=== PATIENT | male | born 1970 | race African-American/Black ===

== ENCOUNTER → 2017-01-16 | Outpatient (CLI) | payer OTHER ==
--- NOTE | 2017-01-17 05:29 | EEG ---
DATE OF SERVICE: 01/16/2017 REASON FOR TESTING: Syncope. DESCRIPTION OF THE PROCEDURE: This EEG was performed using a 21-channel digital electroencephalograph, following international 10-20 system. DESCRIPTION OF THE RECORDING: From the beginning of the tracing, and with the patient's eyes closed, the background rhythm was mostly consisting of 8 Hz alpha frequency in the posterior occipital leads. No obvious asymmetry is seen. EKG artifacts are noticed during the tracing. Photic stimulation was performed with a good driving response seen. No pathological waves were elicited. During the tracing, the patient does reach stage II of sleep and occasional K complexes and sleep spindles are seen. Occasional movement artifacts are noticed. No epileptiform discharges were seen. His EKG lead showed a regular rate and rhythm. INTERPRETATION: This asleep and awake EEG can be considered within normal limits. There was no asymmetry seen. No epileptiform discharges were noticed. The absence of epileptiform discharges does not rule out the diagnosis of epilepsy, therefore, clinical correlation is recommended. Thank you Dr. Kaur for allowing me to participate in the care of your patient. If you have any questions, please feel free to contact me. ROS
== END | disposition home or self-care (01) ==
LOC: NEUROMAIN 13:14
PROVIDERS: ATTEND Family Medicine
DX: R55 Syncope and collapse (principal)
CPT/HCPCS: 95819

== ENCOUNTER → 2017-01-23 | Outpatient (CLI) | payer OTHER ==
--- NOTE | 2017-01-23 15:12 | MR ---
EXAMINATION TYPE: MR brain wo con DATE OF EXAM: 01/23/2017 COMPARISON: Correlation CT orbits 09/17/2014 HISTORY: 46-year-old male with Syncope TECHNIQUE: Multiplanar, multisequence images of the brain and brainstem were acquired without IV con trast. Diffusion weighted imaging is performed. FINDINGS: No evidence for acute infarction, hemorrhage, mass, mass effect, midline shift, herniation, effacemen t of basal cisterns, or extra-axial fluid collection. The ventricles and sulci are age-appropriate. Major intracranial flow voids are intact. T2/FLAIR weighted sequences show mild to moderate scattered bright signal foci within the subcortical , deep, and periventricular white matter of both cerebral hemispheres. There are approximately 20 foc i on the right, largest measuring 6 mm in the subcortical frontal region, axial image 21 and approxim ately 30 on the left, largest measuring 6 mm in the anterior subcortical left frontal region, axial i mage 20. Midline structures demonstrate normal morphology. The craniocervical junction is normal. Bilateral exophthalmos is redemonstrated. Wbfe-tu-jocpvbve mucosal thickening within the ethmoid air cells and mild within the mastoid air cells. IMPRESSION: 1. No acute intracranial abnormality seen. 2. Mild to moderate scattered burden of bright white matter change in both cerebral hemispheres. Appr oximately 20 foci on the right and 30 foci on the left. These are nonspecific findings. Some differen tial considerations include age advanced changes of chronic small vessel ischemic disease, chronic mi graines, vasculitis, hypertension, and demyelinating disease. 3. Chronic bilateral exophthalmos. Mild chronic paranasal sinus disease.
== END ==
LOC: RADMRIMAIN 13:49
PROVIDERS: ATTEND Family Medicine
DX: R90.89 Other abnormal findings on diagnostic imaging of central nervous system (principal)
CPT/HCPCS: 70551

== ENCOUNTER 2017-06-19 07:01 | Day surgery (SDC) | payer OTHER ==
[2017-06-18 09:45] VITALS: BMI 32.6
[~2017-06-19 07:01] MED LIST: LACTATED RINGERS 1,000 ML IV SCH
[2017-06-19 07:49] VITALS: TEMP 97.7
[2017-06-19 07:52] LABS: Glucose,Whole Blood 125 mg/dL (75-99)
--- NOTE | 2017-06-19 08:59 | P.PCN ---
Date of Procedure: 06/19/17 Surgeon: Richard Geller Pathology: none sent Condition: stable Disposition: PACU Description of Procedure: PREOPERATIVE DIAGNOSIS: 1-eval pseudotumor cerebri POSTOPERATIVE DIAGNOSIS: same PROCEDURE 1. Diagnostic lumbar puncture ANESTHESIA: Local with 1% lidocaine; conscious sedation with Versed only EBL: Minimal PROCEDURE INDICATION: The patient with persistent headaches due to presumed pseudotumor cerebri presents for diagnostic LP as ordered by Dr. Olmos for opening pressure only. No use of blood thinners. PROCEDURE DESCRIPTION / TECHNIQUE: The patient was seen and identified in the preoperative area. Risks, benefits, complications, and alternatives were discussed with the patient, including but not limited to bleeding, infection, nerve damage, allergic reactions to medications, and spinal headache. The patient agreed to proceed with the procedure and signed the consent after all questions were answered. Vital signs were stable. Patient was taken to the procedure room and time out was completed to confirm patient position, procedure, area of pain, and allergies. The patient was placed in the sitting position on procedure table with help from nursing staff. The lumbosacral area was prepped and draped in the usual sterile fashion. Vital signs were closely monitored during the procedure. After localization with 1% lidocaine, a 22-gauge 3.5-inch spinal needle was placed in the L2-L3 interspace. Stylet was removed and clear cerebrospinal fluid was obtained. Opening pressure was measured at 33 cm H2O. 2 ml CSF was removed. COMPLICATIONS: None COMMENTS: None DISPOSITION / PLANS: The patient was placed in a supine position and transferred to the recovery area in a stable condition for observation. There was no evidence of lower extremity motor or sensory deficit after the procedure. Patient was discharged from the recovery room after meeting discharge criteria. Home discharge instructions were given to the patient by the staff, including regarding hydration and caffeine in order to prevent postdural puncture headache. The patient was reexamined prior to discharge and there were no issues. The patient will follow up with the neurologist as scheduled.
[2017-06-19] MEDS ORDERED: IV FLUID CONTINUATION 400 ML IV ONE (09:07)
[2017-06-19 09:24] VITALS: RESP 18
[2017-06-19 09:39] VITALS: BP 135/79; PULSE 56
== END 2017-06-19 10:36 | disposition home or self-care (01) ==
LOC: ORPAIN 07:01
PROVIDERS: ATTEND Anesthesiology
DX: G93.2 Benign intracranial hypertension (principal); G89.29 Other chronic pain; I10 Essential (primary) hypertension; E05.00 Thyrotoxicosis with diffuse goiter without thyrotoxic crisis or storm; J30.2 Other seasonal allergic rhinitis
CPT/HCPCS: 62270; J2250; 99152

== ENCOUNTER → 2017-09-08 | Outpatient (CLI) | payer OTHER ==
--- NOTE | 2017-09-08 08:46 | MR ---
EXAMINATION TYPE: MR brain wo/w con DATE OF EXAM: 09/08/2017 8:36 AM COMPARISON: Previous study dated 01/23/2017 HISTORY: Headaches, Gadavist 10ml, Previous MRI on PACS TECHNIQUE: Multiplanar, multiecho imaging of the brain was obtained with and without intravenous adm inistration of 10 mL intravenous Gadavist. FINDINGS: Midline structures are unremarkable. There is a normal craniocervical junction. Echoplanar diffusion imaging is normal. There is stable, mild exophthalmos present bilaterally. There is minimal mucoperiosteal thickening in volving ethmoid sinuses. There are normal vascular flow voids. There is no evidence of a CP angle mass lesion There may be a slight increase in the number of high signal FLAIR lesions in both cerebral hemisphere s. There is no mass effect, midline shift or intracranial blood. Following intravenous administration of gadolinium, I do not see evidence of abnormal enhancement. IMPRESSION: 1. NO ACUTE INTRACRANIAL ABNORMALITY. 2. STABLE EXOPHTHALMOS. 3. PERHAPS A SLIGHT INCREASE IN THE NUMBER OF HIGH SIGNAL FLAIR LESIONS IN THE CEREBRAL HEMISPHERES. A DIFFERENTIAL DIAGNOSIS WOULD INCLUDE SMALL VESSEL ISCHEMIC CHANGE, HYPERTENSION, MIGRAINE HEADACHES AND DEMYELINATION.
== END | disposition home or self-care (01) ==
LOC: RADMRIMAIN 07:47
PROVIDERS: ATTEND Psychiatry & Neurology Neurology
DX: H05.20 Unspecified exophthalmos (principal); G93.2 Benign intracranial hypertension
CPT/HCPCS: 70553; A9581

== ENCOUNTER → 2017-09-10 | Outpatient (CLI) | payer OTHER ==
--- NOTE | 2017-09-10 14:19 | CT ---
EXAMINATION TYPE: CT abdomen pelvis w con DATE OF EXAM: 09/10/2017 COMPARISON: NONE HISTORY: Abdominal pain and elevated LFT's CT DLP: 1509.70 mGycm Automated exposure control for dose reduction was used. TECHNIQUE: Helical acquisition of images was performed from the lung bases through the pelvis. CONTRAST: Performed with Oral Contrast and with IV Contrast, patient injected with 100 ml mL of Isovue 300. FINDINGS: LUNG BASES: Unremarkable LIVER/GB: Hepatic parenchyma is diffusely hypoattenuated in comparison to that of the spleen, most co mmonly seen in hepatic steatosis. This finding limits evaluation for hepatic masses. No gross evidenc e of hepatic mass is seen. No intrahepatic biliary ductal dilatation. No cholelithiasis . PANCREAS: No significant abnormality is seen. SPLEEN: No significant abnormality is seen. ADRENALS: No significant abnormality is seen. KIDNEYS: Too small to accurately characterize 3 mm left lower pole renal lesion is identified.. Other henning the kidneys enhance and excrete symmetrically without hydronephrosis. FREE AIR: No free air is visualized. REPRODUCTIVE ORGANS: Prostate gland is slightly heterogenous containing few central zone calcificatio ns. URINARY BLADDER: Urinary bladder is decompressed and incompletely evaluated. ADENOPATHY: No greater than 1 cm short axis lymph nodes are seen within the abdomen or pelvis. OSSEOUS STRUCTURES: Osseous structures are intact.. Mild degenerative changes are seen of the visual ized thoracolumbar spine. BOWEL: Multiple sigmoid diverticula are noted without pericolonic fat stranding. No evidence of srini l obstruction. Appendix is contrast-filled and within normal limits of size. OTHER: Subcentimeter periumbilical hernia is identified. IMPRESSION: FINDINGS MOST COMPATIBLE WITH HEPATIC STEATOSIS, APPEARING MILD IN DEGREE.
== END | disposition home or self-care (01) ==
LOC: RADCTMAIN 11:30
PROVIDERS: ATTEND Family Medicine
DX: R10.84 Generalized abdominal pain (principal); R94.5 Abnormal results of liver function studies
CPT/HCPCS: 74177; Q9967

== ENCOUNTER → 2018-02-07 | Outpatient (CLI) | payer OTHER ==
--- NOTE | 2018-02-08 07:57 | CT ---
EXAMINATION TYPE: CT abdomen pelvis w con DATE OF EXAM: 02/07/2018 COMPARISON: September 10, 2017 HISTORY: Pancreatic mass. CT DLP: 2068.1 mGycm CONTRAST: CT scan of the abdomen and pelvis is performed without Oral Contrast and with IV Contrast, patient in jected with 100 mL of Isovue 370. FINDINGS: LUNG BASES-: No visible nodule. No infiltrate. LIVER/GB: No calcified gallstones. Hepatic steatosis again noted. No space occupying hepatic lesio n. Biliary tree is of normal caliber. PANCREAS: No inflammation. No distinct mass. SPLEEN: No splenic enlargement. No lesion seen. ADRENALS: No nodule. No thickening. KIDNEYS/BLADDER: No hydronephrosis. No nephrolithiasis. No distinct renal mass. Urinary bladder g rossly unremarkable. BOWEL: Normal appendix. Normal bowel caliber. No inflammation. GENITAL ORGANS: No gross abnormality. LYMPH NODES: No greater than 1cm abdominal or pelvic lymph nodes are appreciated. AORTA: No significant abnormality. OSSEOUS STRUCTURES: No significant abnormality is seen. OTHER: No significant additional abnormality is seen. IMPRESSION: 1. Hepatic steatosis. 2. No evidence for pancreatic mass at this time.
== END | disposition home or self-care (01) ==
LOC: RADCTMAIN 18:08
PROVIDERS: ATTEND Family Medicine
DX: K76.0 Fatty (change of) liver, not elsewhere classified (principal)
CPT/HCPCS: 82565; 84520; 74177; 36415; Q9967

== ENCOUNTER → 2018-10-14 | Outpatient (CLI) | payer OTHER ==
--- NOTE | 2018-10-14 09:02 | CT ---
EXAMINATION TYPE: CT brain wo con, CT orbits wo con DATE OF EXAM: 10/14/2018 COMPARISON: MRI brain September 08, 2017. CT orbits September 17, 2014. HISTORY: Thyrotoxicosis with diffuse goiter, Graves disease and pseudo tumor cerebri. (accession [id number]), Thyrotoxicosis with diffuse goiter, Graves disease and pseudo tumor cerebri (accession [id number]) CT DLP: 1121.01 (accession [id number]), 391.11 (accession [id number]) mGycm. Automated Exposure Control for Dose Reduction was Utilized. TECHNIQUE: CT scan of the head and orbits are performed without contrast. FINDINGS: There is no acute intracranial hemorrhage, mass effect, or midline shift identified. The ventricles and sulci are within normal limits in size. Multifocal areas of low attenuation throughou t the white matter are present seen better on prior MRI. The calvarium is intact. Mastoid air cells s how no suspicious opacification. Mild mucosal thickening involving ethmoid sinuses bilaterally as well as anterior aspect bilateral sp henoid sinuses and inferior aspect right maxillary sinus is present. Old depressed fracture deformity nasal bridge is redemonstrated. There is bilateral proptosis redemonstrated. Intraconal fat is prese rved. Rectus muscles are symmetric and felt within normal limits. Orbital floors and quezada are intact . Suprasellar cistern is maintained. Optic chiasm is not effaced. IMPRESSION: 1. No acute intracranial hemorrhage or midline shift. Nonspecific mild to moderate white matter joya es redemonstrated seen better on MRI versus today's CT. 2. Stable bilateral exophthalmus.
== END ==
LOC: RADCTMAIN 08:13
PROVIDERS: ATTEND Ophthalmology
DX: E05.00 Thyrotoxicosis with diffuse goiter without thyrotoxic crisis or storm (principal); G93.2 Benign intracranial hypertension; I10 Essential (primary) hypertension; E11.9 Type 2 diabetes mellitus without complications; H05.20 Unspecified exophthalmos
CPT/HCPCS: 70450; 70480

== ENCOUNTER 2018-11-05 09:04 | Emergency (ER) | payer OTHER ==
[2018-11-05 09:10] VITALS: RESP 18
[2018-11-05] MEDS ORDERED: ONDANSETRON 4 MG/2 ML VIAL IVP STA (09:24)
[2018-11-05] MEDS ORDERED: MORPHINE SULFATE 4 MG/ML SYRINGE IV STA (09:24)
[2018-11-05] MEDS ORDERED: SODIUM CHLORIDE 0.9% 1,000 ML IV STA (09:24)
--- NOTE | 2018-11-05 09:28 | ED ---
General Adult HPI - General Chief complaint: Back Pain/Injury Stated complaint: Back pain Time Seen by Provider: 11/05/18 09:18 Source: patient, RN notes reviewed Mode of arrival: ambulatory Limitations: no limitations - History of Present Illness Initial comments: 48-year-old male presents emergency Department chief complaint of right flank pain. Patient states this was nauseated yesterday but woke up With worsening right flank pain that radiates into his abdomen. Patient states he still has some nausea no vomiting. He does take [place] is not alleviating his symptoms at this time. Patient denies fever, chills, chest pain or shortness breath. His pain is fairly exacerbated by movement but states it's not his typical back pain that he takes medications for. Denies any bowel bladder incontinence or retention. Patient states that he's been urinating more frequently but states that it is a large amount of urine out he states it's not hesitancy or dribbling. - Related Data Home Medications Medication Instructions Recorded Confirmed Albuterol Inhaler [Ventolin Hfa 1 - 2 puff INHALATION RT-Q6H PRN 06/18/17 11/05/18 Inhaler] Cetirizine HCl [Zyrtec] 10 mg PO HS 06/18/17 11/05/18 HYDROcodone/APAP 10-325MG [[place] 1 tab PO Q6H PRN 06/18/17 11/05/18 10-325] Levothyroxine Sodium [Synthroid] 112 mcg PO 1100 06/18/17 11/05/18 Lisinopril [Zestril] 5 mg PO 1100 06/18/17 11/05/18 Montelukast [Singulair] 10 mg PO HS 06/18/17 11/05/18 Acetaminophen [Tylenol] 650 mg PO Q6H 11/05/18 11/05/18 Atorvastatin [Lipitor] 10 mg PO DAILY 11/05/18 11/05/18 Bisoprolol-Hctz 10-6.25 mg [Ziac 1 tab PO DAILY 11/05/18 11/05/18 10-6.25 MG] Fluticasone/Salmeterol 1 puff INHALATION RT-BID 11/05/18 11/05/18 [Fluticasone-Salmeterol 113-14] Ipratropium Winn 0.06%Nasal 2 sprays EA NOSTRIL BID 11/05/18 11/05/18 [Atrovent Nasal 0.06%] Liraglutide [Victoza 3-Eliu] 1.2 mg SQ DAILY 11/05/18 11/05/18 Omeprazole 40 mg PO DAILY 11/05/18 11/05/18 Pioglitazone [Actos] 45 mg PO DAILY 11/05/18 11/05/18 Allergies Allergy/AdvReac Type Severity Reaction Status Date / Time Pork/Porcine Containing Allergy Nausea & Verified 11/05/18 09:21 Products Vomiting & [Pork] Diarrhea Review of Systems ROS Statement: Those systems with pertinent positive or pertinent negative responses have been documented in the HPI. ROS Other: All systems not noted in ROS Statement are negative. Past Medical History Past Medical History: Asthma, Diabetes Mellitus, Hypertension, Pneumonia, Sleep Apnea/CPAP/BIPAP, Thyroid Disorder Additional Past Medical History / Comment(s): recent pneumonia, migraines, used to use CPAP History of Any Multi-Drug Resistant Organisms: None Reported Past Surgical History: Orthopedic Surgery Additional Past Surgical History / Comment(s): arthroscopy knee Past Anesthesia/Blood Transfusion Reactions: No Reported Reaction Past Psychological History: No Psychological Hx Reported Smoking Status: Never smoker Past Alcohol Use History: Occasional Past Drug Use History: Marijuana - Past Family History Mother Family Medical History: No Reported History General Exam Limitations: no limitations General appearance: alert, in no apparent distress Head exam: Present: atraumatic, normocephalic, normal inspection Neck exam: Present: normal inspection. Absent: tenderness, meningismus, lymphadenopathy Respiratory exam: Present: normal lung sounds bilaterally. Absent: respiratory distress, wheezes, rales, rhonchi, stridor Cardiovascular Exam: Present: regular rate, normal rhythm, normal heart sounds. Absent: systolic murmur, diastolic murmur, rubs, gallop, clicks GI/Abdominal exam: Present: soft, tenderness (Mild right-sided), normal bowel sounds. Absent: distended, guarding, rebound, rigid Back exam: Present: CVA tenderness (R). Absent: CVA tenderness (L) Skin exam: Present: warm, dry, intact, normal color. Absent: rash Course Vital Signs 11/05/18 09:07 Temperature 98.5 F Pulse Rate 74 Respiratory 18 Rate Blood Pressure 133/91 O2 Sat by Pulse 98 Oximetry Medical Decision Making - Medical Decision Making 48-year-old male present emergency from for right flank pain. Patient CT labs and urinalysis which unremarkable. This may be related to his chronic back pain with acute exacerbation. Patient will be discharged return parameters were discussed. Patient has no red flag symptoms. - Lab Data Result diagrams: 11/05/18 09:44 11/05/18 09:44 Lab Results 11/05/18 11/05/18 11/05/18 Range/Units 09:44 09:44 11:05 WBC 5.4 (3.8-10.6) k/uL RBC 4.74 (4.30-5.90) m/uL Hgb 14.1 (13.0-17.5) gm/dL Hct 43.1 (39.0-53.0) % MCV 91.0 (80.0-100.0) fL MCH 29.7 (25.0-35.0) pg MCHC 32.6 (31.0-37.0) g/dL RDW 14.9 (11.5-15.5) % Plt Count 269 (150-450) k/uL Neutrophils % 56 % Lymphocytes % 27 % Monocytes % 5 % Eosinophils % 9 % Basophils % 0 % Neutrophils # 3.0 (1.3-7.7) k/uL Lymphocytes # 1.5 (1.0-4.8) k/uL Monocytes # 0.3 (0-1.0) k/uL Eosinophils # 0.5 (0-0.7) k/uL Basophils # 0.0 (0-0.2) k/uL Sodium 138 (137-145) mmol/L Potassium 4.7 (3.5-5.1) mmol/L Chloride 104 (98-107) mmol/L Carbon Dioxide 29 (22-30) mmol/L Anion Gap 5 mmol/L BUN 14 (9-20) mg/dL Creatinine 1.47 H (0.66-1.25) mg/dL Est GFR (CKD-EPI)AfAm 65 (>60 ml/min/1.73 sqM) Est GFR (CKD-EPI)NonAf 57 (>60 ml/min/1.73 sqM) Glucose 122 H (74-99) mg/dL Calcium 9.5 (8.4-10.2) mg/dL Total Bilirubin 0.5 (0.2-1.3) mg/dL AST 30 (17-59) U/L ALT 32 (21-72) U/L Alkaline Phosphatase 73 (38-126) U/L Total Protein 7.3 (6.3-8.2) g/dL Albumin 4.1 (3.5-5.0) g/dL Amylase 78 (30-110) U/L Lipase 150 (23-300) U/L Urine Color Light Yellow Urine Appearance Clear (Clear) Urine pH 7.0 (5.0-8.0) Ur Specific Leonard 1.007 (1.001-1.035) Urine Protein Negative (Negative) Urine Glucose (UA) Negative (Negative) Urine Ketones Negative (Negative) Urine Blood Negative (Negative) Urine Nitrite Negative (Negative) Urine Bilirubin Negative (Negative) Urine Urobilinogen <2.0 (<2.0) mg/dL Ur Leukocyte Esterase Negative (Negative) Disposition Clinical Impression: Flank pain, Back pain Disposition: HOME SELF-CARE Instructions (If sedation given, give patient instructions): Acute Low Back Pain (ED) Additional Instructions: Please return to the Emergency Department if symptoms worsen or any other concerns. Is patient prescribed a controlled substance at d/c from ED?: No Referrals: Jimena Arevalo DO [Primary Care Provider] - 1-2 days Time of Disposition: 11:45
--- NOTE | 2018-11-05 10:15 | CT ---
EXAMINATION TYPE: CT abdomen pelvis wo con DATE OF EXAM: 11/05/2018 HISTORY: Right flank pain CT DLP: 883.6 mGycm. Automated Exposure Control for Dose Reduction was Utilized. TECHNIQUE: CT scan of the abdomen and pelvis is performed without oral or IV contrast. COMPARISON: CT abdomen pelvis February 07, 2018 FINDINGS: Within the limitations of a non-contrast study, the following observations are made. LUNG BASES: No significant abnormality is appreciated. LIVER/GB: No significant abnormality is appreciated. PANCREAS: No significant abnormality is seen. SPLEEN: No significant abnormality is seen. ADRENALS: No significant abnormality is seen. KIDNEYS: No renal calculi or hydronephrosis is seen bilaterally. No intraluminal calculus in the blad brianna is present. Left-sided pelvic phlebolith is noted axial image 139. BOWEL: Evaluation of bowel is suboptimal secondary to lack of enteric contrast. There is no suspiciou s small or large bowel dilatation. Appendix felt within normal limits descending from cecum in the ri ght lower quadrant medial aspect. GENITAL ORGANS: No gross abnormality seen. LYMPH NODES: No greater than 1cm abdominal or pelvic lymph nodes are appreciated. OSSEOUS STRUCTURES: Spine is straightened on sagittal images with disc herniation L4-L5 level. Mild t o moderate narrowing and acetabular spurring in both hips is present. OTHER: No significant additional abnormality is seen. IMPRESSION: No renal stones or hydronephrosis is seen bilaterally. No suspicious acute findings seen to account for patient's symptoms of right-sided flank pain.
[2018-11-05 10:19] LABS: Albumin 4.1 g/dL (3.5-5.0); Calcium 9.5 mg/dL (8.4-10.2); Potassium 4.7 mmol/L (3.5-5.1); Total Bilirubin 0.5 mg/dL (0.2-1.3); Total Protein 7.3 g/dL (6.3-8.2)
[2018-11-05 10:23] LABS: Basophils % (A) 0 %; Eosinophils # (A) 0.5 k/uL (0-0.7); Eosinophils % (A) 9 %; HCT 43.1 % (39.0-53.0); HGB 14.1 gm/dL (13.0-17.5); Lymphocytes # (A) 1.5 k/uL (1.0-4.8); Lymphocytes % (A) 27 %; MCH 29.7 pg (25.0-35.0); MCHC 32.6 g/dL (31.0-37.0); Mean Platelet Volume 7.3; Monocytes # (A) 0.3 k/uL (0-1.0); Monocytes % (A) 5 %; Neutrophils % (A) 56 %; Platelet Count 269 k/uL (150-450); RBC 4.74 m/uL (4.30-5.90); RDW 14.9 % (11.5-15.5); WBC 5.4 k/uL (3.8-10.6)
[2018-11-05 11:26] LABS: Appearance,Urine Clear (Clear); Bilirubin,Urine Negative (Negative); Blood,Urine Negative (Negative); Color,Urine Light Yellow; Glucose,Urine (UA) Negative (Negative); Ketones,Urine Negative (Negative); Leukocyte Esterase,Urine Negative (Negative); Nitrite,Urine Negative (Negative); Protein,Urine Negative (Negative); Specific Gravity,Urine 1.007 (1.001-1.035); Urobilinogen,Urine <2.0 mg/dL (<2.0)
[2018-11-05 12:09] VITALS: BP 123/73; PULSE 60; TEMP 97.8
== END 2018-11-05 12:08 | disposition home or self-care (01) ==
LOC: EC 09:04
DX: R10.9 Unspecified abdominal pain (principal); M54.9 Dorsalgia, unspecified; J45.909 Unspecified asthma, uncomplicated; E11.9 Type 2 diabetes mellitus without complications; I10 Essential (primary) hypertension; G47.30 Sleep apnea, unspecified; Z99.89 Dependence on other enabling machines and devices; E07.9 Disorder of thyroid, unspecified; Z79.890 Hormone replacement therapy; Z79.899 Other long term (current) drug therapy; Z91.018 Allergy to other foods
CPT/HCPCS: 36415; 80053; 82150; 83690; 85025; 81003; 74176; 99284; 96374; 96375; 96361; J2270; J2405

== ENCOUNTER 2020-04-27 21:54 | Emergency (ER) | payer OTHER ==
[2020-04-27 22:07] VITALS: BP 148/90; PULSE 65; RESP 16; TEMP 98.3
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
[2020-04-27] MEDS ORDERED: KETOROLAC 15 MG/ML 1 ML VIAL IM STA (23:14)
== END 2020-04-27 23:28 | disposition home or self-care (01) ==
LOC: EC 21:54
DX: S46.812A Strain of other muscles, fascia and tendons at shoulder and upper arm level, left arm, initial encounter (principal); J45.909 Unspecified asthma, uncomplicated; E11.9 Type 2 diabetes mellitus without complications; I10 Essential (primary) hypertension; G47.30 Sleep apnea, unspecified; E07.9 Disorder of thyroid, unspecified; Z79.890 Hormone replacement therapy; Z79.51 Long term (current) use of inhaled steroids; Z79.899 Other long term (current) drug therapy; Z91.018 Allergy to other foods; Z99.89 Dependence on other enabling machines and devices; V89.2XXA Person injured in unspecified motor-vehicle accident, traffic, initial encounter; Y92.410 Unspecified street and highway as the place of occurrence of the external cause
CPT/HCPCS: 72125; 70450; 99284; 96372; J1885

== ENCOUNTER → 2020-07-09 | Outpatient (CLI) | payer OTHER ==
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
== END | disposition home or self-care (01) ==
LOC: RADMRIMAIN 13:29
PROVIDERS: ATTEND Physical Medicine & Rehabilitation
DX: M47.26 Other spondylosis with radiculopathy, lumbar region (principal)
CPT/HCPCS: 72158; A9585

== ENCOUNTER → 2020-08-23 | Outpatient (CLI) | payer OTHER ==
--- NOTE | 2020-08-23 16:00 | XR ---
EXAMINATION TYPE: XR thoracic spine complete, 3 views DATE OF EXAM: 08/23/2020 Comparison: None Clinical History: 50-year-old male M51.37 DDD Findings: 12 rib-bearing thoracic vertebral bodies. All pedicles are visualized. Mild degenerative disc disease and endplate spondylosis throughout. Vertebral body heights are preserved and alignment is maintaine d. Impression: Mild degenerative disc disease and endplate spondylosis throughout. No vertebral compression collapse or malalignment.
== END ==
LOC: RADXRMAIN 14:14
PROVIDERS: ATTEND Physical Medicine & Rehabilitation
DX: M51.37 Other intervertebral disc degeneration, lumbosacral region (principal); M47.817 Spondylosis without myelopathy or radiculopathy, lumbosacral region
CPT/HCPCS: 72072

== ENCOUNTER → 2021-02-09 | Outpatient (CLI) | payer OTHER ==
[2021-02-09 09:08] VITALS: BP 128/85; PULSE 69; RESP 18; TEMP 97.9
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
== END ==
LOC: PNWHC3 08:53
PROVIDERS: ATTEND Specialist
DX: M51.36 Other intervertebral disc degeneration, lumbar region (principal); M47.816 Spondylosis without myelopathy or radiculopathy, lumbar region; M51.34 Other intervertebral disc degeneration, thoracic region; M79.18 Myalgia, other site; J45.909 Unspecified asthma, uncomplicated; E11.9 Type 2 diabetes mellitus without complications; I10 Essential (primary) hypertension; G43.909 Migraine, unspecified, not intractable, without status migrainosus; Z79.84 Long term (current) use of oral hypoglycemic drugs; Z79.899 Other long term (current) drug therapy; Z91.018 Allergy to other foods
CPT/HCPCS: 99211

== ENCOUNTER 2021-02-10 16:52 | Observation (INO) | payer OTHER ==
[2021-02-10] MEDS ORDERED: SODIUM CHLORIDE 0.9% 1,000 ML IV STA (19:54)
[2021-02-10] MEDS ORDERED: KETOROLAC 15 MG/ML 1 ML VIAL IVP STA (19:55)
--- NOTE | 2021-02-10 19:57 | ED ---
Abdominal Pain HPI - General Chief Complaint: Abdominal Pain Stated Complaint: Abd pain Time Seen by Provider: 02/10/21 19:25 Source: patient, RN notes reviewed Mode of arrival: ambulatory Limitations: no limitations - History of Present Illness Initial Comments: 42-year-old male history diabetes who states he was feeling well until last evening when he started developing some nonspecific abdominal discomfort he later developed some nausea with dry heaves he fell he was constipated cardiac bowel movements and didn't pass much. He states he later vomited up what appear to be a meal from a couple days ago. On further questioning states he is not p assing gas. He's had some chills no fevers no sweats some other symptoms reported at this time. No prior abdominal surgeries. MD Complaint: abdominal pain - Related Data Home Medications Medication Instructions Recorded Confirmed Cetirizine HCl [Zyrtec] 10 mg PO BID PRN 06/18/17 02/07/21 HYDROcodone/APAP 10-325MG [[place] 1 tab PO QID PRN 06/18/17 02/07/21 10-325] Levothyroxine Sodium [Synthroid] 112 mcg PO DAILY 06/18/17 02/07/21 Montelukast [Singulair] 10 mg PO DAILY 06/18/17 02/07/21 Bisoprolol-Hctz 10-6.25 mg [Ziac 1 tab PO DAILY 11/05/18 02/07/21 10-6.25 MG] Fluticasone/Salmeterol 2 puff INHALATION RT-BID PRN 11/05/18 02/07/21 [Fluticasone-Salmeterol 113-14] Ipratropium [place] 0.06%Nasal 2 sprays EA NOSTRIL BID PRN 11/05/18 02/07/21 [Atrovent Nasal 0.06%] lisinopriL [Zestril] 5 mg PO DAILY 04/27/20 02/07/21 Diabetic Med (Unknown Name) 1 tab PO DAILY 02/07/21 02/07/21 Liraglutide [Victoza 3-Eliu] 1.8 mg SQ DAILY 02/07/21 02/07/21 Previous Rx's Medication Instructions Recorded Cyclobenzaprine [Flexeril] 5 mg PO BID PRN #10 tablet 04/27/20 Allergies Allergy/AdvReac Type Severity Reaction Status Date / Time Pork/Porcine Containing Allergy Nausea & Verified 02/10/21 19:02 Products Vomiting & [Pork] Diarrhea Review of Systems ROS Statement: Those systems with pertinent positive or pertinent negative responses have been documented in the HPI. ROS Other: All systems not noted in ROS Statement are negative. Past Medical History Past Medical History: Asthma, Diabetes Mellitus, Hypertension, Musculoskeletal Disorder, Pneumonia, Sleep Apnea/CPAP/BIPAP, Thyroid Disorder Additional Past Medical History / Comment(s): Hx Pneumonia, chronic migraines, used to use CPAP, Degenerative Disc Disease. Received last dose of Moderna 09/29/20. Chronic back pain. History of Any Multi-Drug Resistant Organisms: None Reported Past Surgical History: Orthopedic Surgery Additional Past Surgical History / Comment(s): Bilateral knee arthroscopy knee, spinal tap. Past Anesthesia/Blood Transfusion Reactions: No Reported Reaction Past Psychological History: No Psychological Hx Reported Smoking Status: Never smoker Past Alcohol Use History: Rare Past Drug Use History: Marijuana - Past Family History Mother Family Medical History: No Reported History General Exam - General Exam Comments Initial Comments: Is a well-developed well-nourished awake alert oriented times 3 male Limitations: no limitations General appearance: alert, in no apparent distress Head exam: Present: atraumatic, normocephalic, normal inspection Eye exam: Present: normal appearance, PERRL, EOMI. Absent: scleral icterus, conjunctival injection, periorbital swelling ENT exam: Present: normal exam, mucous membranes moist Neck exam: Present: normal inspection. Absent: tenderness, meningismus, lymphadenopathy Respiratory exam: Present: normal lung sounds bilaterally. Absent: respiratory distress, wheezes, rales, rhonchi, stridor Cardiovascular Exam: Present: regular rate, normal rhythm, normal heart sounds. Absent: systolic murmur, diastolic murmur, rubs, gallop, clicks GI/Abdominal exam: Present: soft, tenderness, normal bowel sounds. Absent: distended, guarding, rebound, rigid Extremities exam: Present: normal inspection, full ROM, normal capillary refill. Absent: tenderness, pedal edema, joint swelling, calf tenderness Back exam: Present: normal inspection Neurological exam: Present: alert, oriented X3, CN II-XII intact Psychiatric exam: Present: normal affect, normal mood Skin exam: Present: warm, dry, intact, normal color. Absent: rash Course Vital Signs 02/10/21 18:55 Temperature 98.3 F Pulse Rate 69 Respiratory 17 Rate Blood Pressure 132/83 O2 Sat by Pulse 97 Oximetry Medical Decision Making - Medical Decision Making Reevaluation patient reveals he still feels nauseated with abdominal discomfort. I did discuss the findings with him and his family also with Dr. Casas patient be admitted for IV fluids and evaluation repeat lipase in the morning - Lab Data Result diagrams: 02/10/21 20:22 02/10/21 20:22 Lab Results 02/10/21 02/10/21 02/10/21 Range/Units 20:22 20: 20:22 WBC 9.8 (3.8-10.6) k/uL RBC 4.97 (4.30-5.90) m/uL Hgb 15.6 (13.0-17.5) gm/dL Hct 45.7 (39.0-53.0) % MCV 91.9 (80.0-100.0) fL MCH 31.5 (25.0-35.0) pg MCHC 34.3 (31.0-37.0) g/dL RDW 13.9 (11.5-15.5) % Plt Count 294 (150-450) k/uL MPV 7.5 Neutrophils % 64 % Lymphocytes % 25 % Monocytes % 4 % Eosinophils % 4 % Basophils % 1 % Neutrophils # 6.3 (1.3-7.7) k/uL Lymphocytes # 2.4 (1.0-4.8) k/uL Monocytes # 0.4 (0-1.0) k/uL Eosinophils # 0.4 (0-0.7) k/uL Basophils # 0.1 (0-0.2) k/uL Sodium 139 (137-145) mmol/L Potassium 3.8 (3.5-5.1) mmol/L Chloride 102 (98-107) mmol/L Carbon Dioxide 27 (22-30) mmol/L Anion Gap 10 mmol/L BUN 13 (9-20) mg/dL Creatinine 1.52 H (0.66-1.25) mg/dL Est GFR (CKD-EPI)AfAm 62 (>60 ml/min/1.73 sqM) Est GFR (CKD-EPI)NonAf 54 (>60 ml/min/1.73 sqM) Glucose 110 H (74-99) mg/dL Plasma Lactic Acid Cj (0.7-2.0) mmol/L Calcium 10.0 (8.4-10.2) mg/dL Total Bilirubin 0.6 (0.2-1.3) mg/dL AST 42 (17-59) U/L ALT 52 H (4-49) U/L Alkaline Phosphatase 99 (38-126) U/L Creatine Kinase 419 H (55-170) U/L Troponin I (0.000-0.034) ng/mL Total Protein 8.1 (6.3-8.2) g/dL Albumin 4.6 (3.5-5.0) g/dL Amylase 123 H (30-110) U/L Lipase 356 H (23-300) U/L Urine Color Yellow Urine Appearance Clear (Clear) Urine pH 6.0 (5.0-8.0) Ur Specific [place] 1.025 (1.001-1.035) Urine Protein 1+ H (Negative) Urine Glucose (UA) Negative (Negative) Urine Ketones Negative (Negative) Urine Blood Trace H (Negative) Urine Nitrite Negative (Negative) Urine Bilirubin Negative (Negative) Urine Urobilinogen <2.0 (<2.0) mg/dL Ur Leukocyte Esterase Negative (Negative) Urine RBC 1 (0-5) /hpf Urine WBC 14 H (0-5) /hpf Urine Mucus Rare H (None) /hpf 02/10/21 02/10/21 Range/Units 20:22 20:22 WBC (3.8-10.6) k/uL RBC (4.30-5.90) m/uL Hgb (13.0-17.5) gm/dL Hct (39.0-53.0) % MCV (80.0-100.0) fL MCH (25.0-35.0) pg MCHC (31.0-37.0) g/dL RDW (11.5-15.5) % Plt Count (150-450) k/uL MPV Neutrophils % % Lymphocytes % % Monocytes % % Eosinophils % % Basophils % % Neutrophils # (1.3-7.7) k/uL Lymphocytes # (1.0-4.8) k/uL Monocytes # (0-1.0) k/uL Eosinophils # (0-0.7) k/uL Basophils # (0-0.2) k/uL Sodium (137-145) mmol/L Potassium (3.5-5.1) mmol/L Chloride (98-107) mmol/L Carbon Dioxide (22-30) mmol/L Anion Gap mmol/L BUN (9-20) mg/dL Creatinine (0.66-1.25) mg/dL Est GFR (CKD-EPI)AfAm (>60 ml/min/1.73 sqM) Est GFR (CKD-EPI)NonAf (>60 ml/min/1.73 sqM) Glucose (74-99) mg/dL Plasma Lactic Acid Cj 1.1 (0.7-2.0) mmol/L Calcium (8.4-10.2) mg/dL Total Bilirubin (0.2-1.3) mg/dL AST (17-59) U/L ALT (4-49) U/L Alkaline Phosphatase (38-126) U/L Creatine Kinase (55-170) U/L Troponin I <0.012 (0.000-0.034) ng/mL Total Protein (6.3-8.2) g/dL Albumin (3.5-5.0) g/dL Amylase (30-110) U/L Lipase (23-300) U/L Urine Color Urine Appearance (Clear) Urine pH (5.0-8.0) Ur Specific [place] (1.001-1.035) Urine Protein (Negative) Urine Glucose (UA) (Negative) Urine Ketones (Negative) Urine Blood (Negative) Urine Nitrite (Negative) Urine Bilirubin (Negative) Urine Urobilinogen (<2.0) mg/dL Ur Leukocyte Esterase (Negative) Urine RBC (0-5) /hpf Urine WBC (0-5) /hpf Urine Mucus (None) /hpf - Radiology Data Radiology results: report reviewed (Imaging reviewed and report reviewed no acute findings), image reviewed Disposition Clinical Impression: Abdominal pain, Constipation, Pancreatitis, Dehydration Disposition: ADMITTED IP TO THIS [facility] Condition: Fair Referrals: Jimena Arevalo DO [Primary Care Provider] - 1-2 days
[2021-02-10 20:32] LABS: Basophils # (A) 0.1 k/uL (0-0.2); Basophils % (A) 1 %; Eosinophils # (A) 0.4 k/uL (0-0.7); Eosinophils % (A) 4 %; HCT 45.7 % (39.0-53.0); HGB 15.6 gm/dL (13.0-17.5); Lymphocytes # (A) 2.4 k/uL (1.0-4.8); Lymphocytes % (A) 25 %; MCH 31.5 pg (25.0-35.0); MCHC 34.3 g/dL (31.0-37.0); MCV 91.9 fL (80.0-100.0); Mean Platelet Volume 7.5; Monocytes # (A) 0.4 k/uL (0-1.0); Monocytes % (A) 4 %; Neutrophils # (A) 6.3 k/uL (1.3-7.7); Neutrophils % (A) 64 %; Platelet Count 294 k/uL (150-450); RBC 4.97 m/uL (4.30-5.90); RDW 13.9 % (11.5-15.5); WBC 9.8 k/uL (3.8-10.6)
[2021-02-10 20:46] LABS: Albumin 4.6 g/dL (3.5-5.0); Potassium 3.8 mmol/L (3.5-5.1); Total Bilirubin 0.6 mg/dL (0.2-1.3); Total Protein 8.1 g/dL (6.3-8.2)
[2021-02-10 20:49] LABS: Appearance,Urine Clear (Clear); Bilirubin,Urine Negative (Negative); Blood,Urine Trace (Negative); Color,Urine Yellow; Glucose,Urine (UA) Negative (Negative); Ketones,Urine Negative (Negative); Leukocyte Esterase,Urine Negative (Negative); Mucus,Urine Rare /hpf; Nitrite,Urine Negative (Negative); Protein,Urine 1+ (Negative); RBC,Urine 1 /hpf (0-5); Specific Gravity,Urine 1.025 (1.001-1.035); Urobilinogen,Urine <2.0 mg/dL (<2.0); WBC,Urine 14 /hpf (0-5)
--- NOTE | 2021-02-10 21:38 | XR ---
EXAMINATION TYPE: XR KUB 2 VIEWS DATE OF EXAM: 02/10/2021 9:03 PM CLINICAL HISTORY: Pain and constipation TECHNIQUE: Single supine KUB image of the abdomen is obtained. COMPARISON: None. FINDINGS: Visualized lung bases and pleural spaces are negative. Scattered gas is seen in non-distended small bowel loops. Gas and fecal material is seen in non-diste nded colon. There is no visceromegaly, pneumoperitoneum, or abnormal calcification appreciated. The osseous structures are intact. IMPRESSION: No acute radiographic process.
--- NOTE | 2021-02-10 22:06 | CT ---
EXAMINATION TYPE: CT abdomen pelvis w con DATE OF EXAM: 02/10/2021 COMPARISON: 08/05/2018 HISTORY: Abdominal pain, nausea and constipation. CT DLP: 1480.8 mGycm Automated exposure control for dose reduction was used. TECHNIQUE: Helical acquisition of images was performed from the lung bases through the pelvis. CONTRAST: Performed without Oral Contrast and with IV Contrast, patient injected with 80ml mL of Isov ue 300. FINDINGS: LUNG BASES: No significant abnormality is appreciated. LIVER/GB: No significant abnormality is appreciated. PANCREAS: No significant abnormality is seen. SPLEEN: No significant abnormality is seen. ADRENALS: No significant abnormality is seen. KIDNEYS: No significant abnormality is seen. FREE AIR: No free air is visualized. RETROPERITONEAL ADENOPATHY: None visualized REPRODUCTIVE ORGANS: No significant abnormality is seen URINARY BLADDER: No significant abnormality is seen. PELVIC ADENOPATHY: None visualized. OSSEOUS STRUCTURES: No significant abnormality is seen. BOWEL: No significant abnormality is seen. OTHER: No acute vascular findings.44 IMPRESSION: NO ACUTE PROCESS.
[2021-02-10] MEDS ORDERED: KETOROLAC 15 MG/ML 1 ML VIAL IVP PRN (23:01)
[2021-02-10] MEDS ORDERED: NALOXONE 0.4 MG/ML 1 ML VIAL IV PRN (23:01)
[2021-02-10] MEDS ORDERED: CYCLOBENZAPRINE 5 MG TAB PO PRN (23:03)
[2021-02-11] MEDS: SODIUM CHLORIDE 0.9% 1,000 ML IV SCH ×4 (00:50→22:39)
[2021-02-11] MEDS: HYDROcodone/APAP 10-325MG 1 EACH TAB PO PRN ×3 (00:58→15:08)
[2021-02-11] MEDS: BISOPROLOL-HCTZ 10-6.25 MG 1 EACH TAB PO SCH (08:28)
[2021-02-11] MEDS: MONTELUKAST 10 MG TAB PO SCH (08:28)
[2021-02-11] MEDS: lisinopriL 10 MG TAB PO SCH (08:29)
[2021-02-11] MEDS: LEVOTHYROXINE 112 MCG TAB PO SCH (08:29)
[2021-02-11] MEDS ORDERED: IPRATROPIUM BROMIDE 0.06% NASAL SPRAY (15 ML) EA NOSTRIL PRN (09:00)
[2021-02-11] MEDS ORDERED: LORATADINE 10 MG TAB PO PRN (09:00)
[2021-02-11] MEDS: ONDANSETRON 4 MG/2 ML VIAL IVP PRN ×2 (15:04→19:55)
[2021-02-11 15:36] LABS: African American GFR (CKD) 68 (>60 ml/min/1.73 sqM); Anion Gap 8 mmol/L; Blood Urea Nitrogen 13 mg/dL (9-20); Carbon Dioxide 25 mmol/L (22-30); Chloride 103 mmol/L (98-107); Creatine Kinase 349 U/L (55-170); Glucose 152 mg/dL (74-99); Lipase 171 U/L (23-300); Non-African American GFR(CKD) 59 (>60 ml/min/1.73 sqM); Potassium 3.8 mmol/L (3.5-5.1); Sodium 136 mmol/L (137-145)
[2021-02-11] MEDS: SYMBICORT 160-4.5 MCG INHALER INHALATION PRN (20:04)
[2021-02-12] MEDS: SODIUM CHLORIDE 0.9% 1,000 ML IV SCH ×3 (00:52→23:04)
[2021-02-12] MEDS: LEVOTHYROXINE 112 MCG TAB PO SCH (06:07)
[2021-02-12] MEDS: MONTELUKAST 10 MG TAB PO SCH (09:50)
[2021-02-12] MEDS: HYDROcodone/APAP 10-325MG 1 EACH TAB PO PRN (09:54)
--- NOTE | 2021-02-12 10:15 | P.HPIM ---
History of Present Illness H&P Date: 02/11/21 Chief Complaint: Abdominal pain 42-year-old male history diabetes, hypertension, asthma, who states he was feeling well until last evening when he started developing some nonspecific abdominal discomfort he later developed some nausea with dry heaves he fell he was constipated cardiac bowel movements and didn't pass much. He states he later vomited up what appear to be a meal from a couple days ago. On further questioning states he is not passing gas. He's had some chills no fevers no sweats some other symptoms reported at this time. No prior abdominal surgeries. Blood work in ED reveals elevated amylase and lipase of 123, 356 respectively, B UN/creatinine at 13/1.52, CBC reveals WBC 9.8, hemoglobin 15.6 and platelet count of 294 Patient is being admitted to the hospital for acute pancreatitis, acute renal injury and dehydration Review of Systems REVIEW OF SYSTEMS: CONSTITUTIONAL: No fever, no malaise, no fatigue. HEENT: No recent visual problems or hearing problems. Denied any sore throat. CARDIOVASCULAR: No chest pain, orthopnea, PND, no palpitations, no syncope. PULMONARY: No shortness of breath, no cough, no hemoptysis. GASTROINTESTINAL: No diarrhea, no nausea, no vomiting, no abdominal pain. NEUROLOGICAL: No headaches, no weakness, no numbness. HEMATOLOGICAL: Denies any bleeding or petechiae. GENITOURINARY: Denies any burning micturition, frequency, or urgency. MUSCULOSKELETAL/RHEUMATOLOGICAL: Denies any joint pain, swelling, or any muscle pain. ENDOCRINE: Denies any polyuria or polydipsia. The rest of the 14-point review of systems is negative. Past Medical History Past Medical History: Asthma, Diabetes Mellitus, Hypertension, Musculoskeletal Disorder, Pneumonia, Sleep Apnea/CPAP/BIPAP, Thyroid Disorder Additional Past Medical History / Comment(s): Hx Pneumonia, chronic migraines, used to use CPAP, Degenerative Disc Disease. Received last dose of Moderna 09/29/20. Chronic back pain. History of Any Multi-Drug Resistant Organisms: None Reported Past Surgical History: Orthopedic Surgery Additional Past Surgical History / Comment(s): Bilateral knee arthroscopy knee, spinal tap. Past Anesthesia/Blood Transfusion Reactions: No Reported Reaction Past Psychological History: No Psychological Hx Reported Smoking Status: Never smoker Past Alcohol Use History: Rare Past Drug Use History: Marijuana - Past Family History Mother Family Medical History: No Reported History, Hypertension Medications and Allergies Home Medications Medication Instructions Recorded Confirmed Type Cetirizine HCl [Zyrtec] 10 mg PO BID PRN 06/18/17 02/10/21 History HYDROcodone/APAP 10-325MG [[place] 1 tab PO QID PRN 06/18/17 02/10/21 History 10-325] Levothyroxine Sodium [Synthroid] 112 mcg PO DAILY 06/18/17 02/10/21 History Montelukast [Singulair] 10 mg PO DAILY 06/18/17 02/10/21 History Bisoprolol-Hctz 10-6.25 mg [Ziac 1 tab PO DAILY 11/05/18 02/10/21 History 10-6.25 MG] lisinopriL [Zestril] 5 mg PO DAILY 04/27/20 02/10/21 History Liraglutide [Victoza 3-Eliu] 1.8 mg SQ DAILY 02/07/21 02/10/21 History Atorvastatin Calcium [Lipitor] 40 mg PO DAILY 02/10/21 02/10/21 History Omeprazole [PriLOSEC] 40 mg PO DAILY 02/10/21 02/10/21 History Repaglinide [Prandin] 1 mg PO AC-TID 02/10/21 02/10/21 History Sildenafil Citrate [Viagra] 100 mg PO DAILY PRN 02/10/21 02/10/21 History metFORMIN HCL ER [Glucophage XR] 500 mg PO BID 02/10/21 02/10/21 History methocarbamoL [Methocarbamol] 500 mg PO DAILY PRN 02/10/21 02/10/21 History Allergies Allergy/AdvReac Type Severity Reaction Status Date / Time Pork/Porcine Containing Allergy Nausea & Verified 02/10/21 23:19 Products Vomiting & [Pork] Diarrhea Physical Exam Vitals: Vital Signs Temp Pulse Pulse Resp BP BP Pulse Ox 02/11/21 12:59 98.7 F 57 L 18 152/82 02/11/21 10:28 98.7 F 57 L 17 152/82 97 02/11/21 06:25 77 18 134/99 96 02/11/21 05:02 18 02/11/21 00:52 60 18 125/76 97 02/10/21 18:55 98.3 F 69 17 132/83 97 Intake and Output 02/10/21 02/11/21 02/11/21 22:59 06:59 14:59 Other: # Voids 1 Weight 100.698 kg 100.698 kg - Constitutional General appearance: Present: average body habitus, cooperative, no acute distress - EENT Eyes: Present: anicteric sclerae, EOMI, PERRLA, normal appearance ENT: Present: hearing grossly normal, normal oropharynx Ears: bilateral: normal - Neck Neck: Present: normal ROM. Absent: lymphadenopathy, rigidity, thyromegaly Carotids: negative: bruit present Thyroid: bilateral: normal size, negative: enlarged, nodule - Respiratory Respiratory: bilateral: CTA, negative: rales, rhonchi, wheezing - Cardiovascular Rhythm: regular Heart sounds: normal: S1, S2 Abnormal Heart Sounds: Absent: systolic murmur, diastolic murmur - Gastrointestinal General gastrointestinal: Present: normal bowel sounds, soft. Absent: distended, organomegaly, tenderness - Genitourinary Genitourinary Comment(s): deferred - Integumentary Integumentary: Present: normal turgor. Absent: jaundiced, rash, ulcer - Neurologic Neurologic: Present: CNII-XII intact. Absent: focal deficits - Musculoskeletal Musculoskeletal: Present: gait normal, strength equal bilaterally - Psychiatric Psychiatric: Present: A&O x's 3, appropriate affect, intact judgment & insight Results CBC & Chem 7: 02/10/21 20:22 02/11/21 15:08 Labs: Abnormal Lab Results - Last 24 Hours (Table) 02/10/21 02/10/21 Range/Units 20:22 20:22 Creatinine 1.52 H (0.66-1.25) mg/dL Glucose 110 H (74-99) mg/dL ALT 52 H (4-49) U/L Creatine Kinase 419 H (55-170) U/L Amylase 123 H (30-110) U/L Lipase 356 H (23-300) U/L Urine Protein 1+ H (Negative) Urine Blood Trace H (Negative) Urine WBC 14 H (0-5) /hpf Urine Mucus Rare H (None) /hpf Microbiology - Last 24 Hours (Table) 02/10/21 20:22 Urine Culture - Preliminary Urine,Voided Thrombosis Risk Factor Assmnt - Choose All That Apply Any of the Below Risk Factors Present?: No Other Risk Factors: No Other congenital or acquired thrombophilia - If yes, enter type in comment: No Thrombosis Risk Factor Assessment Level: Very Low Risk Assessment and Plan Assessment: 1. Acute pancreatitis - We will continue with IV fluid hydration; patient reports episode of emesis with clear liquids; we will continue to advance cautiously - Continue with Protonix 40 mg daily; monitor amylase lipase 2. Acute renal injury/dehydration; continue with IV fluid hydration; monitor renal function and electrolytes; monitor strict MARK's, daily weights; avoid nephrotoxins and hypotension 3. Diabetes mellitus; Accu-Cheks every before meals and at bedtime and insulin sliding scale; hold off on oral hypoglycemic agents 4. Hypertension; continue with Ziac 106 0.25 mg daily; lisinopril 10 mg daily 5. Asthma; singular 10 mg daily; continue with home inhaler therapy 6. Hyperlipidemia; Lipitor 40 mg daily 7. Hypothyroidism; levothyroxin 112 MCG daily DVT prophylaxis; SCDs CODE STATUS; full code
[2021-02-12 11:55] LABS: African American GFR (CKD) 74 (>60 ml/min/1.73 sqM); Anion Gap 6 mmol/L; Blood Urea Nitrogen 10 mg/dL (9-20); Calcium 8.5 mg/dL (8.4-10.2); Carbon Dioxide 25 mmol/L (22-30); Chloride 104 mmol/L (98-107); Glucose 154 mg/dL (74-99); Lipase 1633 U/L (23-300); Non-African American GFR(CKD) 64 (>60 ml/min/1.73 sqM); Potassium 3.9 mmol/L (3.5-5.1); Sodium 135 mmol/L (137-145)
[2021-02-12 13:42] LABS: African American GFR (CKD) 68.4 (60.0-200.0); BUN/Creat Ratio 7.86 Ratio (12.00-20.00); Calcium 8.5 mg/dL (8.7-10.3); Potassium 4.1 mmol/L (3.5-5.5)
[2021-02-12] MEDS: ONDANSETRON 4 MG/2 ML VIAL IVP PRN (13:58)
[2021-02-12] MEDS: lisinopriL 10 MG TAB PO SCH (13:59)
[2021-02-12] MEDS: BISOPROLOL-HCTZ 10-6.25 MG 1 EACH TAB PO SCH (13:59)
[2021-02-12] MEDS: SYMBICORT 160-4.5 MCG INHALER INHALATION PRN (20:17)
[2021-02-12 20:29] LABS: Glucose,Whole Blood 120 mg/dL (75-99)
[2021-02-13 05:38] LABS: ALT 36 U/L (4-49); AST 33 U/L (17-59); African American GFR (CKD) 76 (>60 ml/min/1.73 sqM); Albumin 3.1 g/dL (3.5-5.0); Albumin/Globulin Ratio 1.1; Alkaline Phosphatase 70 U/L (38-126); Amylase 112 U/L (30-110); Anion Gap 4 mmol/L; Bilirubin,Unconjugated 0.3 mg/dL (0.0-1.1); Blood Urea Nitrogen 7 mg/dL (9-20); Calcium 8.4 mg/dL (8.4-10.2); Carbon Dioxide 26 mmol/L (22-30); Chloride 107 mmol/L (98-107); Globulin 2.9 g/dL; Glucose 102 mg/dL (74-99); Lipase 508 U/L (23-300); Non-African American GFR(CKD) 66 (>60 ml/min/1.73 sqM); Potassium 3.8 mmol/L (3.5-5.1); Sodium 137 mmol/L (137-145); Total Bilirubin 0.3 mg/dL (0.2-1.3)
[2021-02-13] MEDS: SODIUM CHLORIDE 0.9% 1,000 ML IV SCH (05:47)
[2021-02-13] MEDS: LEVOTHYROXINE 112 MCG TAB PO SCH (06:36)
[2021-02-13 07:15] VITALS: BP 108/66; PULSE 54; RESP 14; TEMP 97.4
[2021-02-13] MEDS: lisinopriL 10 MG TAB PO SCH (07:57)
[2021-02-13] MEDS: BISOPROLOL-HCTZ 10-6.25 MG 1 EACH TAB PO SCH (07:57)
[2021-02-13] MEDS: MONTELUKAST 10 MG TAB PO SCH (07:57)
[2021-02-13 08:52] LABS: Basophils # (A) 0.05 X 10*3/uL (0.00-0.10); Basophils % (A) 0.7 %; Eosinophils # (A) 0.42 X 10*3/uL (0.04-0.35); Eosinophils % (A) 6.3 %; HCT 37.3 % (39.6-50.0); HGB 12.8 g/dL (13.0-17.0); Lymphocytes # (A) 2.93 X 10*3/uL (0.90-5.00); Lymphocytes % (A) 43.9 %; MCH 30.1 pg (27.0-32.0); MCHC 34.3 g/dL (32.0-37.0); MCV 87.8 fL (80.0-97.0); Mean Platelet Volume 10.4 fL (9.5-12.2); Monocytes # (A) 0.61 X 10*3/uL (0.20-1.00); Monocytes % (A) 9.1 %; Neutrophils # (A) 2.65 X 10*3/uL (1.80-7.70); Neutrophils % (A) 39.9 %; Platelet Count 260 X 10*3/uL (140-440); RBC 4.25 X 10*6/uL (4.40-5.60); WBC 6.67 X 10*3/uL (4.50-10.00)
--- NOTE | 2021-02-13 10:29 | P.PN ---
Subjective Progress Note Date: 02/12/21 42-year-old male history diabetes, hypertension, asthma, who states he was feeling well until last evening when he started developing some nonspecific abdominal discomfort he later developed some nausea with dry heaves he fell he was constipated cardiac bowel movements and didn't pass much. He states he later vomited up what appear to be a meal from a couple days ago. On further questioning states he is not passing gas. He's had some chills no fevers no sweats some other symptoms reported at this time. No prior abdominal surgeries. Blood work in ED reveals elevated amylase and lipase of 123, 356 respectively, B UN/creatinine at 13/1.52, CBC reveals WBC 9.8, hemoglobin 15.6 and platelet count of 294 Patient is being admitted to the hospital for acute pancreatitis, acute renal injury and dehydration Patient is seen and evaluated at bedside; continues to have episodes of vomiting and abdominal pain even with clear liquids; vital signs remained stable; labs reviewed with patient; lipase trended up to 1633; CT abdomen completed in ED reveals no significant abnormality in liver/gallbladder/pancreas; elevated lipase possibly related to vomiting; we will continue with IV fluids and continue monitor pancreatic enzymes; plan to consult GI if amylase lipase remain elevated Objective - Vital Signs Vital signs: Vital Signs Temp 98.4 F 02/12/21 07:00 Pulse 66 02/12/21 13:29 Resp 18 02/12/21 13:29 BP 108/55 02/12/21 09:56 Pulse Ox 97 02/12/21 07:00 Intake & Output 02/11/21 02/12/21 02/12/21 18:59 06:59 18:59 Intake Total 1000 Balance 1000 Weight 100.698 kg Intake: Oral 1000 Other: Voiding Method Toilet # Voids 1 2 2 - Exam - Constitutional General appearance: Present: average body habitus, cooperative, no acute dist ress - EENT Eyes: Present: anicteric sclerae, EOMI, PERRLA, normal appearance ENT: Present: hearing grossly normal, normal oropharynx Ears: bilateral: normal - Neck Neck: Present: normal ROM. Absent: lymphadenopathy, rigidity, thyromegaly Carotids: negative: bruit present Thyroid: bilateral: normal size, negative: enlarged, nodule - Respiratory Respiratory: bilateral: CTA, negative: rales, rhonchi, wheezing - Cardiovascular Rhythm: regular Heart sounds: normal: S1, S2 Abnormal Heart Sounds: Absent: systolic murmur, diastolic murmur - Gastrointestinal General gastrointestinal: Present: normal bowel sounds, soft. Absent: distended, organomegaly, tenderness - Genitourinary Genitourinary Comment(s): deferred - Integumentary Integumentary: Present: normal turgor. Absent: jaundiced, rash, ulcer - Neurologic Neurologic: Present: CNII-XII intact. Absent: focal deficits - Musculoskeletal Musculoskeletal: Present: gait normal, strength equal bilaterally - Psychiatric Psychiatric: Present: A&O x's 3, appropriate affect, intact judgment & insight - Labs CBC & Chem 7: 02/13/21 04:12 02/13/21 04:12 Labs: Abnormal Lab Results - Last 24 Hours (Table) 02/11/21 02/12/21 02/12/21 Range/Units 15:08 06:17 11:15 Sodium 136 L 135 L (137-145) mmol/L Creatinine 1.40 H 1.31 H (0.66-1.25) mg/dL Est GFR (CKD-EPI)NonAf 59.0 L (60.0-200.0) BUN/Creatinine Ratio 7.86 L (12.00-20.00) Ratio Glucose 152 H 154 H (74-99) mg/dL Calcium 8.5 L (8.7-10.3) mg/dL Creatine Kinase 349 H (55-170) U/L Lipase 1633 H (23-300) U/L Microbiology - Last 24 Hours (Table) 02/10/21 20:22 Urine Culture - Final Urine,Voided Assessment and Plan Assessment: 1. Acute pancreatitis - We will continue with IV fluid hydration; patient reports episode of emesis with clear liquids; we will continue to advance cautiously - Continue with Protonix 40 mg daily; monitor amylase lipase 2. Acute renal injury/dehydration; continue with IV fluid hydration; monitor renal function and electrolytes; monitor strict MARK's, daily weights; avoid nephrotoxins and hypotension 3. Diabetes mellitus; Accu-Cheks every before meals and at bedtime and insulin sliding scale; hold off on oral hypoglycemic agents 4. Hypertension; continue with Ziac 106 0.25 mg daily; lisinopril 10 mg daily 5. Asthma; singular 10 mg daily; continue with home inhaler therapy 6. Hyperlipidemia; Lipitor 40 mg daily 7. Hypothyroidism; levothyroxin 112 MCG daily DVT prophylaxis; SCDs CODE STATUS; full code
[2021-02-13] MEDS: HYDROcodone/APAP 10-325MG 1 EACH TAB PO PRN (14:07)
--- NOTE | 2021-02-13 19:04 | P.DS ---
Providers Date of admission: 02/10/21 23:01 Expected date of discharge: 02/13/21 Attending physician: Dom Casas MD Primary care physician: [facility] Course: 42-year-old male history diabetes, hypertension, asthma, who states he was feeling well until last evening when he started developing some nonspecific abdominal discomfort he later developed some nausea with dry heaves he fell he was constipated cardiac bowel movements and didn't pass much. He states he later vomited up what appear to be a meal from a couple days ago. On further questioning states he is not passing gas. He's had some chills no fevers no sweats some other symptoms reported at this time. No prior abdominal surgeries. Blood work in ED reveals elevated amylase and lipase of 123, 356 respectively, B UN/creatinine at 13/1.52, CBC reveals WBC 9.8, hemoglobin 15.6 and platelet count of 294 Patient is being admitted to the hospital for acute pancreatitis, acute renal injury and dehydration Patient is seen and evaluated at bedside; continues to have episodes of vomiting and abdominal pain even with clear liquids; vital signs remained stable; labs reviewed with patient; lipase trended up to 1633; CT abdomen completed in ED reveals no significant abnormality in liver/gallbladder/pancreas; elevated lipase possibly related to vomiting; we will continue with IV fluids and continue monitor pancreatic enzymes; plan to consult GI if amylase lipase remain elevated Patient's symptoms removed markedly with above management; repeat amylase and lipase were ordered and they trended down; patient didn't have any further abdominal pain; he was recommended outpatient follow-up with GI Patient Condition at Discharge: Fair Plan - Discharge Summary Discharge Rx Participant: Yes New Discharge Prescriptions: Continue Levothyroxine Sodium [Synthroid] 112 mcg PO DAILY HYDROcodone/APAP 10-325MG [[place] 10-325] 1 tab PO QID PRN PRN Reason: Pain Cetirizine HCl [Zyrtec] 10 mg PO BID PRN PRN Reason: Allergic Reaction Montelukast [Singulair] 10 mg PO DAILY Bisoprolol-Hctz 10-6.25 mg [Ziac 10-6.25 MG] 1 tab PO DAILY lisinopriL [Zestril] 5 mg PO DAILY Liraglutide [Victoza 3-Eliu] 1.8 mg SQ DAILY Omeprazole [PriLOSEC] 40 mg PO DAILY metFORMIN HCL ER [Glucophage XR] 500 mg PO BID Atorvastatin Calcium [Lipitor] 40 mg PO DAILY Sildenafil Citrate [Viagra] 100 mg PO DAILY PRN PRN Reason: E.D. Repaglinide [Prandin] 1 mg PO AC-TID methocarbamoL [Methocarbamol] 500 mg PO DAILY PRN PRN Reason: Muscle Pain Discharge Medication List Cetirizine HCl [Zyrtec] 10 mg PO BID PRN 06/18/17 [History] HYDROcodone/APAP 10-325MG [[place] 10-325] 1 tab PO QID PRN 06/18/17 [History] Levothyroxine Sodium [Synthroid] 112 mcg PO DAILY 06/18/17 [History] Montelukast [Singulair] 10 mg PO DAILY 06/18/17 [History] Bisoprolol-Hctz 10-6.25 mg [Ziac 10-6.25 MG] 1 tab PO DAILY 11/05/18 [History] lisinopriL [Zestril] 5 mg PO DAILY 04/27/20 [History] Liraglutide [Victoza 3-Eliu] 1.8 mg SQ DAILY 02/07/21 [History] Atorvastatin Calcium [Lipitor] 40 mg PO DAILY 02/10/21 [History] Omeprazole [PriLOSEC] 40 mg PO DAILY 02/10/21 [History] Repaglinide [Prandin] 1 mg PO AC-TID 02/10/21 [History] Sildenafil Citrate [Viagra] 100 mg PO DAILY PRN 02/10/21 [History] metFORMIN HCL ER [Glucophage XR] 500 mg PO BID 02/10/21 [History] methocarbamoL [Methocarbamol] 500 mg PO DAILY PRN 02/10/21 [History] Follow up Appointment(s)/Referral(s): Jimena Arevalo DO [Primary Care Provider] - 1-2 days Buffy Arreaga MD [STAFF PHYSICIAN] - 1 Week Discharge Disposition: HOME SELF-CARE
== END 2021-02-13 16:21 | disposition home or self-care (01) ==
LOC: EC 16:52 → 6NMEDSUR 23:01
PROVIDERS: ADMIT Internal Medicine; ATTEND Internal Medicine
DX: K85.90 Acute pancreatitis without necrosis or infection, unspecified (principal); N17.9 Acute kidney failure, unspecified; E86.0 Dehydration; E11.9 Type 2 diabetes mellitus without complications; I10 Essential (primary) hypertension; J45.909 Unspecified asthma, uncomplicated; E78.5 Hyperlipidemia, unspecified; E03.9 Hypothyroidism, unspecified; G47.30 Sleep apnea, unspecified; M51.9 Unspecified thoracic, thoracolumbar and lumbosacral intervertebral disc disorder; G89.29 Other chronic pain; M54.9 Dorsalgia, unspecified; Z79.890 Hormone replacement therapy; Z79.899 Other long term (current) drug therapy; Z79.84 Long term (current) use of oral hypoglycemic drugs; Z91.018 Allergy to other foods; Z87.01 Personal history of pneumonia (recurrent); Z86.69 Personal history of other diseases of the nervous system and sense organs
CPT/HCPCS: 99285; 96376 ×2; 96375; 96361 ×2; 96374; 36415; 94640 ×2; 80053; 80048 ×3; 80076; 82150 ×2; 82550 ×2; 83605; 83690 ×4; 84484; 85025 ×2; 81001; 87086; 74018; 74177; G0378 ×4; J2405 ×2; J1885; Q9967; 96366; 96372

== ENCOUNTER → 2021-03-07 | Outpatient (CLI) | payer OTHER ==
--- NOTE | 2021-03-07 15:35 | NM ---
EXAMINATION TYPE: NM hepatobiliary w EF DATE OF EXAM: 03/07/2021 COMPARISON: NONE INDICATION: Gastroparesis TECHNIQUE: After the intravenous administration of 4.21 mCi Tc 99m Mebrofenin hepatobiliary scintigra phy is performed. Images were obtained immediately post injection. FINDINGS: There is prompt uptake and excretion of radiotracer by the liver. Extrahepatic ducts are identified at 4 minutes. The gallbladder is visualized within 6 minutes. Small bowel activity is noted within 52 minutes. At one hour 8 ounces of oral ensure plus is given to mimic CCK and gallbladder ejection fraction is c alculated at 9.5 %, which is low. (Normal >35% and <80%.). IMPRESSION: 1. Biliary hypokinesia.
== END | disposition home or self-care (01) ==
LOC: RADNMMAIN 13:00
PROVIDERS: ATTEND Family Medicine
DX: K83.8 Other specified diseases of biliary tract (principal)
CPT/HCPCS: 78226; A9537

== ENCOUNTER → 2021-03-15 | Day surgery (SDC) | payer OTHER ==
[2021-03-14 13:24] VITALS: BMI 32.2
[~2021-03-15] MED LIST changes: +IOPAMIDOL M200 10 ML VIAL ONE; +LACTATED RINGERS 1,000 ML IV ONE; +MIDAZOLAM 2 MG/2 ML VIAL ONE; +[UNRECOGNIZED DRUG - REMARK] IV ONE; +fentaNYL (PF) 50 MCG/ML 2 ML AMP ONE; +methylPREDNISolone ACETATE 80 MG/ML 1 ML VIAL ONE
[2021-03-15 11:40] VITALS: RESP 16; TEMP 97.2
[2021-03-15 11:50] LABS: Glucose,Whole Blood 179 mg/dL (75-99)
--- NOTE | 2021-03-15 12:59 | P.PCN ---
Date of Procedure: 03/15/21 Description of Procedure: Procedure: 1 L4-L5 Epidural steroid injection under fluoroscopic guidance, #1 out of 3 2. Lumbar epidurogram PREOPERATIVE DIAGNOSIS: Lumbar degenerative disc disease, and Lumbar radiculopathy. POSTOPERATIVE DIAGNOSIS: Lumbar degenerative disc disease, and Lumbar radiculop athy. SURGEON: Jacquelyn Morales ANESTHESIA: Local with 1% lidocaine, and IV sedation: Versed, and fentanyl EBL: None. Specimen removed: None Fluoroscopic image: saved to electronic medical records PROCEDURE INDICATION: The patient had history of Lumbar degenerative disc disease and Lumbar radiculopathy. Failed to conservative therapy. Presented for epidural steroid injection. PROCEDURE DESCRIPTION: The patient was seen and identified in the preoperative area. Risks, benefits, complications, and alternatives were discussed with the patient. The patient agreed to proceed with the procedure and signed the consent. IV was started, and vital signs were stable. Patient was taken to the procedure area, and time out was completed. The patient was placed in the prone position on procedure table and a pillow was placed under the abdomen to reduce lumbar lordosis. The lumbosacral area was prepped and draped in the usual sterile fashion. Critical pause was taken. Vital signs were closely monitored during the procedure. Using anterior-posterior fluoroscopy, the L4-L5 interlaminar space was identified, and skin and deeper tissues were localized with 1% lidocaine. Using anterior-posterior fluoroscopy, lateral fluoroscopy, and [id number] technique, a 20 gauge 3.5 Tuohy epidural needle entered the epidural space. After negative aspiration of CSF and blood with no paresthesias, 2 ml of [id number] contrast dye was injected and an excellent epidurogram was seen. Again after negative aspiration of CSF and blood with no paresthesias, 10 mL of block solution was injected into the epidural space. Block solution contained 40 mg of Depo-Medrol, and 9 mL of preservative-free normal saline. Needle was withdrawn intact, skin was cleansed, and bandages were applied. COMPLICATIONS: None. DISPOSITION / PLANS: The patient was placed in a supine position and transferred to the recovery area in a stable condition for observation. Patient was discharged from the recovery room after meeting discharge criteria. Home discharge instructions given to the patient by the staff. The patient was reexamined prior to discharge. The patient will schedule a follow up in the clinic in 4 weeks.
[2021-03-15 13:20] VITALS: BP 125/78; PULSE 70
--- NOTE | 2021-03-15 13:51 | FL ---
EXAMINATION TYPE: FL guided pain mgmt statistic DATE OF EXAM: 03/15/2021 CLINICAL HISTORY: Low back pain. TECHNIQUE: Fluoroscopy. COMPARISON: None. FINDINGS: Fluoroscopic guidance was provided during pain relief procedure performed by Dr. Morales . A total of 11 seconds of fluoroscopic time was utilized during the procedure and two spot images ar e acquired. Images acquired shows needle localization at superior L5 level off the midline. IMPRESSION: As Above.
== END ==
LOC: ORPAIN 10:48
DX: M51.16 Intervertebral disc disorders with radiculopathy, lumbar region (principal)
CPT/HCPCS: 62323; J2250; J1040; J3010; Q9966; 99152

== ENCOUNTER 2021-04-05 08:27 | Day surgery (SDC) | payer OTHER ==
[2021-04-04 09:21] VITALS: BMI 31.4
[~2021-04-05 08:27] MED LIST changes: +ACETAMINOPHEN TAB 500 MG TAB PO PRN; +DEXAMETHASONE SOD PHOSPHATE 4 MG/ML 1 ML VIAL IV ONE; +HEPARIN SODIUM,PORCINE/PF 5,000 UNIT/0.5 ML SYRINGE SQ PRN; +HYDROmorphone 0.5 MG/0.5 ML SYRINGE IVP PRN; -IOPAMIDOL M200 10 ML VIAL ONE; -LACTATED RINGERS 1,000 ML IV ONE; -LACTATED RINGERS 1,000 ML IV SCH; +LIDOCAINE 1% (10MG/ML) FOR IV START INTRADERMA PRN; -MIDAZOLAM 2 MG/2 ML VIAL ONE; +ONDANSETRON 4 MG/2 ML VIAL IVP ONE; -[UNRECOGNIZED DRUG - REMARK] IV ONE; -fentaNYL (PF) 50 MCG/ML 2 ML AMP ONE; -methylPREDNISolone ACETATE 80 MG/ML 1 ML VIAL ONE
[2021-04-05] MEDS: LACTATED RINGERS 1,000 ML IV SCH ×2 (09:03→10:24)
[2021-04-05 09:09] LABS: Glucose,Whole Blood 136 mg/dL (75-99)
--- NOTE | 2021-04-05 10:03 | P.GSHP ---
History of Present Illness H&P Date: 04/05/21 Chief Complaint: Right upper quadrant pain This 51-year-old male with complaints of right quadrant pain. Patient's recent HIDA scan shows a diminished ejection fraction of 9.5% consistent with dyskinesia. She presents today for laparoscopic cholecystectomy. Past Medical History Past Medical History: Asthma, Diabetes Mellitus, Hypertension, Musculoskeletal Disorder, Pneumonia, Sleep Apnea/CPAP/BIPAP, Thyroid Disorder Additional Past Medical History / Comment(s): Hx Pneumonia, chronic migraines, used to use CPAP, Degenerative Disc Disease. Chronic back pain. History of Any Multi-Drug Resistant Organisms: None Reported Past Surgical History: Orthopedic Surgery Additional Past Surgical History / Comment(s): Bilateral knee arthroscopy knee, spinal tap, pain procedure Past Anesthesia/Blood Transfusion Reactions: No Reported Reaction Smoking Status: Never smoker - Past Family History Mother Family Medical History: No Reported History, Hypertension Medications and Allergies Home Medications Medication Instructions Recorded Confirmed Type Cetirizine HCl [Zyrtec] 10 mg PO BID PRN 06/18/17 04/05/21 History HYDROcodone/APAP 10-325MG [[place] 1 tab PO QID PRN 06/18/17 04/05/21 History 10-325] Levothyroxine Sodium [Synthroid] 112 mcg PO DAILY 06/18/17 04/05/21 History Montelukast [Singulair] 10 mg PO DAILY 06/18/17 04/05/21 History Bisoprolol-Hctz 10-6.25 mg [Ziac 1 tab PO DAILY 11/05/18 04/05/21 History 10-6.25 MG] lisinopriL [Zestril] 5 mg PO DAILY 04/27/20 04/05/21 History Liraglutide [Victoza 3-Eliu] 1.8 mg SQ DAILY 02/07/21 04/05/21 History Omeprazole [PriLOSEC] 40 mg PO DAILY 02/10/21 04/05/21 History Repaglinide [Prandin] 1 mg PO AC-TID 02/10/21 04/05/21 History Sildenafil Citrate [Viagra] 100 mg PO DAILY PRN 02/10/21 04/05/21 History methocarbamoL [Methocarbamol] 500 mg PO DAILY PRN 02/10/21 04/05/21 History Butalb/APAP/Caff 50-325-40Mg 1 tab PO Q4H PRN 04/04/21 04/05/21 History [Fioricet 50-325-40] Allergies Allergy/AdvReac Type Severity Reaction Status Date / Time Pork/Porcine Containing Allergy Nausea & Verified 04/05/21 08:42 Products Vomiting & [Pork] Diarrhea Surgical - Exam Vital Signs Temp Pulse Resp BP Pulse Ox 98.0 F 72 16 129/88 98 04/05/21 08:53 04/05/21 08:53 04/05/21 08:53 04/05/21 08:53 04/05/21 08:53 - General well developed, well nourished, no distress - Eyes PERRL - ENT normal pinna - Neck no masses - Respiratory normal expansion - Cardiovascular Rhythm: regular - Abdomen Abdomen: soft, non tender Results - Labs Abnormal Lab Results - Last 24 Hours (Table) 04/05/21 Range/Units 08:59 POC Glucose (mg/dL) 136 H (75-99) mg/dL Assessment and Plan Assessment: Biliary dyskinesia Chronic cholecystitis We'll perform laparoscopic cholecystectomy
[2021-04-05] MEDS ORDERED: LIDOCAINE 1% INJ 10MG/ML (20 ML MDV) ONE (10:24)
[2021-04-05] MEDS ORDERED: MIDAZOLAM 2 MG/2 ML VIAL ONE (10:24)
[2021-04-05] MEDS ORDERED: ROCURONIUM 10 MG/ML (5 ML VIAL) IV ONE (10:24)
[2021-04-05] MEDS ORDERED: NEOSTIGMINE 1 MG/ML 10 ML VIAL ONE (10:24)
[2021-04-05] MEDS ORDERED: SUCCINYLCHOLINE CHLORIDE 100 MG/5 ML SYR IV ONE (10:24)
[2021-04-05] MEDS ORDERED: PHENYLEPHRINE-0.9% NACL SYG 1,000 MCG/10 ML SYRINGE ONE (10:24)
[2021-04-05] MEDS ORDERED: GLYCOPYRROLATE 0.2 MG/ML 2 ML VIAL ONE (10:24)
[2021-04-05] MEDS ORDERED: SUGAMMADEX SODIUM 500 MG/5 ML SDV IV ONE (10:24)
[2021-04-05] MEDS ORDERED: PROPOFOL 10 MG/ML 20 ML VIAL IV ONE (10:24)
[2021-04-05] MEDS ORDERED: fentaNYL (PF) 50 MCG/ML 2 ML AMP ONE (10:24)
[2021-04-05] MEDS ORDERED: BUPIVACAINE (PF) 0.5% 30 ML VIAL SQ ONE (10:58)
[2021-04-05] MEDS ORDERED: LACTATED RINGERS 1,000 ML IV ONE (11:10)
--- NOTE | 2021-04-05 11:12 | P.OP ---
Date of Procedure: 04/05/21 Preoperative Diagnosis: Chronic cholecystitis Postoperative Diagnosis: Chronic cholecystitis Procedure(s) Performed: Laparoscopic cholecystectomy Anesthesia: AMY Surgeon: Slim Delatorre Estimated Blood Loss (ml): 5 Pathology: other (Gallbladder) Condition: stable Disposition: PACU Description of Procedure: The patient was placed on the operating table. The patient received a general endotracheal tube anesthesia. The patients abdomen was prepped and draped in the usual sterile fashion. Through an infraumbilical stab incision, the fascia of the anterior abdominal wall was grasped with a pair of Kochers and then the Veress needle was placed in the peritoneal cavity. Position of the Veress needle was confirmed with positive drop test. The abdomen was then insufflated. After adequate insufflation, the 10 mm trocar was placed in the peritoneal cavity. Following this the laparoscope was placed in the peritoneal cavity. The patient was placed in the head-up, right side up position and then a 5 mm trocar was placed in the right lateral and right subcostal position under direct visualization. A 8 mm trocar was placed in the epigastric position. The gallbladder was grasped in the fundus and infundibulum. Traction on the gallbladder was placed in the lateral and the cephalad positions. The triangle of Calot was visualized.. The cystic duct was bluntly dissected until the union of the cystic duct and common bile duct was seen. A critical view of safety was achieved. The cystic duct was then divided and sealed with the Harmonic scissors. A PDS Endoloop was then placed throughout the cystic duct stump. The cystic artery divided and sealed with the Harmonic scissors. The gallbladder was then removed from the liver bed using Harmonic scissors. The gallbladder was then extracted through the epigastric port site. Operative field was checked for any bleeding spots and Harmonic scissors was used to coagulate the liver bed. The abdomen was irrigated. The trocars were removed. The skin was closed using interrupted 3-0 Vicryl suture. Dermabond dressing were applied. The patient tolerated the procedure well.
[2021-04-05 11:49] VITALS: TEMP 97.2
[2021-04-05] MEDS ORDERED: KETOROLAC 15 MG/ML 1 ML VIAL ONE (11:51)
[2021-04-05] MEDS ORDERED: KETOROLAC 15 MG/ML 1 ML VIAL IVP ONE (11:54)
[2021-04-05] MEDS ORDERED: ONDANSETRON 4 MG/2 ML VIAL IVP ONE ×2 (12:14→12:16)
[2021-04-05] MEDS ORDERED: ONDANSETRON 4 MG/2 ML VIAL ONE (12:17)
[2021-04-05 12:50] VITALS: RESP 18
[2021-04-05 13:20] VITALS: BP 125/83; PULSE 65
== END 2021-04-05 14:05 | disposition home or self-care (01) ==
LOC: OR 08:27
PROVIDERS: ATTEND Surgery
DX: K81.1 Chronic cholecystitis (principal); J45.909 Unspecified asthma, uncomplicated; E11.9 Type 2 diabetes mellitus without complications; I10 Essential (primary) hypertension; Z87.01 Personal history of pneumonia (recurrent); G47.30 Sleep apnea, unspecified; E78.5 Hyperlipidemia, unspecified; G43.909 Migraine, unspecified, not intractable, without status migrainosus; G89.29 Other chronic pain; M54.9 Dorsalgia, unspecified; Z98.890 Other specified postprocedural states; Z82.49 Family history of ischemic heart disease and other diseases of the circulatory system; Z79.84 Long term (current) use of oral hypoglycemic drugs; Z79.890 Hormone replacement therapy; Z79.899 Other long term (current) drug therapy; Z91.018 Allergy to other foods
CPT/HCPCS: 47562; J2250; J1100; J2710; J0690; J2405; J2001; J3010; J1885; J2370; J0330; J2704; J1170; J1644

== ENCOUNTER → 2021-04-13 | Outpatient (CLI) | payer OTHER ==
[2021-04-13 14:14] VITALS: BP 155/86; PULSE 67; RESP 18
--- NOTE | 2021-04-13 15:27 | P.PN ---
Subjective Progress Note Date: 04/13/21 Mr. Stratton is a 51-year-old male presenting to clinic today for follow-up appointment after his lumbar epidural steroid injection on March 17. Has a history of lumbar radiculopathy, lumbar spondylosis and facet arthropathy without myelopathy. He is one week status post cholecystectomy and is doing well with his recovery. He reports that he had very good relief with the initial injection more than 70%. However the pain is beginning to return. He states the pain is in the middle portion of his lower back radiating down his bilateral hips to feet. At worst its a 7 out of 10. On average it said to 3 out of 10. Pain is worse with certain positions and sitting. Pain is better in [place] positions in [place]. He currently uses marijuana for his pain control. He denies any saddle anesthesia, bowel or bladder dysfunction, or any other red flag symptoms. Objective - Vital Signs Vital signs: Intake & Output 04/12/21 04/13/21 04/13/21 18:59 06:59 18:59 Weight 93.894 kg - Exam Physical Examinations : -Constitutiona : Cooperative , not in acute distress . -HEENT : nech : supple , no Lymphadenopathy , normal thyroid size . : eyes : no ptosis , no icterus, no photophobia . - neurologic : Cranial nerve II to XII intact , no focal neurological deffecit . -psychatric : alert , oriented X 3 , appropriate affect , intact judgment and insight . -Lymphatic : no Lymphadenopathy . - musculoskeltal : Lumber spine moter stegnth lower extremities ,thigh and legs 5/5 Right side , 5/5 Left side deep tendon reflexes : normal Knee Jerk , normal ankle Jerk lumber facet Loading Test =positive Right , positive Left Range of motion of the lumbar spine Flexion 30 degrees, extension 10 degrees strait leg raising test = positive at 20 degree Assessment and Plan Assessment: Assessment and plan=1-lumbar degenerative disc disease 2-Lumbar spondylosis with lumbar facet arthropathy without myelopathy. 3-Thoracic degenerative disc disease. 4-myofascial pain syndrome thoracic and lumbar area. he could benefit from lumbar epidural steroid injections under fluoroscopy guidance at L4 5. He should continue his current medications Flexeril 5 mg twice a day and [place] 10/325 as prescribed by his primary care Patient is one week status post cholecystectomy. Scheduled injection after clearance from surgeon - PQRS measures = - Patient's medications are documented in the chart. -Tobacco use is negative -Patient's has not received pneumococcal vaccine. -Advanced care planning discussed, patient not eligible. -Opiate contract not signed. -Pain positive and follow-up visit/procedure is scheduled. -Patient's blood pressure measured 155/86 , and documented in the record ,and patient will follow up with the primary care. -Patient was not identified as an unhealthy alcohol user Time with Patient: Less than 30
== END ==
LOC: PNWHC3 13:29
PROVIDERS: ATTEND Student in an Organized Health Care Education/Training Program
DX: M51.36 Other intervertebral disc degeneration, lumbar region (principal); M47.816 Spondylosis without myelopathy or radiculopathy, lumbar region; M51.34 Other intervertebral disc degeneration, thoracic region; M79.18 Myalgia, other site; Z91.018 Allergy to other foods
CPT/HCPCS: 99211

== ENCOUNTER 2021-05-24 09:28 | Day surgery (SDC) | payer OTHER ==
[2021-05-23 13:15] VITALS: BMI 30.9
[~2021-05-24 09:28] MED LIST changes: -ACETAMINOPHEN TAB 500 MG TAB PO PRN; -DEXAMETHASONE SOD PHOSPHATE 4 MG/ML 1 ML VIAL IV ONE; -HEPARIN SODIUM,PORCINE/PF 5,000 UNIT/0.5 ML SYRINGE SQ PRN; -HYDROmorphone 0.5 MG/0.5 ML SYRINGE IVP PRN; +LACTATED RINGERS 1,000 ML IV SCH; -LIDOCAINE 1% (10MG/ML) FOR IV START INTRADERMA PRN; -ONDANSETRON 4 MG/2 ML VIAL IVP ONE
[2021-05-24] MEDS ORDERED: ROPIVACAINE 5MG/ML 20ML VIAL ONE (09:58)
[2021-05-24] MEDS ORDERED: .fentaNYL (PF) 50 MCG/ML 2 ML AMP ONE (09:58)
[2021-05-24] MEDS ORDERED: TRIAMCINOLONE ACETONIDE 40 MG/ML 1 ML VIAL ONE (09:58)
[2021-05-24] MEDS ORDERED: MIDAZOLAM 2 MG/2 ML VIAL ONE (09:58)
[2021-05-24] MEDS ORDERED: IOPAMIDOL M200 10 ML VIAL ONE (09:58)
[2021-05-24 10:01] LABS: Glucose,Whole Blood 155 mg/dL (75-99)
[2021-05-24 10:02] VITALS: TEMP 97.2
--- NOTE | 2021-05-24 10:12 | P.PCN ---
Date of Procedure: 05/24/21 Surgeon: Margret Hinds Condition: stable Disposition: PACU Description of Procedure: PREOPERATIVE DIAGNOSIS: 1-Lumbar radiculopathy 2- Lumber Degenerative Disc Diseases. POSTOPERATIVE DIAGNOSIS: 1-Lumbar radiculopathy. 2-Lumbar Degenerative Disc Diseases PROCEDURE 1. Lumbar epidural steroid injection under fluoroscopic guidance at the L3-4 level in the left paramedian approach. 2. Lumbar epidurogram. ANESTHESIA: Local with 1% lidocaine; and IV moderate conscious sedation with Versed and fentanyl EBL: Minimal PROCEDURE INDICATION: The patient with low back pain and radiculitis symptoms unresponsive to conservative treatment. Fluoroscopy was used to optimize visualization of the needle placement and to maximize safety. PROCEDURE DESCRIPTION / TECHNIQUE: The patient was seen and identified in the preoperative area. Risks, benefits, complications including but not limited to infections ,bleeding ,allergic reaction to the medications ,nerve damage and not complete pain relief , and alternatives were discussed with the patient. The patient agreed to proceed with the procedure and signed the consent. IV was started, and vital signs were stable. Patient was taken to the OR and time out was completed. The patient was placed in the prone position on procedure table and a pillow was placed under the abdomen to reduce lumbar lordosis. The lumbosacral area was prepped and draped in the usual sterile fashion with ChloraPrep.Patient was closely monitored during the procedure. Conscious sedation was used during the procedure to decrease patients anxiety. Vital signs were monitered during the entire procedure. Using anterior-posterior fluoroscopy, the L3-4 interlaminar space was identified and the skin over this site was marked and then infiltrated with 1% lidocaine subcutaneously. Subsequently, a 20-gauge Tuohy epidural needle was inserted and advanced toward the epidural space using the Loss of resistance to air technique and guided by AP and lateral fluoroscopy. The correct needle position in the epidural space was verified with the injection of 1 mL of the water soluble contrast dye Omnipaque 180 contrast and observing an excellent epidurogram with the epidural spread of the dye, after negative aspiration for blood and CSF and in the absence of paresthesias. Again after negative aspiration, a 7 ml mixture containing 40 mg of Kenalog and 4 ml of preservative free Normal Saline, and 2 ml of preservative free Roppivacaine 0.5% solution was injected and a washout of epidurogram was seen. Needle was withdrawn intact, skin was cleansed, and bandages were applied. patient tolerated procedure well and was transferred to PACU in stable condition.A copy of the needle placement picture was saved to the fluoroscopy machine. COMPLICATIONS: None DISPOSITION / PLANS: The patient was placed in a supine position and transferred to the recovery area in a stable condition for observation. There was no evidence of lower extremity motor or sensory deficit after the procedure. Patient was discharged from the recovery room after meeting discharge criteria. Home discharge instructions were given to the patient by the staff. The patient was reexamined prior to discharge. The patient will schedule a follow up in the clinic in 2-4 weeks.
[2021-05-24] MEDS ORDERED: IV FLUID CONTINUATION 1,000 ML IV ONE (10:16)
[2021-05-24 10:18] VITALS: PULSE 74; RESP 18
[2021-05-24 10:33] VITALS: BP 120/74
--- NOTE | 2021-05-24 11:24 | FL ---
Fluoroscopy HISTORY: Pain 3 seconds fluoroscopy time supplied to the referring clinician. 2 intraoperative C-arm images docume nt the procedure. See dictated report from anesthesia.
== END 2021-05-24 10:56 | disposition home or self-care (01) ==
LOC: ORPAIN 09:28
PROVIDERS: ATTEND Anesthesiology
DX: M54.16 Radiculopathy, lumbar region (principal); M51.36 Other intervertebral disc degeneration, lumbar region
CPT/HCPCS: 62323; J2250; J3301; J3010; Q9966; J2795; 99152

== ENCOUNTER → 2021-07-28 | Outpatient (CLI) | payer OTHER ==
[2021-07-28 14:00] VITALS: BP 123/73; PULSE 66; RESP 18; TEMP 98.6
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
== END ==
LOC: PNWHC3 13:20
PROVIDERS: ATTEND Physician Assistant Medical
DX: G89.29 Other chronic pain (principal); M51.36 Other intervertebral disc degeneration, lumbar region; M51.26 Other intervertebral disc displacement, lumbar region; M48.061 Spinal stenosis, lumbar region without neurogenic claudication; Z91.014 Allergy to mammalian meats
CPT/HCPCS: 99211

== ENCOUNTER 2021-08-30 12:37 | Day surgery (SDC) | payer OTHER ==
[2021-08-29 09:21] VITALS: BMI 31.8
[~2021-08-30 12:37] MED LIST changes: +LIDOCAINE 1% (10MG/ML) FOR IV START INTRADERMA PRN
[2021-08-30 13:12] VITALS: TEMP 98.4
[2021-08-30 13:18] LABS: Glucose,Whole Blood 132 mg/dL (75-99)
[2021-08-30] MEDS ORDERED: ROPIVACAINE 5MG/ML 20ML VIAL ONE (13:19)
[2021-08-30] MEDS ORDERED: TRIAMCINOLONE ACETONIDE 40 MG/ML 1 ML VIAL ONE (13:19)
[2021-08-30] MEDS ORDERED: fentaNYL (PF) 50 MCG/ML 2 ML AMP ONE (13:19)
[2021-08-30] MEDS ORDERED: MIDAZOLAM 2 MG/2 ML VIAL ONE (13:19)
[2021-08-30] MEDS ORDERED: LACTATED RINGERS 1,000 ML IV SCH (13:30)
--- NOTE | 2021-08-30 13:41 | P.PCN ---
Date of Procedure: 08/30/21 Description of Procedure: Pre- and Post-operative Diagnosis: Lumbar facet arthropathy, and lumbar spondylosis without myelopathy. Procedure: #1 Diagnostic Medial Branch Block at bilateral Lumbar 4/5 and #1 diagnostic dorsal ramus block at Lumbar 5/ sacral ala levels (total 4 levels) Surgeon: Jacquelyn Gibbs Anesthesia: Local: 1% Lidocaine, IV sedation : Versed and fentanyl. Complications: None EBL: None Specimen removed: None Fluoroscopic image: Saved to patient electronic medical records. Indications for Procedure: The patient is well known to pain clinic for his chronic low back pain management. The lumbar facet loading test was positive with a clinical diagnosis of lumbar facet arthropathy. Failed with conservative therapy. Came here for interventional help for better pain relief. Procedure and Findings: The patient was seen and examined. The written informed consent was obtained after explaining the risks, benefits and alternatives of the procedure to the patient. The patient was brought to the procedure room and was placed in the prone position on the operating table table. A pillow was placed under the abdomen to reduce lumbar lordosis. Standard anesthesia monitoring was done through out the procedure. The skin preparation was done with ChloraPrep, and draping was done in usual sterile fashion. Sterile technique was observed throughout the procedure. Under fluoroscopic guidance, right the Lumbar 4, 5 and Sacral ala levels were identified in the AP view. For lumbar L4, and L5 levels the targeting area of superior articular process, and close to the most medial and superior aspect of transverse process identified, marked. 1ml of 1% Lidocaine was used with a 25 gauge needle to achieve adequate local anesthesia of the skin and subcutaneous tissue at each level. A 22 gauge 3.5 inch spinal needle was placed and advanced targeting area which was close to the most medial and superior aspect of the transverse process. For Lumbar 5/ sacral ala level, fluoroscope was used in the anteroposterior view, and the needle tip was placed at the superior and most medial part of sacral ala close to the superior articular process. A bony contact was obtained and needle tip position was confirmed at anteroposterior view. No paresthesia was noted. A negative aspiration was confirmed. 1 ml solution per level was injected, the block solution containing 5 ml of 0.5% ropivacaine preservative-free solution mixed with 40 MG of Kenalog. The needles were removed intact. Entire procedure repeated on the left side. Lumbar area was cleaned and bandages were applied. Disposition : The patient tolerated the procedure very well. The patient was transferred to the recovery room and remained stable until discharged home. The patient was given detailed discharge instructions for infection, bleeding, and increased pain at the injection site, and was advised to seek immediate medical attention should significant side effects develop. The patient will be scheduled with Pain Clinic within 4 weeks for repeat procedure if it's helpful.
[2021-08-30] MEDS ORDERED: IV FLUID CONTINUATION 1,000 ML IV ONE (13:44)
[2021-08-30 13:46] VITALS: RESP 16
--- NOTE | 2021-08-30 13:50 | FL ---
EXAMINATION TYPE: FL guided pain mgmt statistic DATE OF EXAM: 08/30/2021 CLINICAL HISTORY: Low back pain. TECHNIQUE: Fluoroscopy. COMPARISON: None. FINDINGS: Fluoroscopic guidance was provided during pain relief procedure performed by Dr. Morales . A total of 6 seconds of fluoroscopic time was utilized during the procedure and two spot images are acquired. Images acquired shows needle localization at several levels off the midline in the lower lumbar spine. IMPRESSION: As Above.
[2021-08-30 14:06] VITALS: BP 129/75; PULSE 79
== END 2021-08-30 14:23 | disposition home or self-care (01) ==
LOC: ORPAIN 12:37
DX: G89.29 Other chronic pain (principal); M47.816 Spondylosis without myelopathy or radiculopathy, lumbar region; I10 Essential (primary) hypertension; E03.9 Hypothyroidism, unspecified; K21.9 Gastro-esophageal reflux disease without esophagitis; Z81.1 Family history of alcohol abuse and dependence; Z90.49 Acquired absence of other specified parts of digestive tract; Z98.890 Other specified postprocedural states; Z79.890 Hormone replacement therapy; Z79.899 Other long term (current) drug therapy; Z91.014 Allergy to mammalian meats
CPT/HCPCS: 64493; J2250; J3301; J3010; J2795; 99152

== ENCOUNTER → 2021-09-19 | Outpatient (CLI) | payer OTHER ==
[2021-09-19 13:38] VITALS: BP 130/77; PULSE 63; RESP 18
--- NOTE | 2021-09-19 13:38 | P.PN ---
Subjective Progress Note Date: 09/19/21 Principal diagnosis: A 51 yr old male with a history of severe and chronic mid to low back pain secondary to thoracolumbar degenerative disc diseases and lumbar spondylosis with facet arthropathy presents today for evaluation status post facet blocks of the medial branches bilateral L4-L5 #1. Patient states he experienced 75% pain relief for 5 days status post procedure. Pain level is currently at 10 out of 10 in intensity, constant, achy in the lower aspects of his lumbar spine with radiation of pain occasionally down the back of the lower extremities. Patient also complains of mid back pain, constant, achy, 8 out of 10 in intensity without radiation of pain. Pain is provoked by sitting upright. Pain is alleviated with medications, topicals, patches, injections, heat, physical therapy in November 2020, home based stretching regimen, use of an exercise bike, laying in a reclining position, repositioning and rest. Interventional pain procedures completed include facet block of the medial branches bilateral L4-L5 #1 Patient is currently on Jasmeet Daserichristiano from Dr. Cook Patient denies any side effects of the medication(s), denies excessive drowsiness or sleepiness, denies suicidal ideation and reports that the current pain medication is helping to control the pain and improve activities of daily living. Patient denies any motor or sensory deficits. Patient denies any fever or night sweats, denies any change in the bowel movements or urination. Physical Examination: -Constitutional: Cooperative. Not in acute distress . -HEENT: Neck is supple. No lymphadenopathy. No thyromegaly. Normal thyroid size. Eyes: No ptosis , no icterus, no photophobia. ENT: No auditory deficits. Normal oropharynx. No Thrush. - Respiratory: Chest clear to auscultations bilaterally. No wheezing. No rhonchi. - Cardiovascular: Regular rate and rhythm. S1 / S2 , no S3 , no S4. - Gastrointestinal: Abdomen soft no tenderness. Bowel sounds positive in all four quadrants. No organomegaly. - Genitourinary: Deferred. - Neurologic: Cranial nerve II to XII intact. No focal neurological deficits. - Psychatric: Alert & oriented x 3. Matching mood & appropriate affect. Judgment and insight intact. - Lymphatic: No Lymphadenopathy. - Musculoskeletal: Cervical spine: Muscle bulk/ tone/ strength in the bilateral upper extremities normal. Facet loading test cervical area positive. Thoracic spine: Vertebral body tenderness to palpation over T8-T11 Lumbar spine: Motor bulk/ tone/ strength lower extremities , thigh and legs : 5/5 Deep tendon reflexes : Normal Knee Jerk. Normal Ankle Jerk . Vertebral body tenderness to palpation over Lumbar Facet Loading Test positive BL L4-L5 with jump reflex Straight Leg Raise: positive at 30 degrees right side/ left side Gaenslen's Test positive Sacral spine : Severe tenderness over the Sacroiliac joint: right side / left side Range of motion: Flexion of the lumbar spine <60 degrees Range of motion: Extension of the lumbar spine <20 degrees Gaenslen's Test positive Jose test: positive right side / left side Assessment and plan: Chronic mid to low back pain secondary to thoracolumbar degenerative disc disease , lumbar spondylosis with facet arthropathy without myelopathy Recommendation of facet block of the medial branches BL L4-L5 #2. May need a series of treatments, up until RFA, for optimal pain relief. Risks, benefits of procedure discussed and pt verbalized understanding. Denies anticoagulant use or medical history of diabetes. MRI of the thoracic spine without contrast re: M51.34 All patient questions answered MAPS reviewed and it was appropriate. I have spent 31 minutes on patient care today. Dr Christiansen was available by phone for the evaluation of this patient. The time was used to review the medical records including relevant urine studies and Prescription history (MAPs) , review of the available imaging, evaluation and examination of the patient, coordination of care with the medical staff and if applicable referring physicians, as well as creation of the medical record PQRS Measure Charge Sheet PQRS Narrative: Smoking Status Never smoker Hx Alcohol Use (MH) Yes Home Medications: Ambulatory Orders Cetirizine HCl [Zyrtec] 10 mg PO BID PRN 06/18/17 HYDROcodone/APAP 10-325MG [[place] 10-325] 1 tab PO QID PRN 06/18/17 Levothyroxine Sodium [Synthroid] 112 mcg PO DAILY 06/18/17 Montelukast [Singulair] 10 mg PO DAILY 06/18/17 Bisoprolol-Hctz 10-6.25 mg [Ziac 10-6.25 MG] 1 tab PO DAILY 11/05/18 lisinopriL [Zestril] 5 mg PO DAILY 04/27/20 Liraglutide [Victoza 3-Eliu] 1.8 mg SQ DAILY 02/07/21 Omeprazole [PriLOSEC] 40 mg PO DAILY PRN 02/10/21 Repaglinide [Prandin] 1 mg PO AC-TID 02/10/21 Sildenafil Citrate [Viagra] 100 mg PO DAILY PRN 02/10/21 Butalb/APAP/Caff 50-325-40Mg [Fioricet 50-325-40] 1 tab PO Q4H PRN 04/04/21 Cyclobenzaprine [Flexeril] 10 mg PO TID PRN 07/27/21
== END ==
LOC: PNWHC3 13:04
PROVIDERS: ATTEND Specialist
DX: M51.35 Other intervertebral disc degeneration, thoracolumbar region (principal); M47.816 Spondylosis without myelopathy or radiculopathy, lumbar region; G89.29 Other chronic pain; Z91.014 Allergy to mammalian meats
CPT/HCPCS: 99211

== ENCOUNTER → 2021-10-24 | Outpatient (CLI) | payer OTHER ==
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
== END | disposition home or self-care (01) ==
LOC: RADMRIMAIN 21:49
PROVIDERS: ATTEND Specialist
DX: M47.814 Spondylosis without myelopathy or radiculopathy, thoracic region (principal); V99.XXXA Unspecified transport accident, initial encounter
CPT/HCPCS: 72146

== ENCOUNTER 2021-11-15 10:05 | Day surgery (SDC) | payer OTHER ==
[2021-10-25 16:36] VITALS: BMI 32.2
[2021-11-15 10:29] VITALS: RESP 16; TEMP 97.2
[2021-11-15 10:36] LABS: Glucose,Whole Blood 182 mg/dL (75-99)
[2021-11-15] MEDS ORDERED: methylPREDNISolone ACETATE 40 MG/ML 1 ML VIAL ONE (10:54)
[2021-11-15] MEDS ORDERED: ROPIVACAINE 5MG/ML 20ML VIAL ONE (10:54)
[2021-11-15] MEDS ORDERED: fentaNYL (PF) 50 MCG/ML 2 ML AMP ONE (10:54)
[2021-11-15] MEDS ORDERED: MIDAZOLAM 2 MG/2 ML VIAL ONE (10:54)
--- NOTE | 2021-11-15 11:12 | P.PCN ---
Date of Procedure: 11/15/21 Procedure(s) Performed: PREOPERATIVE DIAGNOSIS : 1- Lumbar spondylosis with Facet Arthropathy without myelopathy . POSTOPERATIVE DIAGNOSIS: 1- Lumbar spondylosis with Facet Arthropathy without myelopathy . PROCEDURE: Diagnostic bilateral L3 , L4 ,medial branch block under fluoroscopy guidance(fluoroscopy images available in the radiology Department ) ( To target the facet joint between bilateral L4-5 ) ANESTHESIA:, moderate sedation with intravenous Versed 2 mg and Fentanyl 100 mcg. EBL: Minimal COMPLICATION: None PROCEDURE INDICATION: Chronic low back pain secondary to Facet arthropathy unresponsive to conservative treatment. PROCEDURE DESCRIPTION: the patient was seen and identified in the preop holding area , risks and benefits and possible complications of the procedure and alternative were discussed with the patient, and the patient agreed to proceed with the procedure and signed the consent and vital signs monitored during the procedure and fluoroscopy was used to maximize the benefit and accuracy of the needle placement, and sedation was given to decrease patient anxiety, patient was taken to the procedure room and placed in prone position vital signs monitored in the back prepped with chlorhexidine X3 then under strict sterile technique using a right oblique fluoroscopy ,the junction of the transverse process and the superior articulating process of the right L3 , L4 vertebra which corresponding to the fluoroscopy image of the eye of the Alvin dog on the block side for the medial branches and subsequently , after local infiltration of skin and subcu tissuies with Ropivacaine 0.5 % , one mL at each level ,then 22-gauge Quincke-type needles , 2 needle was used , each one of them placed at the junction of the base of the transverse process and the superior articular process at the appropriate level, and the needle was advanced until the periosteum contacted, needle placement confirmed with AP oblique and lateral view and after appropriate needle placement confirmed, and after negative aspiration for heme and CSF and there was no paresthesia 1 mL of Ropivacaine 0.5% mixed with 20 mg Depo-Medrol , then half mL injected at each level after negative aspiration the needle subsequently removed and the same procedure repeated for the left side at left side at L3 , L4 levels. At the end of the procedure and the needles removed and a bandage applied after the skin was cleaned the cleaning solution patient taken to recovery room in stable condition and monitors in the recovery room for 20-30 minutes and discharged home in stable condition after discharge criteria met and patient will follow up with the pain clinic in 2-4 weeks
[2021-11-15] MEDS ORDERED: LACTATED RINGERS 1,000 ML IV ONE (11:14)
[2021-11-15] MEDS ORDERED: IV FLUID CONTINUATION 800 ML IV ONE (11:14)
[2021-11-15 12:19] VITALS: BP 133/76; PULSE 62
--- NOTE | 2021-11-15 18:44 | FL ---
EXAMINATION TYPE: FL guided pain mgmt statistic DATE OF EXAM: 11/15/2021 FLUOROSCOPY Fluoroscopy time of 15 seconds was used during bilateral lumbar facet blocks. 4 image/s document/s t he procedure.
== END 2021-11-15 12:35 | disposition home or self-care (01) ==
LOC: ORPAIN 10:05
PROVIDERS: ATTEND Specialist
DX: M47.816 Spondylosis without myelopathy or radiculopathy, lumbar region (principal)
CPT/HCPCS: 64493; 64494; J2250; J1030; J3010; J2795; 99152

== ENCOUNTER → 2022-01-02 | Outpatient (CLI) | payer OTHER ==
[2022-01-02 12:33] VITALS: BP 129/81; PULSE 60; RESP 18; TEMP 98.7
--- NOTE | 2022-01-02 12:46 | P.PAINPG ---
PQRS Measure Charge Sheet Comment: A 51 yr old male with a history of severe and chronic low back pain secondary to lumbar degenerative disc diseases and lumbar spondylosis with facet arthropathy presents today for evaluation s/p diagnostic facet block of the medial branches BL L4-L5 x 1. Pt states he experienced 80% pain relief x few hrs s/p procedure. Pt states his pain level returned at 100% the next morning so he is unsure if the facet blocks worked and does not want to revisit the area. Pain level is currently at 10/10 in intensity, constant, localized in the lower aspect of his lumbar spine where it meets the tailbone, L>R, dull/ achy in character w towards the inner groin and thighs. Pain is provoked by sitting. Pain is alleviated with medications ([place], Mobic), topicals, injections, heat, PT & chiropractic treatments one year ago which were ineffective in treating pain, repositioning and rest. Interventional pain procedures completed include MBB BL L4-L5 x 1 Patient is currently on [place] prn, Mobic QD. Patient denies any side effects of the medication(s), denies excessive drowsiness or sleepiness, denies suicidal ideation and reports that the current pain medication is helping to control the pain and improve activities of daily living. Patient denies any motor or sensory deficits. Patient denies any fever or night sweats, denies any change in the bowel movements or urination. Physical Examination: -Constitutional: Cooperative. Not in acute distress . - Neurologic: Cranial nerve II to XII intact. No focal neurological deficits. - Psychatric: Alert & oriented x 3. Matching mood & appropriate affect. Judgment and insight intact. - Musculoskeletal: Cervical spine: Muscle bulk/ tone/ strength in the bilateral upper extremities normal Vertebral body tenderness to palpation over Spurling test positive Distraction test positive Facet loading test positive Thoracic spine Muscle bulk / tone/ strength in the bilateral paraspinal muscles normal Vertebral body tender to palpation over Facet loading test positive Lumbar spine: Motor bulk/ tone/ strength lower extremities , thigh and legs : 5/5 Deep tendon reflexes : Normal Knee Jerk. Normal Ankle Jerk . Vertebral body tenderness to palpation over Lumbar Facet Loading Test positive Straight Leg Raise: positive at 30 degrees right side/ left side Gaenslen's Test positive Sacral spine : Severe tenderness over the Sacroiliac joint: right side / left side Range of motion: Flexion of the lumbar spine <60 degrees Range of motion: Extension of the lumbar spine <20 degrees Gaenslen's Test positive L>R Jose test: positive right side < left side Thigh Thrust Test BL Sacral Thrust Test +BL Assessment and plan: Chronic low back pain secondary to BL sacroiliitis Recommendation of BL SI joint injections. May need a series, up to ever 3 mo, for optimal pain relief. Risks, benefits of procedure discussed and pt verbalized understanding. Denies anticoagulant use or medical history of diabetes. All patient questions answered MAPS reviewed and it was appropriate. I have spent less than 30 minutes on patient care today. Dr Christiansen was available by phone for the evaluation of this patient. The time was used to review the medical records including relevant urine studies and Prescription history (MAPs), review of the available imaging, evaluation and examination of the patient, coordination of care with the medical staff and if applicable referring physicians, as well as creation of the medical record PQRS Narrative: Smoking Status Never smoker Hx Alcohol Use (MH) Yes Home Medications: Ambulatory Orders Cetirizine HCl [Zyrtec] 10 mg PO BID PRN 06/18/17 HYDROcodone/APAP 10-325MG [[place] 10-325] 1 tab PO QID PRN 06/18/17 Levothyroxine Sodium [Synthroid] 112 mcg PO DAILY 06/18/17 Montelukast [Singulair] 10 mg PO DAILY 06/18/17 Bisoprolol-Hctz 10-6.25 mg [Ziac 10-6.25 MG] 1 tab PO DAILY 11/05/18 lisinopriL [Zestril] 5 mg PO DAILY 04/27/20 Liraglutide [Victoza 3-Eliu] 1.8 mg SQ DAILY 02/07/21 Omeprazole [PriLOSEC] 40 mg PO DAILY PRN 02/10/21 Repaglinide [Prandin] 1 mg PO AC-TID 02/10/21 Sildenafil Citrate [Viagra] 100 mg PO DAILY PRN 02/10/21 Butalb/APAP/Caff 50-325-40Mg [Fioricet 50-325-40] 1 tab PO Q4H PRN 04/04/21 Cyclobenzaprine [Flexeril] 10 mg PO TID PRN 07/27/21 Controlled Substance Measures - Controlled Substance Measures Is patient prescribed a controlled substance at discharge?: No
== END ==
LOC: PNWHC3 11:03
PROVIDERS: ATTEND Specialist
DX: G89.29 Other chronic pain (principal); M54.50 Low back pain, unspecified; M46.1 Sacroiliitis, not elsewhere classified; Z91.014 Allergy to mammalian meats
CPT/HCPCS: 99211

== ENCOUNTER 2022-02-16 13:30 | Day surgery (SDC) | payer OTHER ==
[2022-02-15 14:10] VITALS: BMI 32.5
[2022-02-16 13:56] VITALS: TEMP 97.8
[2022-02-16] MEDS ORDERED: LACTATED RINGERS 1,000 ML IV ONE ×2 (14:02→14:22)
[2022-02-16 14:03] LABS: Glucose,Whole Blood 170 mg/dL (70-110)
[2022-02-16] MEDS ORDERED: methylPREDNISolone ACETATE 40 MG/ML 1 ML VIAL ONE (14:07)
[2022-02-16] MEDS ORDERED: MIDAZOLAM 2 MG/2 ML VIAL ONE (14:07)
[2022-02-16] MEDS ORDERED: ROPIVACAINE 5MG/ML 20ML VIAL ONE (14:07)
[2022-02-16] MEDS ORDERED: fentaNYL (PF) 50 MCG/ML 2 ML AMP ONE (14:07)
--- NOTE | 2022-02-16 14:17 | P.PCN ---
Date of Procedure: 02/16/22 Procedure(s) Performed: Procedure= bilateral sacroiliac joints steroid injection under fluoroscopy guidance (fluoroscopy image stored on file in the radiology Department ) Preoperative diagnosis= 1-bilateral sacroiliitis 2-lumbar degenerative disc disease 3-lumbar facet arthropathy Postoperative diagnosis=Same as preop Diagnosis . Complication = none Condition= stable Anesthesia= moderate sedation with intravenous Versed 2 mg , and fentanyl 100 micrograms . Sedation start time: 1408 Sedation end time : 1415 Indication for the procedure= patient complaining of low back pain , examination was positive for severe tenderness over the sacroiliac joints bilaterally and patient diagnosed with sacroiliitis, for this reason he was good candidate for sacroiliac joint steroid injection. Description of the procedure= procedure risk and benefits discussed with the patient, including but not limited, risk of infection and bleeding, and ALLERGIC reaction to the medication and not complete pain relief and patient agreed with the preceding patient taken to the operating room, placed in prone position or standard monitors applied to the patient then after induction of anesthesia back prepped with chlorhexidine 3 times , Then under strict sterile technique, first I did the right sacroiliac joint the which was identified under fluoroscopy guidance been local infiltration of the skin and subcu interstitial with lidocaine 1% then 22-gauge Quincke Needle advanced slowly under fluoroscopy and placed in the right sacroiliac joint needle placement confirmed with AP and oblique and lateral view and after appropriate needle placement confirmed and after negative aspiration, or heme , then Ropivacaine 0.5% 4 mL, and 20 mg of Depo-Medrol mixed together and injected in the right sacroiliac joint after negative aspiration patient tolerated the procedure well without any complication. Then the left sacroiliac joint steroid injection done under strict sterile technique local infiltration of the skin and subcu interstitial at the location of the left sacroiliac joint then a 22-gauge Quincke Needle advanced slowly under fluoroscopy time placed in the left sacroiliac joint, needle placement confirmed with AP and oblique and lateral view then after appropriate needle placement confirmed and after negative aspiration 0.5% Ropivacaine 4 mL and 20 mg of Depo-Medrol injected in the left sacroiliac joint after negative aspiration patient tolerated the procedure well that any complications and she will follow up in clinic 3 weeks
[2022-02-16] MEDS ORDERED: IV FLUID CONTINUATION 800 ML IV ONE (14:22)
[2022-02-16 14:25] VITALS: RESP 20
[2022-02-16 14:40] VITALS: BP 111/70; PULSE 69
--- NOTE | 2022-02-16 19:08 | FL ---
EXAMINATION TYPE: FL guided pain mgmt statistic DATE OF EXAM: 02/16/2022 FLUOROSCOPY Fluoroscopy time of 7 seconds was used during bilateral SI joint injection. 2 image/s document/s the procedure.
== END 2022-02-16 14:56 ==
LOC: ORPAIN 13:30
PROVIDERS: ATTEND Specialist
DX: M46.1 Sacroiliitis, not elsewhere classified (principal); M51.36 Other intervertebral disc degeneration, lumbar region; M47.816 Spondylosis without myelopathy or radiculopathy, lumbar region; M54.50 Low back pain, unspecified
CPT/HCPCS: 27096; J2250; J1030; J3010; J2795

== ENCOUNTER → 2022-03-08 | Outpatient (CLI) | payer OTHER ==
[2022-03-08 13:48] VITALS: BP 146/87; PULSE 50; RESP 18; TEMP 99.3
--- NOTE | 2022-03-08 14:54 | P.PAINPG ---
PQRS Measure Charge Sheet Comment: A 52 yr old male with a history of severe and chronic low back pain secondary to lumbar degenerative disc diseases and lumbar spondylosis with facet arthropathy without myelopathy presents today for evaluation s/p BL SI injection. Pt states he experienced 60% pain relief x 3 days s/p procedure. Pain level is currently at 8/10 in intensity, constant, mid to lower back, dull/ achy in character w shooting towards BLEs and feet. Pain is provoked by sitting/standing/walking for periods of 30 min or more, lifting/ bending. Pain is alleviated with PT x 4 wks in 2020, home guided exercises, heat, ice, medications ([place], Mobic), topicals, repositioning and rest. Interventional pain procedures completed include BL SI injection, ANH L4-L5 x1. Patient is currently on [place], Mobic Patient denies any side effects of the medication(s), denies excessive drowsiness or sleepiness, denies suicidal ideation and reports that the current pain medication is helping to control the pain and improve activities of daily living. Patient denies any motor or sensory deficits. Patient denies any fever or night sweats, denies any change in the bowel movements or urination. Physical Examination: -Constitutional: Cooperative. Not in acute distress . - Neurologic: Cranial nerve II to XII intact. No focal neurological deficits. - Psychatric: Alert & oriented x 3. Matching mood & appropriate affect. Judgment and insight intact. - Musculoskeletal: Cervical spine: Muscle bulk/ tone/ strength in the bilateral upper extremities normal Vertebral body tenderness to palpation over Spurling test positive Distraction test positive Facet loading test positive Thoracic spine Muscle bulk / tone/ strength in the bilateral paraspinal muscles normal Vertebral body tender to palpation over Facet loading test positive Lumbar spine: Motor bulk/ tone/ strength lower extremities , thigh and legs : 5/5 Deep tendon reflexes : Normal Knee Jerk. Normal Ankle Jerk . Vertebral body tenderness to palpation over L5 Lumbar Facet Loading Test positive Straight Leg Raise: positive at 30 degrees right side/ left side Gaenslen's Test positive Sacral spine : Severe tenderness over the Sacroiliac joint: right side / left side Range of motion: Flexion of the lumbar spine <60 degrees Range of motion: Extension of the lumbar spine <20 degrees Gaenslen's Test positive Deric's Test positive Jose test: positive right side / left side Thigh Thrust Test Sacral Thrust Test Assessment and plan: Chronic low back pain secondary to lumbar degenerative disc disease , lumbar spondylosis with facet arthropathy without myelopathy Recommendation of caudal ANH w lysis. May need a series of injections, up to 3 within a 6 mo period, for optimal pain relief. Risks, benefits of procedure discussed and pt verbalized understanding. Admits to anticoagulant use and admits to medical history of diabetes. Protocol for discontinuation/ continu ation of meds peir procedure discussed. All patient questions answered I have spent less than 30 minutes on patient care today. Dr Christiansen was available by phone for the evaluation of this patient. The time was used to review the medical records including relevant urine studies and Prescription history (MAPs), review of the available imaging, evaluation and examination of the patient, coordination of care with the medical staff and if applicable referring physicians, as well as creation of the medical record - Pain Location Bilateral Lower Back Non-Pharmacological Interventions: Heat, Home Exercise, Ice, Inactivity, Physical Therapy, Position/Reposition, Stretching Pharmacological Interventions: Epidural, PRN Medication, Scheduled Medication, Topical Medication PQRS Narrative: Smoking Status Never smoker Hx Alcohol Use (MH) Yes Home Medications: Ambulatory Orders Cetirizine HCl [Zyrtec] 10 mg PO BID PRN 06/18/17 HYDROcodone/APAP 10-325MG [[place] 10-325] 1 tab PO QID PRN 06/18/17 Levothyroxine Sodium [Synthroid] 112 mcg PO DAILY 06/18/17 Montelukast [Singulair] 10 mg PO DAILY 06/18/17 Bisoprolol-Hctz 10-6.25 mg [Ziac 10-6.25 MG] 1 tab PO DAILY 11/05/18 lisinopriL [Zestril] 5 mg PO DAILY 04/27/20 Liraglutide [Victoza 3-Eliu] 1.8 mg SQ DAILY 02/07/21 Omeprazole [PriLOSEC] 40 mg PO DAILY PRN 02/10/21 Repaglinide [Prandin] 1 mg PO AC-TID 02/10/21 Sildenafil Citrate [Viagra] 100 mg PO DAILY PRN 02/10/21 Butalb/APAP/Caff 50-325-40Mg [Fioricet 50-325-40] 1 tab PO Q4H PRN 04/04/21 Cyclobenzaprine [Flexeril] 10 mg PO TID PRN 07/27/21 Meloxicam [Mobic] 7.5 mg PO DAILY 01/30/22 Dapagliflozin Propanediol [Farxiga] 10 mg PO DAILY 02/15/22 Controlled Substance Measures - Controlled Substance Measures Is patient prescribed a controlled substance at discharge?: No
== END ==
LOC: PNWHC3 13:22
PROVIDERS: ATTEND Specialist
DX: M51.36 Other intervertebral disc degeneration, lumbar region (principal); M47.816 Spondylosis without myelopathy or radiculopathy, lumbar region; E11.9 Type 2 diabetes mellitus without complications; G89.29 Other chronic pain; Z91.014 Allergy to mammalian meats
CPT/HCPCS: 99211

== ENCOUNTER 2022-04-25 11:57 | Day surgery (SDC) | payer OTHER ==
[2022-04-10 14:22] VITALS: BMI 31.4
[~2022-04-25 11:57] MED LIST changes: -LIDOCAINE 1% (10MG/ML) FOR IV START INTRADERMA PRN
[2022-04-25] MEDS: LIDOCAINE 1% (10MG/ML) FOR IV START INTRADERMA PRN ×2 (12:25→12:26)
[2022-04-25 12:34] VITALS: TEMP 96.8
[2022-04-25] MEDS ORDERED: MIDAZOLAM 2 MG/2 ML VIAL ONE (12:34)
[2022-04-25] MEDS ORDERED: fentaNYL (PF) 50 MCG/ML 2 ML AMP ONE (12:34)
[2022-04-25] MEDS ORDERED: ROPIVACAINE 5 MG/ML 20 ML AMPULE ONE (12:34)
[2022-04-25] MEDS ORDERED: IOPAMIDOL M200 10 ML VIAL ONE (12:34)
[2022-04-25] MEDS ORDERED: methylPREDNISolone ACETATE 40 MG/ML 1 ML VIAL ONE (12:34)
[2022-04-25 12:45] LABS: Glucose,Whole Blood 174 mg/dL (70-110)
--- NOTE | 2022-04-25 12:49 | P.PCN ---
Date of Procedure: 04/25/22 Description of Procedure: PREOP DIAGNOSIS: Lumbar radiculopathy POSTOP DIAGNOSIS: Same PROCEDURE: Caudal epidural steroid injection with epidurolysis and epidurogram under fluoroscopic guidance Imaging: Fluoroscopy was used, images where saved to the medical record ANESTHESIA: Anesthesia per nurse, moderate sedation was used. Anesthesia supervision time start at 1236 and anesthesia supervision end time in 1247 PROCEDURE INDICATION: The patient with post-laminectomy syndrome with low back pain and radiculopathy radiating down in both legs, here for a caudal epidural steroid injection with epidurolysis. PROCEDURE DESCRIPTION: The patient was seen and identified in the preoperative area. Risks, benefits, complications, and alternatives were discussed with the patient. The patient agreed to proceed with the procedure and signed the consent. IV was started, and vital signs were stable. Patient was taken to the OR and time out was completed. The patient was placed in the prone position on procedure table and a pillow was placed under the abdomen to reduce lumbar lordosis. The lumbosacral area was prepped and draped in the usual sterile fashion. Vital signs were closely monitored during the procedure. Lateral view and the anterior-posterior plates of the sacrum were identified with infiltration of the area overlying the sacral hiatus with 1% lidocaine. A 17 gauge epidural needle was used to advance through the sacral hiatus into the caudal epidural space. Omnipaque 180 dye 2cc was injected and the position of the needle was verified to be in the midline. A Racz catheter was introduced into the epidural space and was advanced towards the L5-S1 interspace under direct fluoroscopic guidance. Multiple passes were made with the catheter for lysis of epidural adhesions avoiding parasthesia and significant resistance. After epidurolysis was complete, 2cc of contrast dye was again used to evaluate spread of contrast. Contrast was spreading beyond the original level prior to epidurolysis to the level L4. After negative aspiration, I injected a solution consisting of 40 mg of Depo- Medrol, 2ml of Preservative free normal saline and 2ml of ropivacaine 0.5% for a total of 5ml. Additional spread was seen to L4 under fluoroscopy. The needle and the catheter were withdrawn intact. Epidurogram findings: Omnipaque 180 mg dye 2 ml was injected with spread of the dye into the caudal epidural space and with spread cutoff at L5 prior to epidurolysis. Post epidurolysis dye 2 ml was injected and spread was seen to L4 COMPLICATIONS: None. DISPOSITION / PLANS: The patient was placed in a supine position and transferred to the recovery area in a stable condition for observation and was discharged from the recovery room after meeting discharge criteria. Home discharge instructions given to the patient by the staff. The patient was reexamined prior to discharge. The patient will schedule a follow up as directed
[2022-04-25] MEDS ORDERED: IV FLUID CONTINUATION 1,000 ML IV ONE (12:50)
--- NOTE | 2022-04-25 13:00 | FL ---
Intraoperative/procedural fluoroscopic services were provided for caudal epidural injection with lysi s. Total fluoroscopy time is 6 seconds with a total of 3 submitted images to PACS. Please see the ope rative note for further details.
[2022-04-25 13:07] VITALS: BP 114/57; PULSE 65; RESP 18
== END 2022-04-25 13:27 | disposition home or self-care (01) ==
LOC: ORPAIN 11:57
PROVIDERS: ATTEND Hospitalist
DX: M47.27 Other spondylosis with radiculopathy, lumbosacral region (principal); M96.1 Postlaminectomy syndrome, not elsewhere classified; I49.5 Sick sinus syndrome
CPT/HCPCS: 62264; J2250; J1030; J3010; Q9966; J2795; C1894

== ENCOUNTER → 2022-04-28 | Outpatient (CLI) | payer OTHER ==
--- NOTE | 2022-04-28 20:57 | MR ---
EXAMINATION TYPE: MR sacroiliac joints wo con DATE OF EXAM: 04/28/2022 COMPARISON: MRI lumbar spine 10/27/2021. CLINICAL INDICATION:Male, 52 years old with history of M46.1; TECHNIQUE: Triplane multisequence imaging was performed of the pelvis. IV Contrast: None FINDINGS: Bladder: Unremarkable. Bowel: Scattered clonic diverticula are present. Peritoneum: A small amount of free fluid in the pelvis. No evidence of adenopathy. Vasculature: Unremarkable. Abdominal wall/soft tissues: Unremarkable. Musculoskeletal: Somewhat heterogenous appearance of the bone marrow with patchy high T1 signal.. No evidence of bony edema adnexa the sacroiliac joints bilaterally. There is minimal osseous spurring al siri the sacroiliac joints. Visualized portions of the sciatic nerves appear intact without evidence o f abnormality. IMPRESSION: 1. Symmetric appearing sacroiliac joints with mild degeneration changes. No abnormal bony edema near the sacroiliac joints or in the visualized osseous structures. Visualized sciatic nerves appear with in normal limits. 2. Clonic diverticulosis.
== END | disposition home or self-care (01) ==
LOC: RADMRIMAIN 19:12
PROVIDERS: ATTEND Orthopaedic Surgery
DX: K57.30 Diverticulosis of large intestine without perforation or abscess without bleeding (principal); M46.1 Sacroiliitis, not elsewhere classified
CPT/HCPCS: 72195

== ENCOUNTER → 2022-05-17 | Outpatient (CLI) | payer OTHER ==
[2022-05-17 13:53] VITALS: BP 129/82; PULSE 68; RESP 18; TEMP 97.8
--- NOTE | 2022-05-17 14:27 | P.PAINPG ---
PQRS Measure Charge Sheet Comment: A 52 yr old male with a history of severe and chronic low back pain secondary to lumbar DDD and spondylosis with facet arthropathy without myelopathy presents today for evaluation s/p Caudal ANH w lysis. Pt states he experienced 50 % pain relief x 3 wks s/p procedure. Pain level is currently at 7/10 in intensity, constant, localized in the L lower lumbar spine, sharp, burning in character w shooting towards the L glutes, L buttocks and L hip and L thigh. Pain is provoked by sitting for periods of 30 min or more. Pain is alleviated with PT in the past without relief, home guided exercises daily, heat, meds ([place], Mobic, Lidoderm), walking, repositioning and rest. Interventional pain procedures completed include Caudal ANH w lysis Patient is currently on [place], Mobic, Lidoderm patches Patient denies any side effects of the medication(s), denies excessive drowsiness or sleepiness, denies suicidal ideation and reports that the current pain medication is helping to control the pain and improve activities of daily living. Patient denies any motor or sensory deficits. Patient denies any fever or night sweats, denies any change in the bowel movements or urination. Physical Examination: -Constitutional: Cooperative. Not in acute distress . - Neurologic: Cranial nerve II to XII intact. No focal neurological deficits. - Psychatric: Alert & oriented x 3. Matching mood & appropriate affect. Judgment and insight intact. - Musculoskeletal: Cervical spine: Muscle bulk/ tone/ strength in the bilateral upper extremities normal Vertebral body tenderness to palpation over Spurling test positive Distraction test positive Facet loading test positive Thoracic spine Muscle bulk / tone/ strength in the bilateral paraspinal muscles normal Vertebral body tender to palpation over Facet loading test positive Lumbar spine: Motor bulk/ tone/ strength lower extremities , thigh and legs : 5/5 Deep tendon reflexes : Normal Knee Jerk. Normal Ankle Jerk . Vertebral body tenderness to palpation over Lumbar Facet Loading Test positive Straight Leg Raise: positive at 30 degrees right side/ left side Gaenslen's Test positive Sacral spine : Severe tenderness over the Sacroiliac joint: right side / left side Range of motion: Flexion of the lumbar spine <60 degrees Range of motion: Extension of the lumbar spine <20 degrees Gaenslen's Test positive L Jose test: positive right side / left side Thigh Thrust Test L Sacral Thrust Test Assessment and plan: Chronic LBP secondary to lumbar DDD, spondylosis with facet arthropathy without myelopathy, L Sacroiliitis Recommendation of L SI injection. May need a series, up to every 3 mo, for optimal pain relief. Risks, benefits of procedure discussed and pt verbalized understanding. Admits to anticoagulant use or medical history of diabetes. Protocol for discontinuation/ continuation of medications beckie procedure discussed. All patient questions answered I have spent less than 30 minutes on patient care today. Dr Christiansen was available by phone for the evaluation of this patient. The time was used to review the medical records including relevant urine studies and Prescription history (MAPs), review of the available imaging, evaluation and examination of the patient, coordination of care with the medical staff and if applicable referring physicians, as well as creation of the medical record PQRS Narrative: Smoking Status Never smoker Hx Alcohol Use (MH) Yes Home Medications: Ambulatory Orders Cetirizine HCl [Zyrtec] 10 mg PO BID PRN 06/18/17 HYDROcodone/APAP 10-325MG [[place] 10-325] 1 tab PO QID PRN 06/18/17 Levothyroxine Sodium [Synthroid] 112 mcg PO DAILY 06/18/17 Montelukast [Singulair] 10 mg PO DAILY 06/18/17 Bisoprolol-Hctz 10-6.25 mg [Ziac 10-6.25 MG] 1 tab PO DAILY 11/05/18 lisinopriL [Zestril] 5 mg PO DAILY 04/27/20 Liraglutide [Victoza 3-Eliu] 1.8 mg SQ DAILY 02/07/21 Omeprazole [PriLOSEC] 40 mg PO DAILY PRN 02/10/21 Repaglinide [Prandin] 1 mg PO AC-TID 02/10/21 Sildenafil Citrate [Viagra] 100 mg PO DAILY PRN 02/10/21 Butalb/APAP/Caff 50-325-40Mg [Fioricet 50-325-40] 1 tab PO Q4H PRN 04/04/21 Cyclobenzaprine [Flexeril] 10 mg PO TID PRN 07/27/21 Meloxicam [Mobic] 7.5 mg PO DAILY 01/30/22 Dapagliflozin Propanediol [Farxiga] 10 mg PO DAILY 09/07/22 Famotidine 40 mg PO TID 04/25/22 Controlled Substance Measures - Controlled Substance Measures Is patient prescribed a controlled substance at discharge?: No
== END ==
LOC: PNWHC3 13:17
PROVIDERS: ATTEND Specialist
DX: M47.816 Spondylosis without myelopathy or radiculopathy, lumbar region (principal); M51.36 Other intervertebral disc degeneration, lumbar region; G89.29 Other chronic pain; M46.1 Sacroiliitis, not elsewhere classified; Z91.018 Allergy to other foods
CPT/HCPCS: 99211

== ENCOUNTER 2022-06-13 13:34 | Day surgery (SDC) | payer OTHER ==
[2022-06-09 11:46] VITALS: BMI 31.4
[2022-06-13] MEDS ORDERED: LACTATED RINGERS 1,000 ML IV ONE (13:37)
[2022-06-13 13:53] VITALS: TEMP 97
[2022-06-13 13:59] LABS: Glucose,Whole Blood 187 mg/dL (70-110)
[2022-06-13] MEDS ORDERED: fentaNYL (PF) 50 MCG/ML 2 ML AMP ONE (14:00)
[2022-06-13] MEDS ORDERED: MIDAZOLAM 2 MG/2 ML VIAL ONE (14:00)
[2022-06-13] MEDS ORDERED: ROPIVACAINE 5 MG/ML 20 ML AMPULE ONE (14:00)
[2022-06-13] MEDS ORDERED: methylPREDNISolone ACETATE 40 MG/ML 1 ML VIAL ONE (14:00)
--- NOTE | 2022-06-13 14:09 | P.PCN ---
Date of Procedure: 06/13/22 Procedure(s) Performed: Procedure= Left sacroiliac joints steroid injection under fluoroscopy guidance (fluoroscopy image stored on file in the radiology Department ) Preoperative diagnosis= 1- sacroiliitis 2-lumbar degenerative disc disease 3- lumbar facet arthropathy Postoperative diagnosis=Same as preop Diagnosis . Complication = none Condition= stable Anesthesia= moderate sedation with intravenous Versed 2 mg , and fentanyl 100 micrograms . Sedation start time: 1402 Sedation end time : 1408 Indication for the procedure= patient complaining of low back pain , examination was positive for severe tenderness over the sacroiliac joints , and patient diagnosed with sacroiliitis, for this reason he was good candidate for sacroiliac joint steroid injection. Description of the procedure= procedure risk and benefits discussed with the patient, including but not limited, risk of infection and bleeding, and ALLERGIC reaction to the medication and not complete pain relief and patient agreed with the preceding patient taken to the operating room, placed in prone position or standard monitors applied to the patient then after induction of anesthesia back prepped with chlorhexidine 3 times ,Then the left sacroiliac joint steroid inj ection done under strict sterile technique local infiltration of the skin and subcu interstitial at the location of the left sacroiliac joint then a 22-gauge Quincke Needle advanced slowly under fluoroscopy time placed in the left sacroiliac joint, needle placement confirmed with AP and oblique and lateral view then after appropriate needle placement confirmed and after negative aspiration 0.5% Ropivacaine 4 mL and 40 mg of Depo-Medrol injected in the left sacroiliac joint after negative aspiration patient tolerated the procedure well that any complications and she will follow up in clinic 3 weeks
[2022-06-13] MEDS ORDERED: LIDOCAINE 1% (10MG/ML) FOR IV START INTRADERMA PRN (14:11)
[2022-06-13] MEDS ORDERED: LACTATED RINGERS 1,000 ML IV SCH (14:11)
[2022-06-13] MEDS ORDERED: IV FLUID CONTINUATION 1,000 ML IV ONE (14:13)
[2022-06-13 14:15] VITALS: RESP 18
--- NOTE | 2022-06-13 14:20 | FL ---
EXAMINATION TYPE: FL guided pain mgmt statistic DATE OF EXAM: 06/13/2022 CLINICAL HISTORY: Sacroiliac joint pain. TECHNIQUE: Fluoroscopy. COMPARISON: None. FINDINGS: Fluoroscopic guidance was provided during pain relief procedure performed by Dr. Arevalo. A total of 7 seconds of fluoroscopic time was utilized during the procedure and 1 spot image is acqu ired. Single image acquired shows needle localization at the inferior sacroiliac joint level. IMPRESSION: As Above.
[2022-06-13 14:27] VITALS: BP 116/70; PULSE 74
== END 2022-06-13 14:45 | disposition home or self-care (01) ==
LOC: ORPAIN 13:34
PROVIDERS: ATTEND Specialist
DX: M46.1 Sacroiliitis, not elsewhere classified (principal); M51.36 Other intervertebral disc degeneration, lumbar region; M47.816 Spondylosis without myelopathy or radiculopathy, lumbar region; Z91.048 Other nonmedicinal substance allergy status; Z88.8 Allergy status to other drugs, medicaments and biological substances
CPT/HCPCS: 27096; J2250; J1030; J3010; J2795

== ENCOUNTER → 2022-06-28 | Outpatient (CLI) | payer OTHER ==
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
[2022-06-28 15:37] VITALS: BP 124/85; PULSE 51; RESP 18; TEMP 98
== END ==
LOC: PNWHC3 13:29
PROVIDERS: ATTEND Specialist
DX: M47.816 Spondylosis without myelopathy or radiculopathy, lumbar region (principal); M51.36 Other intervertebral disc degeneration, lumbar region; E11.9 Type 2 diabetes mellitus without complications; Z79.84 Long term (current) use of oral hypoglycemic drugs; Z91.014 Allergy to mammalian meats
CPT/HCPCS: 99211

== ENCOUNTER 2022-08-22 11:25 | Day surgery (SDC) | payer OTHER ==
[2022-08-22 11:46] VITALS: RESP 16; TEMP 96.9
[2022-08-22 11:55] LABS: Glucose,Whole Blood 185 mg/dL (70-110)
[2022-08-22] MEDS ORDERED: LACTATED RINGERS 1,000 ML IV ONE (11:56)
[2022-08-22] MEDS ORDERED: methylPREDNISolone ACETATE 40 MG/ML 1 ML VIAL ONE (12:30)
[2022-08-22] MEDS ORDERED: ROPIVACAINE 5 MG/ML 20 ML AMPULE ONE (12:30)
[2022-08-22] MEDS ORDERED: MIDAZOLAM 2 MG/2 ML VIAL ONE (12:30)
[2022-08-22] MEDS ORDERED: IV FLUID CONTINUATION 1,000 ML IV ONE (12:50)
--- NOTE | 2022-08-22 12:51 | P.PCN ---
Date of Procedure: 08/22/22 Procedure(s) Performed: Procedure= trigger point injections lumbar paraspinal muscles bilaterally , 3 on the right side from L2 to S1, and 4 on the left side from L2 to S1 Preoperative diagnosis= 1-myofascial pain syndrome lumbar paraspinal muscles 2-lumbar degenerative disc disease 3-lumbar facet arthropathy Postoperative diagnosis=Same as preop Diagnosis . Complication = none Condition= stable Anesthesia= moderate sedation with Versed 2 mg. Sedation started at 1242 and ended at 1247. Indication for the procedure= patient complaining of low back pain , examination was positive for multiple trigger point in the lumbar paraspinal muscles bilaterally and patient diagnosed with myofascial pain syndrome and is here to have trigger point injections Description of the procedure= procedure risk and benefits discussed with the patient, including but not limited, risk of infection and bleeding, and ALLERGIC reaction to the medication and not complete pain relief and patient agreed with the preceding patient taken to the operating room, placed in sitting position or standard monitors applied to the patient then after induction of anesthesia back prepped with chlorhexidine 3 times , then under sterile technique each of the trigger point that was marked in the preop holding area 3 on the right side lumbar paraspinal muscles and 4 on the left side lumbar paraspinal muscles each one of them injected with the 2 mL of the mixture of ropivacaine 0.5% 14 ML mixed with 40 mg of Depo-Medrol and 2 mL of the mixture injected at each trigger point after negative aspiration, using 25-gauge needle, injection done after negative aspiration under was no paresthesia during the injection patient tolerated the procedure well without any complications and he will follow up in the pain clinic in a few weeks
[2022-08-22 13:11] VITALS: BP 115/74; PULSE 60
== END 2022-08-22 13:24 | disposition home or self-care (01) ==
LOC: ORPAIN 11:25
PROVIDERS: ATTEND Specialist
DX: M79.18 Myalgia, other site (principal); M51.36 Other intervertebral disc degeneration, lumbar region; M47.816 Spondylosis without myelopathy or radiculopathy, lumbar region
CPT/HCPCS: 20553; J2250; J1030; J2795; 20552

== ENCOUNTER → 2022-10-09 | Outpatient (CLI) | payer OTHER ==
[2022-10-09 10:52] VITALS: BP 132/49; PULSE 51; RESP 18; TEMP 98.5
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
== END ==
LOC: PNWHC3 10:05
PROVIDERS: ATTEND Specialist
DX: M51.36 Other intervertebral disc degeneration, lumbar region (principal); M46.1 Sacroiliitis, not elsewhere classified; M47.816 Spondylosis without myelopathy or radiculopathy, lumbar region; G89.29 Other chronic pain; Z91.014 Allergy to mammalian meats
CPT/HCPCS: 99211

== ENCOUNTER → 2022-10-26 | Outpatient (CLI) | payer OTHER ==
--- NOTE | 2022-10-27 16:39 | MR ---
EXAMINATION TYPE: MR brain wo/w con DATE OF EXAM: 10/26/2022 7:33 PM CLINICAL INDICATION:Male, 52 years old with history of G43.009, G93.2, E05.00; Headache, swelling lef t side of head, dizziness. COMPARISON: 09/08/2017 and priors. TECHNIQUE: Multi planar, multi sequence imaging was performed through the brain including: T1, T2, In version recovery, susceptibility weighted imaging and gradient echo imaging and Diffusion weighted im aging. The patient was then given intravenous contrast and multi planar, T1 fat-saturation images wer e obtained. IV Contrast: 10 cc Gadavist FINDINGS: The mosley-white junctions, ventricular system, basal cisterns appear unremarkable. Diffusion-weighted imaging shows no evidence of restricted diffusion to suggest acute/subacute infarct. Intracranial art erial flow voids are maintained. Midline structures show no abnormality. Scattered foci of high T2 si gnal intensity are seen within the periventricular white matter appear grossly similar to May be frac tionally increase from prior in 2018. The susceptibility weighted images do not reveal evidence of mi crohemorrhage. After administration of gadolinium, no abnormal enhancement is seen. The bone marrow signal is within normal limits. Paranasal sinuses and mastoid air cells: Mild mucosal thickening most pronounced in the right maxilla ry sinus. Visualized orbits: Orbital contents are intact. The globes protrude from the orbits bilaterally simil ar to prior. IMPRESSION: 1. No evidence of intracranial mass, acute/subacute infarct, or abnormal enhancement. 2. Nonspecific white matter changes, no evidence for active demyelination white matter changes seen p roximally increased no prior given differences in slice selection. Correlate for demyelination, hyper tension, versus small vessel ischemic disease versus others. 3. Similar bilateral exophthalmos.
== END | disposition home or self-care (01) ==
LOC: RADMRIMAIN 18:43
PROVIDERS: ATTEND Family Medicine
DX: G43.009 Migraine without aura, not intractable, without status migrainosus (principal); G93.2 Benign intracranial hypertension; E05.00 Thyrotoxicosis with diffuse goiter without thyrotoxic crisis or storm; H05.20 Unspecified exophthalmos; R90.82 White matter disease, unspecified
CPT/HCPCS: 70553; A9585

== ENCOUNTER 2023-04-13 11:20 | Day surgery (SDC) | payer OTHER ==
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
[~2023-04-13 11:20] MED LIST changes: -LACTATED RINGERS 1,000 ML IV SCH; +Pre Op ABX Message 1 EACH MISC MISCELLANE ONE
[2023-04-13] MEDS ORDERED: diazePAM 5 MG TAB PO STA (12:01)
[2023-04-13 12:31] LABS: Glucose,Whole Blood 132 mg/dL (70-110)
[2023-04-13 12:37] VITALS: TEMP 98.3
[2023-04-13] MEDS ORDERED: LIDOCAINE 2%-EPI 1:100,000 20 ML VIAL INTRAARTIC ONE (13:16)
[2023-04-13] MEDS ORDERED: BUPIVACAINE (PF) 0.5% 30 ML VIAL INTRAARTIC ONE (13:17)
[2023-04-13] MEDS ORDERED: methylPREDNISolone ACETATE 40 MG/ML 1 ML VIAL INTRAARTIC ONE (13:19)
--- NOTE | 2023-04-13 13:48 | P.OP ---
Date of Procedure: 04/13/23 Preoperative Diagnosis: 1. b/l SIJ OA severe 2. low back pain Postoperative Diagnosis: 1. b/l SIJ OA severe 2. low back pain Procedure(s) Performed: 1. bilateral SIJ injection under flouroscopic guidance Implants: None Anesthesia: SAURABHA Surgeon: Chris Thompson Estimated Blood Loss (ml): 1 IV fluids (ml): 0 Urine output (ml): 0 Pathology: none sent Condition: stable Disposition: PACU Indications for Procedure: Mr. Stratton is presenting for evaluation of SI joint pain. It was my pleasure to have seen and examined Mr. Stratton. In our visit today we have had a chance to go over subjective complaints, physical examination findings and treatments including the natural course history without intervention and various interventional options. The patients imaging demonstrates: No evidence of spinal pathology on imaging that would account for his symptoms. He has no hip OA that is visible to account for symptoms. There is b/l SIJ sclerosis noted on pelvis films. There is no evidence of any infective process within the SIJ b/l. No lesions. No fractures.. On physical exam, Mr. Stratton demonstrates: Patient reports pain across buttocks and down the left leg into the toes and down the right leg into the thigh associated with tingling. Patient notes his left side is worse than his right side. Patient is having mild to moderate sleep disturbances as well due to their ongoing pain and associated symptoms. Patient states his pain is increased with walking, sitting, and standing. I have explained to the patient that as their condition progresses it will cause further neurological deficits and eventual paralysis. Based on the patients imaging, physical exam, and the rapid progression and disabling nature of their symptoms, at this time I recommend surgery in the form of a:Bilateral SI joint injections . I discussed the risk and benefits of this procedure at length with Mr. Stratton. The patient agreed to considered pursuing the procedure abovementioned. Prior to surgery, she should follow up with her PCP (Cardio, ID, IM etc) for clearance. Questions were invited and answered, and the patient wishes to proceed as outlined below. Currently, I am recommendin.Bilateral SI joint injections Description of Procedure: Bilateral SIJ injection The patient was seen and examined in the preoperative area. All preoperative protocols were followed. Informed consent was obtained, risks and benefits of the procedure were discussed at length. Risks including bleeding infection damage to the surrounding tissue and risk of reoperation were discussed with the patient. Risk of anesthesia up to and including was discussed with the patient. These are outlined in the risk review. They were willing to accept these risks and all of the risks of surgery. The patient was seen and evaluated by the anesthesia team who deemed them fit for surgery. The site was marked, the patient was willing to proceed with the procedure. The patient was transferred to the operative suite by the Department of anesthesia. They were then drifted off to sleep by the department anesthesia and sedation with local was performed. The patient tolerated this well. Once confirmation of lines and ventilation the patient was transferred to a prone Caleb table very carefully. All bony prominences including wrists, elbows, axilla, chest, hips, and thighs, and feet were padded very well. Special attention was paid to the genitalia and these were padded accordingly. SCDs were placed on bilateral lower extremities and were connected. Arms were well padded and placed on arm boards up and out in the 90/90 position. Once in position, again we confirmed good ventilation capabilities and that lines were running appropriately. The patient's lumbopelvic spine was then exposed. 1010s were p laced outlining the incision site. Standard alcohol was used to clean the incision site and allowed to dry. C-arm was used to biomark the patient and confirm level for incision which was marked with a skin marker. Operative briefing was performed with all teams and everyone in agreement to proceed. The patient was then prepped and draped in a normal sterile fashion. Timeout was then performed and all parties were in agreement with the procedure to be performed. Biplanar fluoroscopy was used to identify the bilateral SI joints which were then accessed with a 18-gauge needle after anesthetic was placed into the subcutaneous tissue in the form of 1% with epinephrine of lidocaine along with a mixture of cortical percent Marcaine without epinephrine. Once there is good anesthesia and the SI joints were accessed Isovue was used to confirm within the joint space. Once this was confirmed 40 of Kenalog along with a mixture of lidocaine and Marcaine were injected into the SI joint. Patient remained stable the entire time without any radicular symptoms during the injection phase. The needles were withdrawn and the area cleaned and Band-Aids placed. The patient was transferred back to their hospital bed atraumatically. Patient was then awakened and extubated by the department of anesthesia having tolerated the procedure very well with no complications. They were transferred to the postoperative care unit in stable condition.
[2023-04-13 14:08] VITALS: RESP 18
--- NOTE | 2023-04-13 14:13 | FL ---
Fluoroscopy INDICATION: Pain FINDINGS: Fluoroscopy time: 7.4 seconds. Total dose area product (DAP) in uGy*m?, mGy*cm? (or similar): 0.5042 Images obtained: 3. IMPRESSION: 1. Documentation of fluoroscopy.
[2023-04-13 14:31] VITALS: BP 109/70; PULSE 80
== END 2023-04-13 14:25 | disposition home or self-care (01) ==
LOC: OR 11:20
PROVIDERS: ATTEND Orthopaedic Surgery
DX: M46.1 Sacroiliitis, not elsewhere classified (principal); G47.30 Sleep apnea, unspecified; J45.909 Unspecified asthma, uncomplicated; E11.9 Type 2 diabetes mellitus without complications; I10 Essential (primary) hypertension; E07.9 Disorder of thyroid, unspecified; J18.9 Pneumonia, unspecified organism; Z79.890 Hormone replacement therapy; Z79.1 Long term (current) use of non-steroidal anti-inflammatories (NSAID); Z79.84 Long term (current) use of oral hypoglycemic drugs; Z90.49 Acquired absence of other specified parts of digestive tract; Z91.014 Allergy to mammalian meats; Z79.51 Long term (current) use of inhaled steroids; Z98.890 Other specified postprocedural states; Z79.899 Other long term (current) drug therapy; Z79.85 Long-term (current) use of injectable non-insulin antidiabetic drugs
CPT/HCPCS: 27096; J3301

== ENCOUNTER → 2023-09-25 | Outpatient (CLI) | payer OTHER ==
--- NOTE | 2023-10-03 09:05 | MR ---
EXAMINATION TYPE: MR brain wo/w con DATE OF EXAM: 09/25/2023 COMPARISON: 10/26/2022 HISTORY: Migraines, Constant exophthalmos CONTRAST: Performed utilizing 9.5 mL intravenous Gadavist gadolinium contrast. TECHNIQUE: Multiplanar, multiecho imaging on a 3.0 Ruchi magnet is performed through the brain. Stud y is performed within 24 hours of arrival to the hospital. The craniovertebral junction is normal. The pituitary is normal. Diffusion-weighted imaging is performed. No abnormal hyperintensity is present to suggest an acute i ntracranial infarct or acute ischemic change. There are multiple scattered areas of hyperintensity through the deep white matter. Subcortical white matter changes are evident. No suspicious enhancement is evident. Differential diagnosis would inclu de multiple sclerosis, microvascular ischemic change, Lyme disease, vasculitis. Exophthalmos is present. Extraocular muscles and optic nerves imaging could extraconal fat appears un remarkable. No suspicious enhancement is evident. Ventricles and sulci are appropriate for the patient age. There is some mucosal thickening through the right maxillary sinus. IMPRESSION: 1. Exophthalmos. Underlying etiology not identified. No masses or extraocular muscle prominence evide nt. 2. Multiple scattered white matter changes differential diagnosis is discussed above.
== END | disposition home or self-care (01) ==
LOC: RADMRIMAIN 18:36
PROVIDERS: ATTEND Family Medicine
DX: G43.109 Migraine with aura, not intractable, without status migrainosus (principal); H05.249 Constant exophthalmos, unspecified eye; R90.82 White matter disease, unspecified
CPT/HCPCS: 70553; A9585

== ENCOUNTER → 2024-06-12 | Outpatient (CLI) | payer OTHER ==
[2024-06-12 16:15] LABS: INR 0.9 (<1.2); Partial Thromboplastin Time 24.2 sec (22.0-30.0); Prothrombin Time 10.4 sec (10.0-12.5)
[2024-06-12 20:26] LABS: HCT 51.7 % (39.6-50.0); HGB 16.9 g/dL (13.0-17.0); MCH 29.2 pg (27.0-32.0); MCHC 32.7 g/dL (32.0-37.0); MCV 89.4 FL (80.0-97.0); Mean Platelet Volume 10.1 FL (9.5-12.2); NRBC Per 100 WBC 0 X 10*3/uL (0.00-0.01); Platelet Count 295 X 10*3/uL (140-440); RBC 5.78 X 10*6/uL (4.40-5.60); RDW 13.2 % (11.5-14.5); WBC 5.67 X 10*3/uL (4.50-10.00)
[2024-06-12 20:59] LABS: BUN/Creat Ratio 9.07 Ratio (12.00-20.00); Blood Urea Nitrogen 13.6 mg/dL (9.0-27.0); Chloride 102 mmol/L (96-109); Glucose 157 mg/dL (70-110); Potassium 4.1 mmol/L (3.5-5.5); Sodium 138 mmol/L (135-145)
[2024-06-12 21:00] LABS: ALT 65 U/L (10-49); AST 41 U/L (14-35); Albumin/Globulin Ratio 1.25 Ratio (1.60-3.17); Alkaline Phosphatase 105 U/L (41-126); Globulin 3.2 g/dL (1.6-3.3); Total Bilirubin 0.4 mg/dL (0.3-1.2); Total Protein 7.2 g/dL (6.2-8.2)
== END | disposition home or self-care (01) ==
LOC: LABPAT 15:10
PROVIDERS: ATTEND Orthopaedic Surgery Sports Medicine
DX: Z01.818 Encounter for other preprocedural examination (principal); Z22.322 Carrier or suspected carrier of Methicillin resistant Staphylococcus aureus; M17.11 Unilateral primary osteoarthritis, right knee
CPT/HCPCS: 36415; 80053; 85027; 85610; 85730; 87070

== ENCOUNTER → 2024-06-23 | Outpatient (CLI) | payer OTHER ==
--- NOTE | 2024-06-23 12:01 | CA ---
Lexiscan Nuclear Stress Test Report Name: Joan Stratton Exam Date: 06/23/2024 10:53 Exam Location: [facility] Stress Ht (in): 68 Wt (lb): 205 BSA: 2.07 Ordering Phys: Jimena Arevalo DO Referring Phys: Emily Nathan PAC Technologist: KIRTI Age: 54 Gender: M : 1970 Procedure CPT: Indications: I20.89 OTHER FORMS OF ANGINA PECTORIS Z01.818 PRE ICD-10 Codes: Patient History: Pre-surgery and abnormal echo. Medications: Meds past 24 hrs: Pretest Chest Pain: STRESS TEST Lexiscan Protocol Exercise Duration (min:sec): 01:[address] Depressions (mm): Angina Score: Basurto Score: Resting HR (bpm): 61 Peak HR (bpm): 106 Resting BP (mmHg): 105 / 76 Peak BP (mmHg): / 75 MPHR: 168 Target HR: 143 % MPHR: 63 METS: 1.0 Total Dose: Peak Dose: Atropine: Double Product: BP Response: Stress Termination: INFUSION COMPLETE Stress Symptoms: NAUSEA Stress Summary: ECG ANALYSIS Resting ECG: Sinus rhythm. Normal conduction. No arrhythmias. Nonspecific ST-T abnormality. Stress ECG: No ECG changes from baseline with Lexiscan infusion. CONCLUSIONS No ECG evidence of ischemia with Lexiscan infusion. Nuclear test results to follow. Dr. Fernando Mahmood MD (Electronically Signed) Final Date: 23 June 2024 12:00
--- NOTE | 2024-06-23 17:03 | NM ---
EXAMINATION TYPE: NM stress lexiscan cardiolite DATE OF EXAM: 06/23/2024 COMPARISON: NONE CLINICAL INDICATION: Male, 54 years old with history of I20.89 OTHER FORMS OF ANGINA PECTORIS Z01.818 PRE, TECHNIQUE: After the intravenous administration of 9.8 mCi Tc 99m Sestamibi - Cardiolite resting SPE CT images acquired 45 minutes post injection. At peak stress 24.8 mCi Tc 99m Sestamibi - Stress images obtained 45 minutes post injection The patient was stressed with 0.4mg Lexiscan. FINDINGS: No fixed defects are evident No reversible stress defects on Spect images. The small defect identified on polar map appears to be artifact. Correlate for EKG changes. This is not readily apparent on additional imaging Wall motion is normal Ejection fraction is calculated to be 58 %. IMPRESSION: 1. No fixed or reversible perfusion defects. 2. Small distal anterolateral wall defect on Polar maps may be artifact. Correlate for EKG changes [facility], , 06/23/2024 5:01 PM
== END | disposition home or self-care (01) ==
LOC: RADNMMAIN 08:01
PROVIDERS: ATTEND Family Medicine
DX: Z01.818 Encounter for other preprocedural examination (principal); I20.89 Other forms of angina pectoris
CPT/HCPCS: 93017; 78452; A9500

== ENCOUNTER 2024-06-26 05:51 | Day surgery (SDC) | payer OTHER ==
[~2024-06-26 05:51] MED LIST changes: +ONDANSETRON 4 MG/2 ML VIAL IVP PRN; -Pre Op ABX Message 1 EACH MISC MISCELLANE ONE; +TRANEXAMIC 1,000 MG/100ML-NACL 1,000 MG in SALINE 1 100ML.BAG IVPB PRN
[2024-06-26] MEDS ORDERED: LIDOCAINE 1% (10MG/ML) FOR IV START INTRADERMA PRN (06:08)
[2024-06-26] MEDS: IV FLUID CONTINUATION 1,000 ML IV ONE (06:16)
[2024-06-26 06:48] LABS: Glucose,Whole Blood 156 mg/dL (70-110)
[2024-06-26] MEDS: MELOXICAM 7.5 MG TAB PO PRN (06:48)
[2024-06-26] MEDS: ACETAMINOPHEN TAB 500 MG TAB PO PRN (06:48)
[2024-06-26] MEDS: DEXAMETHASONE SOD PHOSPHATE 4 MG/ML 1 ML VIAL IV ONE (06:49)
[2024-06-26] MEDS: GABAPENTIN 300 MG CAP PO PRN (06:49)
[2024-06-26] MEDS: ONDANSETRON 4 MG/2 ML VIAL IVP ONE (06:49)
--- NOTE | 2024-06-26 07:16 | P.ANPRN ---
Procedure Note - Anesthesia - Nerve Block Performed Right Adductor Canal Infusion Time Out Performed: Yes Date of Procedure: 06/26/24 Procedure Start Time: 06:53 Procedure Stop Time: 07:00 Location of Patient: PreOp Indication: Acute Post-Operative Pain, Requested by Surgeon Sedation Type: Sedate with meaningful contact maintained Preparation: Sterile Prep, Sterile Dressing Position: Supine Needle Types: Pajunk Needle Gauge: 18 Ultrasound used to visualize needle placement: Yes Injectate: 0.5% Ropivacaine (see comment for volume) (20 mL +10 mL of normal saline +4 mg dexamethasone) Blood Aspirated: No Pain Paresthesia on Injection Noted: No Resistance on Injection: Normal Image Stored and Saved: Yes Events: Uneventful and Well Tolerated
--- NOTE | 2024-06-26 07:17 | P.ANPRN ---
Procedure Note - Anesthesia - Nerve Block Performed Right Flaviock Single Time Out Performed: Yes Date of Procedure: 06/26/24 Procedure Start Time: 07: Procedure Stop Time: 07:06 Location of Patient: PreOp Indication: Acute Post-Operative Pain, Requested by Surgeon Sedation Type: Sedate with meaningful contact maintained Preparation: Sterile Prep Position: Left Lateral Needle Types: Pajunk Needle Gauge: 21 Ultrasound used to visualize needle placement: Yes Ultrasound used to observe medication spread: Yes Injectate: 0.5% Ropivacaine (see comment for volume) (20 mL +10 mL of normal saline +4 mg dexamethasone) Blood Aspirated: No Pain Paresthesia on Injection Noted: No Resistance on Injection: Normal Image Stored and Saved: Yes Events: Uneventful and Well Tolerated
[2024-06-26] MEDS ORDERED: HYDROmorphone (PF) 1 MG/ML ONE (07:30)
[2024-06-26] MEDS ORDERED: PHENYLEPHRINE-0.9% NACL SYG 1,000 MCG/10 ML SYRINGE ONE (07:30)
[2024-06-26] MEDS ORDERED: PROPOFOL 10 MG/ML 20 ML VIAL IV ONE (07:30)
[2024-06-26] MEDS ORDERED: DEXAMETHASONE SOD PHOSPHATE 4 MG/ML 1 ML VIAL ONE (07:30)
[2024-06-26] MEDS ORDERED: SODIUM CHLORIDE 0.9% (PF) 10 ML VIAL ONE (07:30)
[2024-06-26] MEDS ORDERED: MIDAZOLAM 2 MG/2 ML VIAL ONE (07:30)
[2024-06-26] MEDS ORDERED: fentaNYL (PF) 50 MCG/ML 2 ML AMP ONE (07:30)
[2024-06-26] MEDS ORDERED: TRANEXAMIC 1,000 MG/100ML-NACL PREMIX BAG ONE (07:30)
[2024-06-26] MEDS ORDERED: LIDOCAINE 1% INJ 10MG/ML (20 ML MDV) ONE (07:30)
[2024-06-26] MEDS ORDERED: SUCCINYLCHOLINE CHLORIDE 200 MG/10 ML VIAL IV ONE (07:30)
[2024-06-26] MEDS ORDERED: ROPIVACAINE 5 MG/ML 30 ML VIAL ONE (07:30)
[2024-06-26] MEDS: ceFAZolin 1,000 MG in SODIUM CHLORIDE 0.9% 1,000 ML IRRIGATION ONE (07:35)
[2024-06-26] MEDS: MIDAZOLAM 2 MG/2 ML VIAL IV ONE (07:41)
[2024-06-26] MEDS ORDERED: MAGNESIUM HYDROXIDE 2,400 MG/30 ML CUP PO PRN (07:42)
[2024-06-26] MEDS ORDERED: bisacodyL 10 MG SUPP RECTAL PRN (07:42)
[2024-06-26] MEDS ORDERED: NALOXONE 0.4 MG/ML 1 ML VIAL IV PRN (07:42)
[2024-06-26] MEDS ORDERED: ACETAMINOPHEN TAB 325 MG TAB PO PRN (07:42)
[2024-06-26] MEDS ORDERED: ONDANSETRON 4 MG/2 ML VIAL IVP PRN (07:42)
[2024-06-26] MEDS ORDERED: NA PHOS,M-B/NA PHOS,DI-BA 133 ML ENEMA RECTAL PRN (07:42)
[2024-06-26] MEDS ORDERED: HYDROmorphone 0.5 MG/0.5 ML SYRINGE IVP PRN (07:42)
[2024-06-26] MEDS ORDERED: oxyCODONE-APAP 7.5-325MG 1 EACH TAB PO PRN (07:45)
[2024-06-26] MEDS: LACTATED RINGERS 1,000 ML IV ONE ×2 (08:58→13:00)
[2024-06-26] MEDS: ROPIVACAINE 1,100 MG, SODIUM CHLORIDE 0.9% 500 ML 330 ML, EMPTY PAIN BALL 1 EACH MISCELLANE PRN (10:19)
--- NOTE | 2024-06-26 10:35 | XR ---
EXAMINATION TYPE: XR knee limited RT DATE OF EXAM: 06/26/2024 10:29 AM COMPARISON: None. CLINICAL INDICATION: Male, 54 years old with history of Evaluation for Postop abnormality and alignme nt, pain TECHNIQUE: 2 view(s) obtained. FINDINGS: No acute fractures are evident. Tibial and femoral components of the place. Postsurgical soft tissue changes are present. IMPRESSION: 1. No acute fractures post knee replacement [facility], , 06/26/2024 10:33 AM
--- NOTE | 2024-06-26 10:40 | OP ---
OPERATIVE REPORT DATE OF SERVICE : 06/26/2024 COLOR MAKER: Jett Rod PA-C. PREOPERATIVE DIAGNOSIS: Right knee osteoarthrosis. POSTOPERATIVE DIAGNOSIS: Right knee osteoarthrosis. OPERATION: Right total knee arthroplasty. ANESTHESIA: General endotracheal. ESTIMATED BLOOD LOSS: 100 mL. TOURNIQUET TIME: 60 minutes at 250 mmHg. COMPLICATIONS: None apparent. DRAINS: None. DISPOSITION: Postanesthesia care unit. INDICATIONS: Joan is a very pleasant 54-year-old male with longstanding history of right knee pain. History and physical examination are consistent with advanced right knee osteoarthrosis. He has been through significant nonoperative management up to this point. Further treatment options were discussed, and he has decided to go forward with a right total knee arthroplasty. The risks of procedure were discussed with him in detail. These risks include, but are not limited to risk of infection, nerve damage, bleeding, pain, and a small risk of deep vein thrombosis which could lead to fatal pulmonary embolism. There is also small risk of loosening of the implant, which could require revision operation. The patient understands these risks. All of his questions with regard to the risks of procedure were answered to his satisfaction. An appropriate informed consent was obtained. DESCRIPTION OF PROCEDURE: The patient was identified in the preoperative holding area. Surgical site was marked by both the patient and myself. He was given 2 g of Ancef IV prophylactic purposes. He was then transported to the operative suite. He was placed supine on the operating room table. A general anesthetic was then administered, dosed per the anesthesia department without apparent complication. Examination under anesthesia was then performed. The patient was 2 to 3 degrees shy of full extension. He had 100 degrees of flexion in the medial collateral ligament, lateral collateral ligament and posterior cruciate ligaments were stable. Tourniquet was then placed high on the right upper thigh, well-padded in preparation for surgery. The patient's right lower extremity was then prepped and draped in usual sterile fashion. Standard surgical pause was undertaken to ensure that we were operating the correct site and that appropriate preoperative antibiotics were given. All staff were in agreement, and we proceeded. The outlines of the patella marked with surgical pen. A planned 12 cm vertical incision centered over the patella was marked with a surgical pen. The leg was then exsanguinated with an Esmarch dressing. The knee was then flexed, and the tourniquet was inflated to 250 mmHg. The total tourniquet time for the procedure was 60 minutes. Incision was then made with a 10-blade scalpel. Dissection was carried down sharply to the overlying fascia. Great care was taken to minimize the skin flaps. The knee was then exposed using a standard medial parapatellar approach. A small cuff of quadriceps tendon was then left for suturing. He was in quite a bit of varus preoperatively. A standard medial release was then made. Superficial medial collateral ligament was dissected off the bone around to the posterior aspect of the proximal tibia. The medial meniscus was then excised as well. The lateral meniscus was also released anteriorly. The leg was then externally rotated. The patella was not everted and the knee was flexed. Retractors were then placed to protect the collateral ligaments. I then proceeded to remove the infrapatellar fat pad. This was excised sharply tangentially with fibers of the patellar tendon. I then proceeded to remove the peripheral osteophytes. This was done with a rongeur. We then proceeded with the distal femoral resection. He did have near full extension. A planned 9 mm resection was then done. The femoral canal was then entered in the midline of the femur approximately 10 mm anterior to the origin of the posterior cruciate ligament. The alejandra was then advanced down the center of the femur and placed intramedullary. Based on the preoperative radiographs, the angle between the anatomic and mechanical axis of the femur was approximately 4 to 5 degrees. The valgus angle of the distal femoral cutting guide was then set at 4 degrees for the right knee. The distal femoral cutting guide was then advanced over the intramedullary alejandra. This was seated firmly against the femur. Then, as mentioned, we planned to take 9 mm off the distal femur. The cutting block was then secured onto the femur with pins. The jig was then removed. The distal cut was made through the slot of the block. The pins were then removed and the distal femoral cutting block was removed. The accuracy of the distal femoral cuts was checked with 2 flat bars. I then proceeded with femoral sizing. Posterior referencing sizing guide was held firmly against the resected distal surface of the femur. The posterior condyles were resting on the posterior plane of the guide. The sizing stylus was then placed onto the anterior femur. The size was measured as a size 9. I then assessed for femoral rotation. The plan was for 3 degrees of external rotation. Three degrees of external rotation was placed onto the jig. These holes were then marked. I then confirmed the rotation by 3 separate methods. This was done using epicondylar axis as well as Whitesides line and posterior referencing. It was deemed that the external rotation was proper. I then went forward with placement of the femoral cutting block. This was placed over the previously-placed pin holes. The Stephen wing was then placed on the anterior slots to ensure that we would not notch the anterior femur with the anterior femoral cut. I then proceeded with the anterior femoral cut. This was flushed with the anterior cortex of the femur. The posterior cuts were then made followed by the anterior chamfer cut and the posterior chamfer cut. The cutting block was then removed. Throughout the resection, the collateral ligaments were protected with retractors. I then placed a trial size 9 femur fit very nice mediolateral and fit flush with the distal end of the femur. The drill hole was then made. I then proceeded with the tibial cut. I planned for cruciate-retaining knee. The guide was placed and set for varus, valgus, and for slope. The height set for approximately 2 mm resection from the medial tibial plateau which was the lower side. I was happy with the alignment of moderate resection. The cutting block was then pinned to the proximal tibia. The alignment alejandra was removed. The proximal tibia was resected with a reciprocating saw. Again, this was done with retractors protecting the collateral ligaments as well as the posterior cruciate ligament. I then proceeded to evaluate the flexion and extension gaps. A 10 mm block was then placed. The flexion and extension gaps were equal. I then proceeded with resection of posterior osteophytes. Very minimal posterior osteophytes. This was done using curved osteotome. This resected the posterior osteophytes, and posterior capsular stripping was done off the posterior aspect of the femur at this time. The osteophytes were then removed. I then proceeded with resection of the patella. The thickness of the patella was measured using the caliper. The thickness was 24 mm. The thickness of the anticipated patellar dome was taken into account. Resection was then performed and confirmed to be equal in 4 quadrants using a caliper. Approximately 14 mm of bone remained after resection. A 32 x 8.5 mm standard patellar trial was then placed. The holes drilled and the trial was then placed. I then proceeded with sizing tibial plate. A size D tibial plate fit very nicely. I then placed the trial femur, the tibial tray, and the patellar button. A 10 mm trial tibial insert was also placed. The components fit very nicely. He had full extension and flexion. The extension and flexion gaps were equal and stable to both varus and valgus stress. The patella tracked appropriately. The tibial tray rotation was then marked with a Bovie. This was externally rotated properly. I then proceeded with tibial preparation. First, drilled the femoral holes and removed the femoral component. The tibial tray was then set for proper external rotation as well as medial and lateral placement onto the tibia. It was then pinned into place. I then proceeded with punching the keel. I then decided to proceed with cementing of all of our components. The knee was thoroughly irrigated with sterile saline solution via pulse lavage. The lateral geniculate artery was identified and cauterized. All blood was removed from the bone of the tibia, femur, and patella with pulsed lavage. I then proceeded with cementing. Two packs of antibiotic bone cement prepared on the back table by registered nurse surgical services. I then proceeded with cementing of the tibia first. The cement was impacted into the keel as well as deeply seated into the bone. A second coat cement was then placed. The tibia was then impacted into place. Excess cement was removed with Dionte's and Jokers. I then proceeded with cementing of the femoral component. The femoral component was also cemented using standard technique. Excess cement was removed. A 10 mm trial insert was then placed into the knee. It was brought into full extension with a constant axial load placed until the cement had hardened. The patellar component was then cemented. This was held firmly with compressive device until the cement had dried. When the cement had dried, the knee was taken out of extension. All excess cement was removed from around the prosthesis. I then trialed the knee with a 10 mm insert. Flexion and extension gaps were appropriate. The knee was stable. It came into full extension. I decided to go forward with a 10 mm medial congruent cross-linked cruciate- retaining tibial insert. Polyethylene was then placed on the tibial tray and locked into place. The knee was then reduced. The knee was again further irrigated with sterile saline solution with antibiotic added. The tourniquet was then deflated. Total tourniquet time for the procedure was 60 minutes at 250 mmHg. Final components were Augustine Persona size 9 cruciate-retaining femoral component, a size E tibial tray, a 10 mm medial congruent cruciate-retaining polyethylene insert, and a 32 x 8.5 mm patella. I then proceeded with closure. Again, the knee was thoroughly irrigated. The quadriceps tendon and the medial retinaculum were reapproximated with #2 Ethibond suture. The extensor mechanism was then closed with a running #2 Quill suture. Subcutaneous tissues were closed with 2-0 Vicryl interrupted suture. The skin was closed with a running 3-0 Quill suture. Dermabond was applied to the incision. Sterile dressing was applied. All sponge and needle counts were deemed correct prior to closure. The patient tolerated the procedure without apparent complication. He was transferred to the recovery room in stable condition. MMODL / IJN: [id number] /
[2024-06-26 10:57] LABS: Glucose,Whole Blood 221 mg/dL (70-110)
[2024-06-26] MEDS: HYDROmorphone 0.5 MG/0.5 ML SYRINGE IVP PRN ×2 (11:00→20:09)
[2024-06-26] MEDS: INSULIN ASPART (NovoLOG) 100 UNIT/ML VIAL SQ ONE ×2 (11:15→15:05)
[2024-06-26] MEDS: HYDROmorphone 1 MG/ML 1 ML SYRINGE IVP PRN (13:40)
[2024-06-26] MEDS ORDERED: DEXTROSE 50% SYRINGE 50 ML IVP PRN ×2 (15:02)
[2024-06-26] MEDS: LACTATED RINGERS 1,000 ML IV SCH ×2 (15:05)
[2024-06-26] MEDS: droPERidol 5 MG/2 ML VIAL IVP ONE (15:05)
[2024-06-26] MEDS ORDERED: TIOTROPIUM 2.5 MCG INHALER INHALATION PRN (15:43)
[2024-06-26] MEDS ORDERED: SYMBICORT 80-4.5 MCG INHALER INHALATION PRN (15:43)
[2024-06-26] MEDS ORDERED: LORATADINE 10 MG TAB PO PRN (15:43)
[2024-06-26] MEDS ORDERED: BUTALB/APAP/CAFF 50-325-40MG TAB PO PRN (15:43)
[2024-06-26] MEDS: DAPAGLIFLOZIN PROPANEDIOL 10 MG TABLET PO SCH (16:10)
[2024-06-26] MEDS: lisinopriL 5 MG TAB PO SCH (16:10)
[2024-06-26] MEDS: oxyCODONE-APAP 7.5-325MG 1 EACH TAB PO PRN (16:10)
[2024-06-26 16:22] LABS: Glucose,Whole Blood 187 mg/dL (70-110)
[2024-06-26] MEDS: NICOTINE 21MG/24HR PATCH TRANSDERM SCH (16:29)
[2024-06-26 17:06] LABS: Glucose,Whole Blood 172 mg/dL (70-110)
[2024-06-26] MEDS: INSULIN ASPART (NovoLOG) 100 UNIT/ML VIAL SQ SCH (17:13)
[2024-06-26] MEDS: PREGABALIN 75 MG CAP PO SCH (20:08)
[2024-06-26] MEDS: FAMOTIDINE 20 MG TAB PO SCH (20:08)
[2024-06-26] MEDS: ASPIRIN 81 MG PO SCH (20:09)
[2024-06-26] MEDS: SENNOSIDES-DOCUSATE SODIUM 1 EACH TAB PO SCH (20:09)
[2024-06-26] MEDS: CYCLOBENZAPRINE 10 MG TAB PO SCH (20:09)
[2024-06-26 21:11] LABS: Glucose,Whole Blood 208 mg/dL (70-110)
[2024-06-27 06:29] LABS: Glucose,Whole Blood 129 mg/dL (70-110)
[2024-06-27] MEDS: LEVOTHYROXINE 112 MCG TAB PO SCH (06:32)
--- NOTE | 2024-06-27 07:01 | P.PN ---
Progress Note - Text 06/27/24 643am Status post total knee replacement by Dr. Mckay. Patient has an On-Q pump for postop pain control with solution and 8 cc an hour with a VAS of 7. Dressing clean dry and intact. Plan to continue On-Q pump infusion
[2024-06-27] MEDS: BISOPROLOL-HCTZ 10-6.25 MG 1 EACH TAB PO SCH (07:43)
[2024-06-27] MEDS: MULTIVITAMINS, THERA 1 EACH TAB PO SCH (07:44)
[2024-06-27] MEDS: MONTELUKAST 10 MG TAB PO SCH (07:44)
[2024-06-27] MEDS: NICOTINE 21MG/24HR PATCH TRANSDERM SCH (10:03)
[2024-06-27 10:15] LABS: Basophils # (A) 0.01 X 10*3/uL (0.00-0.10); Basophils % (A) 0.1 %; Eosinophils # (A) 0 X 10*3/uL (0.04-0.35); Eosinophils % (A) 0 %; HCT 44.3 % (39.6-50.0); HGB 14.8 g/dL (13.0-17.0); Lymphocytes # (A) 1.11 X 10*3/uL (0.90-5.00); Lymphocytes % (A) 7.8 %; MCH 30.2 pg (27.0-32.0); MCHC 33.4 g/dL (32.0-37.0); MCV 90.4 FL (80.0-97.0); Monocytes # (A) 1.04 X 10*3/uL (0.20-1.00); Monocytes % (A) 7.3 %; NRBC Per 100 WBC 0 X 10*3/uL (0.00-0.01); Neutrophils # (A) 11.96 X 10*3/uL (1.80-7.70); Neutrophils % (A) 84.4 %; Platelet Count 248 X 10*3/uL (140-440); RDW 13.2 % (11.5-14.5); WBC 14.17 X 10*3/uL (4.50-10.00)
--- NOTE | 2024-06-27 10:47 | P.CONS ---
History of Present Illness - Reason for Consult Consult date: 06/27/24 Medical management Requesting physician: Inocencio Mckay - Chief Complaint Right knee adv. osteoarthrosis,status post right total knee arthroplasty - History of Present Illness This is a pleasant 54-year-old gentleman with past medical history significant for asthma, diabetes mellitus, gastroesophageal reflux disease, hypertension, osteoarthritis, sleep apnea, uses BiPAP, hypothyroidism, denies nicotine dependence( needs to be removed from his history), daily marijuana use and multiple other medical issues, status post right total knee arthroplasty secondary to advanced right knee osteoarthrosis. Tolerated procedure well. Reports "throbbing pain" with the removal of his wrap this morning. PT pending. Passing flatus. Denies lightheadedness, dizziness or focal deficits. Denies chest pain, palpitations or shortness of breath. Maintaining O2 sats in the high 90s to 100% on room air. Afebrile, WBC 14.17. Hemoglobin 14.8 platelets 248. Blood sugars better controlled this morning. Hemoglobin A1c 7.8. Review of Systems Constitutional: Denied any fatigue denied any fever. Cardio vascular: denied any chest pain, palpitations Gastrointestinal denied any nausea vomiting Pulmonary: Denied any shortness of breath cough Neurologic denied any new focal deficits All inpatient medications were reviewed and appropriate changes in these medications as dictated in the interval history and assessment and plan. Past Medical History Past Medical History: Asthma, Diabetes Mellitus, GERD/Reflux, Hypertension, Osteoarthritis (OA), Pneumonia, Sleep Apnea/CPAP/BIPAP, Syncope, Thyroid Disorder Additional Past Medical History / Comment(s): recent covid 12-23 tx with paxlovid, pneumonia, migraines, used to use CPAP, "I passed out in the hospital years ago" "They thought it was Lyme disease.", states he never tested positive for Lyme disease, also states "I don't have ligaments in my rt leg" wears leg brace to rt leg. History of Any Multi-Drug Resistant Organisms: None Reported Past Surgical History: Cholecystectomy, Orthopedic Surgery Additional Past Surgical History / Comment(s): arthroscopy rt knee. Past Anesthesia/Blood Transfusion Reactions: No Reported Reaction Past Psychological History: No Psychological Hx Reported Smoking Status: Current every day smoker Past Alcohol Use History: Occasional Past Drug Use History: Marijuana Additional Drug Use History / Comment(s): Marijuana use 3 joints daily. Aware no use 24 hrs prior to procedure. - Past Family History Mother Family Medical History: No Reported History, Hypertension Medications and Allergies Home Medications Medication Instructions Recorded Confirmed Type Cetirizine HCl [Zyrtec] 10 mg PO BID PRN 06/18/17 06/26/24 History HYDROcodone/APAP 10-325MG [[place] 1 tab PO QID PRN 06/18/17 06/26/24 History 10-325] Levothyroxine Sodium [Synthroid] 112 mcg PO QAM 06/18/17 06/26/24 History Montelukast [Singulair] 10 mg PO DAILY 06/18/17 06/26/24 History Bisoprolol-Hctz 10-6.25 mg [Ziac 1 tab PO QAM 11/05/18 06/26/24 History 10-6.25 MG] lisinopriL [Zestril] 5 mg PO QAM 04/27/20 06/26/24 History Sildenafil Citrate [Viagra] 100 mg PO DAILY PRN 02/10/21 06/26/24 History Butalb/APAP/Caff 50-325-40Mg 1 tab PO Q4H PRN 04/04/21 06/26/24 History [Fioricet 50-325-40] Cyclobenzaprine [Flexeril] 10 mg PO BID 07/27/21 06/26/24 History Meloxicam [Mobic] 7.5 mg PO DAILY PRN 01/30/22 06/26/24 History Dapagliflozin Propanediol [Farxiga] 10 mg PO QAM 02/15/22 06/26/24 History Famotidine 40 mg PO BID 04/25/22 06/26/24 History Dulaglutide [Trulicity] 1.5 mg SQ MO 06/19/24 06/26/24 History Fluticasone Propion/Salmeterol 1 puff INHALATION BID PRN 06/19/24 06/26/24 History [Advair 250-50 Diskus] Pregabalin [Lyrica] 75 mg PO HS 06/19/24 06/26/24 History Tiotropium 18 Mcg/Puff [Spiriva] 1 puff INHALATION BID PRN 06/19/24 06/26/24 History Allergies Allergy/AdvReac Type Severity Reaction Status Date / Time Pork/Porcine Containing Allergy Nausea & Verified 06/26/24 06:18 Products Vomiting & [Pork] Diarrhea Physical Exam Vitals: Vital Signs Temp Pulse Pulse Resp BP Pulse Ox 06/27/24 08:00 97.7 F 66 18 126/74 97 06/27/24 02:00 98.7 F 76 17 114/71 100 06/26/24 20:00 98 F 85 17 119/73 100 06/26/24 15:23 75 117/77 98 06/26/24 15:09 78 120/67 98 06/26/24 14:53 82 114/81 99 06/26/24 14:38 72 118/80 98 06/26/24 14:23 70 126/78 97 06/26/24 14:08 73 129/85 98 06/26/24 13:53 83 131/83 99 06/26/24 13:41 98.3 F 85 16 98 06/26/24 12:30 73 15 147/65 97 06/26/24 12:00 75 14 145/67 97 06/26/24 11:45 67 15 150/70 96 06/26/24 11:30 82 15 157/72 93 L 06/26/24 11:15 68 16 157/71 99 06/26/24 10:54 68 16 165/72 99 06/26/24 10:39 71 16 160/70 99 06/26/24 10:24 76 17 154/76 99 06/26/24 10:09 78 15 147/71 99 06/26/24 09:54 97 F L 86 16 147/72 100 Intake and Output 06/26/24 06/27/24 06/27/24 22:59 06:59 14:59 Other: Voiding Method Urinal PHYSICAL EXAM: VITAL SIGNS: [Reviewed] GENERAL: Alert and oriented x 3, sitting up in bed, no acute distress HEENT: Cephalic, atraumatic conjunctivae normal. eyes normal. mmm. NECK: Supple, no JVD. CARDIOVASCULAR: S1, S2 regular. No murmur RESPIRATION: Unlabored, equal air entry ,breath sounds diminished in the bases. ABDOMEN: Soft, nondistended, nontender . No guarding. no masses palpable. +BS. LEGS: Right lower extremity dressing intact with surrounding ice packs. No calf tenderness, positive DP pulse NERVOUS SYSTEM: Cranial N 2-12 grossly normal. No focal deficits. Skin: Warm and dry, no rash Results Labs: Abnormal Lab Results - Last 24 Hours (Table) 06/26/24 06/26/24 06/26/24 Range/Units 10:56 16:20 17:05 POC Glucose (mg/dL) 221 H 187 H 172 H (70-110) mg/dL Hemoglobin A1c (<=6.0) % 06/26/24 06/27/24 06/27/24 Range/Units 21:10 02:33 06:28 POC Glucose (mg/dL) 208 H 129 H (70-110) mg/dL Hemoglobin A1c 7.8 H (<=6.0) % Assessment and Plan Assessment: Advanced right knee osteoarthrosis, status post right total knee arthroplasty Postoperative atelectasis Diabetes mellitus, hemoglobin A1c 7.8. Further diabetic education in clinic with PCP Asthma, chronic, stable Sleep apnea, uses BiPAP Gastroesophageal reflux disease Hypertension Hypothyroidism Daily marijuana use Plan: Continue on current medication regimen ,monitoring and symptomatic treatment. Pain management/DVT prophylaxis as per primary. Aggressive pulmonary toileting with incentive spirometer reinforced with Symbicort Singulair resumed. Tight blood sugar control, will require further diabetic education outpatient in clinic with PCP as hemoglobin A1c 7.8. Home meds have been reviewed and resumed accordingly. GI prophylaxis in place with Pepcid. Denies nicotine dependence-staff to remove from EHR history. PT pending. Discharge planning in progress as per orthopedic surgery. Thank you for allowing us to participate in the care of this gentleman. Follow-up with PCP in 1 week. The impression and plan of care has been dictated as directed. : I performed a history and examination of this patient, discussed the same with the dictator. I agree with the dictator's note ,documented as a scribe. Any additional findings or plans will be noted.
[2024-06-27 11:27] LABS: Glucose,Whole Blood 139 mg/dL (70-110)
[2024-06-27] MEDS: traMADol 50 MG TAB PO PRN (14:43)
--- NOTE | 2024-06-27 16:08 | P.PN ---
Subjective Progress Note Date: 06/27/24 Principal diagnosis: right TKA Patient is seen at bedside this morning. He is postop day #1 from right total knee arthroplasty. He has pain at the surgical site as expected but denies any new complaints. He denies numbness, tingling or calf pain. Review of systems is negative for fever, chills, chest pain, shortness of breath or other Objective - Vital Signs Vital signs: Vital Signs Temp 98.0 F 06/27/24 14:00 Pulse 65 06/27/24 14:00 Resp 18 06/27/24 14:00 BP 104/68 06/27/24 14:00 Pulse Ox 95 06/27/24 14:00 FiO2 Intake & Output 06/26/24 06/27/24 06/27/24 18:59 06:59 18:59 Intake Total 1801 Output Total 100 Balance 1701 Weight 94.9 kg Intake: IV 1801 Output: Estimated Blood Loss 100 Other: Voiding Method Urinal - Exam Inspection reveals a benign surgical wound. There is no active bleeding or drainage. Neurovascular status is intact throughout the lower extremity with motor and sensation fully intact. Calf is soft and nontender. 2+ dorsalis pedis pulse and less than 2 second cap refill is present. - Constitutional General appearance: Present: no acute distress - Labs CBC & Chem 7: 06/27/24 02:33 Labs: Abnormal Lab Results - Last 24 Hours (Table) 06/26/24 06/26/24 06/26/24 Range/Units 16:20 17:05 21:10 WBC (4.50-10.00) X 10*3/uL Immature Gran # (0.00-0.04) X 10*3/uL Neutrophils # (1.80-7.70) X 10*3/uL Monocytes # (0.20-1.00) X 10*3/uL Eosinophils # (0.04-0.35) X 10*3/uL POC Glucose (mg/dL) 187 H 172 H 208 H (70-110) mg/dL Hemoglobin A1c (<=6.0) % 06/27/24 06/27/24 06/27/24 Range/Units 02:33 02:33 06:28 WBC 14.17 H (4.50-10.00) X 10*3/uL Immature Gran # 0.05 H (0.00-0.04) X 10*3/uL Neutrophils # 11.96 H (1.80-7.70) X 10*3/uL Monocytes # 1.04 H (0.20-1.00) X 10*3/uL Eosinophils # 0 L (0.04-0.35) X 10*3/uL POC Glucose (mg/dL) 129 H (70-110) mg/dL Hemoglobin A1c 7.8 H (<=6.0) % 06/27/24 Range/Units 11:25 WBC (4.50-10.00) X 10*3/uL Immature Gran # (0.00-0.04) X 10*3/uL Neutrophils # (1.80-7.70) X 10*3/uL Monocytes # (0.20-1.00) X 10*3/uL Eosinophils # (0.04-0.35) X 10*3/uL POC Glucose (mg/dL) 139 H (70-110) mg/dL Hemoglobin A1c (<=6.0) % Assessment and Plan (1) Osteoarthritis of right knee Narrative/Plan: He will continue with routine postop orthopedic protocol including pain management, wound care, PT, DVT prophylaxis and medical management. Expect that he will transfer to home tomorrow Current Visit: Yes Status: Acute Priority: Medium Code(s): M17.11 - UNILATERAL PRIMARY OSTEOARTHRITIS, RIGHT KNEE SNOMED Code(s): 562189978484777 Time with Patient: Less than 30
[2024-06-27 16:29] LABS: Glucose,Whole Blood 216 mg/dL (70-110)
[2024-06-27 20:33] LABS: Glucose,Whole Blood 148 mg/dL (70-110)
[2024-06-28 06:09] LABS: Glucose,Whole Blood 126 mg/dL (70-110)
--- NOTE | 2024-06-28 11:13 | P.PN ---
Subjective Progress Note Date: 06/28/24 Principal diagnosis: right TKA Patient is seen at bedside this morning. He is postop day #2 from right total knee arthroplasty. He has pain at the surgical site as expected but denies any new complaints. He denies numbness, tingling or calf pain. Review of systems is negative for fever, chills, chest pain, shortness of breath or other Objective - Vital Signs Vital signs: Vital Signs Temp 98.6 F 06/28/24 07:13 Pulse 70 06/28/24 07:13 Resp 16 06/28/24 10:00 BP 130/78 06/28/24 07:13 Pulse Ox 93 L 06/28/24 07:13 FiO2 Intake & Output 06/27/24 06/28/24 06/28/24 18:59 06:59 18:59 Other: Voiding Method Urinal # Voids 1 2 - Exam Inspection reveals a benign surgical wound. There is no active bleeding or drainage. Neurovascular status is intact throughout the lower extremity with motor and sensation fully intact. Calf is soft and nontender. 2+ dorsalis pedis pulse and less than 2 second cap refill is present. - Constitutional General appearance: Present: no acute distress - Labs CBC & Chem 7: 06/27/24 02:33 Labs: Abnormal Lab Results - Last 24 Hours (Table) 06/27/24 06/27/24 06/27/24 Range/Units 11:25 16:27 20:31 POC Glucose (mg/dL) 139 H 216 H 148 H (70-110) mg/dL 06/28/24 Range/Units 06:08 POC Glucose (mg/dL) 126 H (70-110) mg/dL Assessment and Plan (1) Osteoarthritis of right knee Narrative/Plan: He will continue with routine postop orthopedic protocol including pain management, wound care, PT, DVT prophylaxis and medical management. Expect that he will transfer to home tomorrow Current Visit: Yes Status: Acute Priority: Medium Code(s): M17.11 - UNILATERAL PRIMARY OSTEOARTHRITIS, RIGHT KNEE SNOMED Code(s): 467328263927359 Time with Patient: Less than 30
[2024-06-28 11:31] LABS: Glucose,Whole Blood 130 mg/dL (70-110)
--- NOTE | 2024-06-28 13:49 | P.PN ---
Subjective This is a pleasant 54 years old male with past medical history of diabetes mellitus, hypertension, osteoarthritis, asthma and other medical problems as below He underwent right knee total arthroplasty for his severe osteoarthritis by orthopedic team He is currently placed on aspirin 81 mg twice daily, this is per orthopedic team Patient currently denies chest pain or dyspnea. No specific GI/ symptom. No headache dizziness weakness or numbness He denies smoking alcohol or illicit drugs He is hemodynamically stable and afebrile Labs checked and he is has mild leukocytosis 14.7 most likely reactive and hemoglobin A1c is 7.8%, no other labs Objective - Vital Signs Vital signs: Vital Signs Temp 98.6 F 06/28/24 13:37 Pulse 75 06/28/24 13:37 Resp 17 06/28/24 13:37 BP 113/73 06/28/24 13:37 Pulse Ox 95 06/28/24 13:37 FiO2 Intake & Output 06/27/24 06/28/24 06/28/24 18:59 06:59 18:59 Intake Total 200 Balance 200 Intake: Oral 200 Other: Voiding Method Urinal # Voids 1 2 - Exam GENERAL: The patient is alert and oriented x3, not in any acute distress. Well developed, well nourished. HEENT: Pupils are round and equally reacting to light. EOMI. No scleral icterus. No conjunctival pallor. Normocephalic, atraumatic. No pharyngeal erythema. No thyromegaly. CARDIOVASCULAR: S1 and S2 present. No murmurs, rubs, or gallops. PULMONARY: Chest is clear to auscultation, no wheezing , no crackles. ABDOMEN: Soft, nontender, nondistended, normoactive bowel sounds. No palpable organomegaly. -MUSCULOSKELETAL: No joint swelling or deformity. Right knee is swollen, mable ssing in place EXTREMITIES: No cyanosis, clubbing, or pedal edema. NEUROLOGICAL: Gross neurological examination did not reveal any focal deficits. SKIN: No rashes. no petechiae. - Labs CBC & Chem 7: 06/27/24 02:33 Labs: Abnormal Lab Results - Last 24 Hours (Table) 06/27/24 06/27/24 06/28/24 Range/Units 16:27 20:31 06:08 POC Glucose (mg/dL) 216 H 148 H 126 H (70-110) mg/dL 06/28/24 Range/Units 11:28 POC Glucose (mg/dL) 130 H (70-110) mg/dL Assessment and Plan Assessment: Severe osteoarthritis status post right knee total arthroplasty. Hypertension Diabetes mellitus type 2 Obesity with BMI of 31.3 History of GERD Sleep apnea Hypothyroidism Plan: Continue with the current pain medication DVT prophylaxis per orthopedic team I discussed diabetes mellitus with the patient and informed him about his hemoglobin 7.8% and he needs better controlled and he agrees. He is going to continue with his diabetes medication and follow-up with PCP. Currently he is on Trulicity at home and Farxiga which is resumed in the hospital Further recommendation based on the clinical course DVT prophylaxis as above GI prophylaxis on Pepcid We recommend patient follow-up with PCP Dr. Arevalo in 1 week after discharge, he was instructed with the same and he agrees
[2024-06-28 16:16] LABS: Glucose,Whole Blood 169 mg/dL (70-110)
[2024-06-28 21:18] LABS: Glucose,Whole Blood 158 mg/dL (70-110)
[2024-06-29 06:24] LABS: Glucose,Whole Blood 140 mg/dL (70-110)
[2024-06-29 07:02] VITALS: BP 145/73; PULSE 73; RESP 15; TEMP 98
[2024-06-29 11:25] LABS: Glucose,Whole Blood 122 mg/dL (70-110)
[2024-06-29 11:32] LABS: Basophils # (A) 0.06 X 10*3/uL (0.00-0.10); Basophils % (A) 0.7 %; Eosinophils # (A) 0.59 X 10*3/uL (0.04-0.35); Eosinophils % (A) 6.5 %; HCT 40.8 % (39.6-50.0); HGB 13.7 g/dL (13.0-17.0); Lymphocytes # (A) 3.02 X 10*3/uL (0.90-5.00); Lymphocytes % (A) 33.4 %; MCH 29.8 pg (27.0-32.0); MCHC 33.6 g/dL (32.0-37.0); MCV 88.9 FL (80.0-97.0); Monocytes # (A) 0.87 X 10*3/uL (0.20-1.00); Monocytes % (A) 9.6 %; NRBC Per 100 WBC 0 X 10*3/uL (0.00-0.01); Neutrophils # (A) 4.48 X 10*3/uL (1.80-7.70); Neutrophils % (A) 49.6 %; Platelet Count 244 X 10*3/uL (140-440); RBC 4.59 X 10*6/uL (4.40-5.60); RDW 13.2 % (11.5-14.5); WBC 9.04 X 10*3/uL (4.50-10.00)
--- NOTE | 2024-06-29 12:42 | P.DS ---
Providers Expected date of discharge: 06/29/24 Attending physician: Inocencio Mckay Consults: 06/26/24 07:42 Consult Physician Routine Consulting Provider: Damien Arevalo Consult Reason/Comments: post op medical management Do you want consulting provider notified?: Yes Primary care physician: Jimena Arevalo - Discharge Diagnosis(es) (1) Osteoarthritis of right knee Patient was admitted to the OR on 06/26/24 to undergo a right total knee arthroplasty. He had failed conservative measures as an outpatient and desired to proceed with elective surgery after given informed consent. He underwent the above procedure which he tolerated well without complication. Postoperative hospital course has remained without complication. On day of discharge he is afebrile, vital signs stable, labs within acceptable ranges, tolerating by mouth meds and diet, voiding without difficulty, positive flatus, denies abdominal pain or calf pain, pain is controlled on oral pain medication and has no new complaints. Wound is benign, neurovascular status is intact, calf is soft and nontender, abdomen soft and nontender. Review of systems is negative for numbness, tingling, fever, chills, chest pain, shortness of breath, nausea, vomiting, dizziness, headaches, slurred speech or other. Status: Acute Priority: Medium Procedures: Right TKA Patient Condition at Discharge: Good Plan - Discharge Summary Discharge Rx Participant: No New Discharge Prescriptions: New Aspirin [Adult Low Dose Aspirin EC] 81 mg PO BID #60 tab Docusate [Colace] 100 mg PO BID #60 capsule oxyCODONE-APAP 7.5-325MG [Percocet 7.5-325 mg] 1 tab PO Q4HR PRN #24 tab PRN Reason: Pain No Action Levothyroxine Sodium [Synthroid] 112 mcg PO QAM HYDROcodone/APAP 10-325MG [[place] 10-325] 1 tab PO QID PRN PRN Reason: Pain Cetirizine HCl [Zyrtec] 10 mg PO BID PRN PRN Reason: Allergic Reaction Montelukast [Singulair] 10 mg PO DAILY Bisoprolol-Hctz 10-6.25 mg [Ziac 10-6.25 MG] 1 tab PO QAM lisinopriL [Zestril] 5 mg PO QAM Cyclobenzaprine [Flexeril] 10 mg PO BID Dulaglutide [Trulicity] 1.5 mg SQ MO Tiotropium 18 Mcg/Puff [Spiriva] 1 puff INHALATION BID PRN PRN Reason: Shortness Of Breath Or Wheezing Pregabalin [Lyrica] 75 mg PO HS Sildenafil Citrate [Viagra] 100 mg PO DAILY PRN PRN Reason: E.D. Butalb/APAP/Caff 50-325-40Mg [Fioricet 50-325-40] 1 tab PO Q4H PRN PRN Reason: Migraine Headache Meloxicam [Mobic] 7.5 mg PO DAILY PRN PRN Reason: ARTHRITIC PAIN Dapagliflozin Propanediol [Farxiga] 10 mg PO QAM Famotidine 40 mg PO BID Fluticasone Propion/Salmeterol [Advair 250-50 Diskus] 1 puff INHALATION BID PRN PRN Reason: Shortness Of Breath Or Wheezing Discharge Medication List Cetirizine HCl [Zyrtec] 10 mg PO BID PRN 06/18/17 [History] HYDROcodone/APAP 10-325MG [[place] 10-325] 1 tab PO QID PRN 06/18/17 [History] Levothyroxine Sodium [Synthroid] 112 mcg PO QAM 06/18/17 [History] Montelukast [Singulair] 10 mg PO DAILY 06/18/17 [History] Bisoprolol-Hctz 10-6.25 mg [Ziac 10-6.25 MG] 1 tab PO QAM 11/05/18 [History] lisinopriL [Zestril] 5 mg PO QAM 04/27/20 [History] Sildenafil Citrate [Viagra] 100 mg PO DAILY PRN 02/10/21 [History] Butalb/APAP/Caff 50-325-40Mg [Fioricet 50-325-40] 1 tab PO Q4H PRN 04/04/21 [History] Cyclobenzaprine [Flexeril] 10 mg PO BID 07/27/21 [History] Meloxicam [Mobic] 7.5 mg PO DAILY PRN 01/30/22 [History] Dapagliflozin Propanediol [Farxiga] 10 mg PO QAM 02/15/22 [History] Famotidine 40 mg PO BID 04/25/22 [History] Dulaglutide [Trulicity] 1.5 mg SQ MO 06/19/24 [History] Fluticasone Propion/Salmeterol [Advair 250-50 Diskus] 1 puff INHALATION BID PRN 06/19/24 [History] Pregabalin [Lyrica] 75 mg PO HS 06/19/24 [History] Tiotropium 18 Mcg/Puff [Spiriva] 1 puff INHALATION BID PRN 06/19/24 [History] Aspirin [Adult Low Dose Aspirin EC] 81 mg PO BID #60 tab 06/28/24 [Rx] Docusate [Colace] 100 mg PO BID #60 capsule 06/28/24 [Rx] oxyCODONE-APAP 7.5-325MG [Percocet 7.5-325 mg] 1 tab PO Q4HR PRN #24 tab 06/28/24 [Rx] Follow up Appointment(s)/Referral(s): [facility], [NON-STAFF] - As Needed ([facility] will call you to schedule your in home physical therapy visits. ) Inocencio Mckay MD [STAFF PHYSICIAN] - 10 Days Activity/Diet/Wound Care/Special Instructions: Weight bear as tolerated May shower after 3 days if no bleeding Keep wound clean and dry Take meds as directed F/U with Dr. Mckay in office Discharge Disposition: HOME WITH HOME HEALTH SERVICES
--- NOTE | 2024-06-29 12:56 | P.PN ---
Subjective This is a pleasant 54 years old male with past medical history of diabetes mellitus, hypertension, osteoarthritis, asthma and other medical problems as below He underwent right knee total arthroplasty for his severe osteoarthritis by orthopedic team He is currently placed on aspirin 81 mg twice daily, this is per orthopedic team Patient currently denies chest pain or dyspnea. No specific GI/ symptom. No headache dizziness weakness or numbness He denies smoking alcohol or illicit drugs He is hemodynamically stable and afebrile Labs checked and he is has mild leukocytosis 14.7 most likely reactive and hemoglobin A1c is 7.8%, no other labs 06/29 Patient is clinically doing well No new symptom Pain controlled Glucose 122, I offered to add more diabetes mellitus pills and he declines stating this is from his hospitalization. He agrees to follow-up with PCP upon discharge as instructed Objective - Vital Signs Vital signs: Vital Signs Temp 98.0 F 06/29/24 07:01 Pulse 73 06/29/24 07:01 Resp 15 06/29/24 07:01 BP 145/73 06/29/24 07:01 Pulse Ox 96 06/29/24 07:01 FiO2 Intake & Output 06/28/24 06/29/24 06/29/24 18:59 06:59 18:59 Intake Total 200 Balance 200 Intake: Oral 200 Other: Voiding Method Urinal Toilet - Exam GENERAL: The patient is alert and oriented x3, not in any acute distress. Well developed, well nourished. HEENT: Pupils are round and equally reacting to light. EOMI. No scleral icterus. No conjunctival pallor. Normocephalic, atraumatic. No pharyngeal erythema. No thyromegaly. CARDIOVASCULAR: S1 and S2 present. No murmurs, rubs, or gallops. PULMONARY: Chest is clear to auscultation, no wheezing , no crackles. ABDOMEN: Soft, nontender, nondistended, normoactive bowel sounds. No palpable organomegaly. -MUSCULOSKELETAL: No joint swelling or deformity. Right knee is swollen, dressing in place EXTREMITIES: No cyanosis, clubbing, or pedal edema. NEUROLOGICAL: Gross neurological examination did not reveal any focal deficits. SKIN: No rashes. no petechiae. - Labs CBC & Chem 7: 06/29/24 05:29 Labs: Abnormal Lab Results - Last 24 Hours (Table) 06/28/24 06/28/2406/29/25 Range/Units 16:15 21:08 05:29 Eosinophils # 0.59 H (0.04-0.35) X 10*3/uL POC Glucose (mg/dL) 169 H 158 H (70-110) mg/dL 06/29/24 06/29/24 Range/Units 06:21 11:24 Eosinophils # (0.04-0.35) X 10*3/uL POC Glucose (mg/dL) 140 H 122 H (70-110) mg/dL Assessment and Plan Assessment: Severe osteoarthritis status post right knee total arthroplasty. Hypertension Diabetes mellitus type 2 Obesity with BMI of 31.3 History of GERD Sleep apnea Hypothyroidism Plan: Continue with the current pain medication DVT prophylaxis per orthopedic team I discussed diabetes mellitus with the patient and informed him about his hemoglobin 7.8% and he needs better controlled and he agrees. He is going to continue with his diabetes medication and follow-up with PCP. Currently he is on Trulicity at home and Farxiga which is resumed in the hospital Further recommendation based on the clinical course DVT prophylaxis as above GI prophylaxis on Pepcid We recommend patient follow-up with PCP Dr. Arevalo in 1 week after discharge, he was instructed with the same and he agrees Patient medically stable
[2024-06-30] MEDS ORDERED: NON FORMULARY DRUG (Dulaglutide [Trulicity] 1.5 MG/0.5 ML Each) SQ SCH (09:00)
== END 2024-06-29 15:00 | disposition home health service (06) ==
LOC: OR 05:51 → 4SSUR 13:02 → OR 06-29 15:00
PROVIDERS: ATTEND Orthopaedic Surgery Sports Medicine
DX: M17.11 Unilateral primary osteoarthritis, right knee (principal); E03.9 Hypothyroidism, unspecified; E11.9 Type 2 diabetes mellitus without complications; E66.9 Obesity, unspecified; G89.18 Other acute postprocedural pain; I10 Essential (primary) hypertension; J45.909 Unspecified asthma, uncomplicated; K21.9 Gastro-esophageal reflux disease without esophagitis; G47.30 Sleep apnea, unspecified; F12.90 Cannabis use, unspecified, uncomplicated; F17.200 Nicotine dependence, unspecified, uncomplicated; Z68.31 Body mass index [BMI] 31.0-31.9, adult; Z79.51 Long term (current) use of inhaled steroids; Z79.82 Long term (current) use of aspirin; Z79.84 Long term (current) use of oral hypoglycemic drugs; Z79.890 Hormone replacement therapy; Z86.16 Personal history of COVID-19; Z90.49 Acquired absence of other specified parts of digestive tract
CPT/HCPCS: 97161; 64999; 64448; 85025 ×2; 83036; 73560; 27447; C1776; C1713; C1751; J2250; J1100; J0690 ×3; J2405; J1171 ×5; J2795

== ENCOUNTER → 2024-12-26 | Outpatient (CLI) | payer OTHER ==
--- NOTE | 2024-12-26 08:35 | MR ---
EXAMINATION TYPE: MR brain wo/w con DATE OF EXAM: 12/26/2024 6:52 AM COMPARISON: 09/25/2023 CLINICAL INDICATION: Male, 54 years old with history of H05.20 G44.009, Worsening Migraines IV Contrast: 9 cc Gadobutrol (None if empty) TECHNIQUE: Multiplanar, multisequence images of the brain and brainstem were acquired before and aft er administration of 9 mL IV Gadobutrol. Diffusion weighted imaging is performed. FINDINGS: No evidence for acute infarction, hemorrhage, mass, mass effect, midline shift, herniation, effacemen t of basal cisterns, or extra-axial fluid collection. The ventricles and sulci are age-appropriate. Major intracranial flow voids are intact. T2/FLAIR weighted sequences show moderate scattered bright white matter foci located throughout the s ubcortical and deep white matter regions of both cervical hemispheres, approximately 30-35 in each ce rebral hemisphere, largest measuring up to 7 mm. Overall unchanged. Gradient sequence shows no evidence for previous intracranial microbleeds. Midline structures demonstrate normal morphology. The craniocervical junction is normal. Post contrast images demonstrate no evidence of pathologic enhancement. Dural venous sinuses are pat ent. Moderate mucosal thickening ethmoid air cells. Globes are intact. IMPRESSION: 1. Moderate scattered punctate burden of T2 bright white matter change in the subcortical and deep wh ite matter regions of both cerebral hemispheres, unchanged from 09/25/2023. Given the patient's histor y, findings may relate to chronic migraines. No enhancing lesions or acute intracranial abnormality s een. 2. Moderate chronic ethmoid sinus disease.. [facility], Workstation: [email or web address] [id number], 12/26/2024 8:33 AM
== END | disposition home or self-care (01) ==
LOC: RADMRIMAIN 06:10
PROVIDERS: ATTEND Family Medicine
DX: J32.2 Chronic ethmoidal sinusitis (principal); H05.20 Unspecified exophthalmos; G44.009 Cluster headache syndrome, unspecified, not intractable
CPT/HCPCS: 70553; A9585